=== PATIENT | female | born 1995 | race Caucasian/White ===

== ENCOUNTER → 2019-06-22 14:44 | Outpatient (BNVA) | payer MEDICAID, SELFPAY | PROVIDERS: Family Provider Internal Medicine; PCP Internal Medicine; Visit Provider Internal Medicine Rheumatology | DX: M05.79 Rheumatoid arthritis with rheumatoid factor of multiple sites without organ or systems involvement (principal); Z79.899 Other long term (current) drug therapy; Z79.52 Long term (current) use of systemic steroids | CPT/HCPCS: 99213 ==

== ENCOUNTER → 2019-08-02 08:37 | Outpatient (BNVA) | payer MEDICAID, SELFPAY | PROVIDERS: Family Provider Internal Medicine; PCP Internal Medicine; Visit Provider Nurse Practitioner Women's Health | DX: O99.519 Diseases of the respiratory system complicating pregnancy, unspecified trimester (principal); Z34.90 Encounter for supervision of normal pregnancy, unspecified, unspecified trimester; O09.891 Supervision of other high risk pregnancies, first trimester; O34.219 Maternal care for unspecified type scar from previous cesarean delivery; O99.321 Drug use complicating pregnancy, first trimester; Z86.19 Personal history of other infectious and parasitic diseases; M05.79 Rheumatoid arthritis with rheumatoid factor of multiple sites without organ or systems involvement; Z79.899 Other long term (current) drug therapy; O99.331 Smoking (tobacco) complicating pregnancy, first trimester; O99.340 Other mental disorders complicating pregnancy, unspecified trimester; F32.9 Major depressive disorder, single episode, unspecified; J45.909 Unspecified asthma, uncomplicated; Z3A.08 8 weeks gestation of pregnancy | CPT/HCPCS: 81003 ==

== ENCOUNTER → 2019-08-15 11:04 | Outpatient (BNVA) | payer MEDICAID, SELFPAY | PROVIDERS: Family Provider Internal Medicine; PCP Internal Medicine; Referring Provider Obstetrics & Gynecology; Visit Provider Obstetrics & Gynecology | DX: O09.891 Supervision of other high risk pregnancies, first trimester (principal); Z79.52 Long term (current) use of systemic steroids; F32.9 Major depressive disorder, single episode, unspecified; J45.909 Unspecified asthma, uncomplicated; M06.9 Rheumatoid arthritis, unspecified; O30.009 Twin pregnancy, unspecified number of placenta and unspecified number of amniotic sacs, unspecified trimester; O34.219 Maternal care for unspecified type scar from previous cesarean delivery; O99.321 Drug use complicating pregnancy, first trimester; O99.331 Smoking (tobacco) complicating pregnancy, first trimester; O99.340 Other mental disorders complicating pregnancy, unspecified trimester; O99.519 Diseases of the respiratory system complicating pregnancy, unspecified trimester; R21 Rash and other nonspecific skin eruption; Z86.19 Personal history of other infectious and parasitic diseases | CPT/HCPCS: 76801; 80053; 80307; 81003; 82950; 85027; 86592; 86762; 86803; 86850; 86900; 87086; 87340 ==

== ENCOUNTER → 2019-08-29 10:15 | Outpatient (BNVA) | payer MEDICAID, SELFPAY | PROVIDERS: Family Provider Internal Medicine; PCP Internal Medicine; Visit Provider Obstetrics & Gynecology | DX: O09.891 Supervision of other high risk pregnancies, first trimester (principal) | CPT/HCPCS: 81000; 87491; 87591 ==

== ENCOUNTER → 2019-09-25 10:35 | Outpatient (BNVA) | payer MEDICAID, SELFPAY | PROVIDERS: Family Provider Internal Medicine; PCP Internal Medicine; Visit Provider Obstetrics & Gynecology | DX: Z34.90 Encounter for supervision of normal pregnancy, unspecified, unspecified trimester (principal); O99.519 Diseases of the respiratory system complicating pregnancy, unspecified trimester | CPT/HCPCS: 81000 ==

== ENCOUNTER → 2019-10-24 08:08 | Outpatient (BNVA) | payer MEDICAID, SELFPAY | PROVIDERS: Family Provider Internal Medicine; PCP Internal Medicine; Visit Provider Obstetrics & Gynecology | DX: O09.891 Supervision of other high risk pregnancies, first trimester (principal); O99.321 Drug use complicating pregnancy, first trimester; D47.3 Essential (hemorrhagic) thrombocythemia | CPT/HCPCS: 80307; 81000; 85007; 85027 ==

== ENCOUNTER → 2019-11-21 10:53 | Outpatient (BNVA) | payer MEDICAID, SELFPAY | PROVIDERS: Family Provider Internal Medicine; PCP Internal Medicine; Visit Provider Obstetrics & Gynecology | DX: O99.519 Diseases of the respiratory system complicating pregnancy, unspecified trimester (principal); J45.909 Unspecified asthma, uncomplicated | CPT/HCPCS: 81000 ==

== ENCOUNTER → 2019-12-20 12:59 | Outpatient (BNVA) | payer MEDICAID, SELFPAY | PROVIDERS: Family Provider Internal Medicine; PCP Internal Medicine; Visit Provider Obstetrics & Gynecology | DX: O09.893 Supervision of other high risk pregnancies, third trimester (principal) | CPT/HCPCS: 81000; 82950; 85027 ==

== ENCOUNTER → 2019-12-31 13:09 | Outpatient (BNVA) | payer MEDICAID, SELFPAY | PROVIDERS: Family Provider Internal Medicine; PCP Internal Medicine; Visit Provider Obstetrics & Gynecology | DX: O09.893 Supervision of other high risk pregnancies, third trimester (principal); O99.340 Other mental disorders complicating pregnancy, unspecified trimester; F32.9 Major depressive disorder, single episode, unspecified; O30.043 Twin pregnancy, dichorionic/diamniotic, third trimester; O99.321 Drug use complicating pregnancy, first trimester; D47.3 Essential (hemorrhagic) thrombocythemia; Z30.2 Encounter for sterilization; O99.89 Other specified diseases and conditions complicating pregnancy, childbirth and the puerperium; M06.9 Rheumatoid arthritis, unspecified; Z86.19 Personal history of other infectious and parasitic diseases; O34.219 Maternal care for unspecified type scar from previous cesarean delivery; O99.519 Diseases of the respiratory system complicating pregnancy, unspecified trimester; J45.909 Unspecified asthma, uncomplicated; O99.331 Smoking (tobacco) complicating pregnancy, first trimester | CPT/HCPCS: 80307; 81000 ==

== ENCOUNTER → 2020-01-03 14:02 | Outpatient (BNVA) | payer MEDICAID, SELFPAY | PROVIDERS: Family Provider Internal Medicine; PCP Internal Medicine; Visit Provider Internal Medicine Rheumatology | DX: M05.79 Rheumatoid arthritis with rheumatoid factor of multiple sites without organ or systems involvement (principal); Z79.899 Other long term (current) drug therapy; O30.043 Twin pregnancy, dichorionic/diamniotic, third trimester; M25.461 Effusion, right knee; F17.210 Nicotine dependence, cigarettes, uncomplicated; Z79.52 Long term (current) use of systemic steroids; Z3A.00 Weeks of gestation of pregnancy not specified | CPT/HCPCS: 20610; 80500; 87070; 87075; 87205; 89050; 99214 ==

== ENCOUNTER → 2020-01-07 13:22 | Outpatient (BNVA) | payer MEDICAID, SELFPAY | PROVIDERS: Family Provider Internal Medicine; PCP Internal Medicine; Visit Provider Obstetrics & Gynecology | DX: Z34.90 Encounter for supervision of normal pregnancy, unspecified, unspecified trimester (principal); O30.043 Twin pregnancy, dichorionic/diamniotic, third trimester | CPT/HCPCS: 81000 ==

== ENCOUNTER → 2020-01-14 14:11 | Outpatient (BNVA) | payer MEDICAID, SELFPAY | PROVIDERS: Family Provider Internal Medicine; PCP Internal Medicine; Visit Provider Obstetrics & Gynecology | DX: Z34.90 Encounter for supervision of normal pregnancy, unspecified, unspecified trimester (principal) | CPT/HCPCS: 81000 ==

== ENCOUNTER → 2020-01-21 13:18 | Outpatient (BNVA) | payer MEDICAID, SELFPAY | PROVIDERS: Family Provider Internal Medicine; PCP Internal Medicine; Visit Provider Obstetrics & Gynecology | DX: O99.89 Other specified diseases and conditions complicating pregnancy, childbirth and the puerperium (principal); D47.3 Essential (hemorrhagic) thrombocythemia; M06.9 Rheumatoid arthritis, unspecified; Z86.19 Personal history of other infectious and parasitic diseases; O99.321 Drug use complicating pregnancy, first trimester; O99.331 Smoking (tobacco) complicating pregnancy, first trimester; O99.340 Other mental disorders complicating pregnancy, unspecified trimester; F32.9 Major depressive disorder, single episode, unspecified; O99.519 Diseases of the respiratory system complicating pregnancy, unspecified trimester; J45.909 Unspecified asthma, uncomplicated; O34.219 Maternal care for unspecified type scar from previous cesarean delivery | CPT/HCPCS: 81000 ==

== ENCOUNTER → 2020-01-22 10:58 | Outpatient (BNVA) | payer MEDICAID, SELFPAY | PROVIDERS: Family Provider Internal Medicine; PCP Internal Medicine; Visit Provider Internal Medicine Rheumatology | DX: M05.79 Rheumatoid arthritis with rheumatoid factor of multiple sites without organ or systems involvement (principal); O09.893 Supervision of other high risk pregnancies, third trimester; Z79.899 Other long term (current) drug therapy; M25.461 Effusion, right knee; Z3A.00 Weeks of gestation of pregnancy not specified | CPT/HCPCS: 20610; 99213; J1030 ==

== ENCOUNTER → 2020-01-28 14:54 | Outpatient (BNVA) | payer MEDICAID, SELFPAY | PROVIDERS: Family Provider Internal Medicine; PCP Internal Medicine; Visit Provider Obstetrics & Gynecology | DX: O09.893 Supervision of other high risk pregnancies, third trimester (principal); J45.909 Unspecified asthma, uncomplicated; D47.3 Essential (hemorrhagic) thrombocythemia; M06.9 Rheumatoid arthritis, unspecified; Z86.19 Personal history of other infectious and parasitic diseases; O34.219 Maternal care for unspecified type scar from previous cesarean delivery; F32.9 Major depressive disorder, single episode, unspecified; O30.043 Twin pregnancy, dichorionic/diamniotic, third trimester; O99.323 Drug use complicating pregnancy, third trimester; O34.211 Maternal care for low transverse scar from previous cesarean delivery; F12.90 Cannabis use, unspecified, uncomplicated; O99.343 Other mental disorders complicating pregnancy, third trimester; O99.333 Smoking (tobacco) complicating pregnancy, third trimester; F17.210 Nicotine dependence, cigarettes, uncomplicated; Z67.91 Unspecified blood type, Rh negative; Z3A.34 34 weeks gestation of pregnancy | CPT/HCPCS: 81000 ==

== ENCOUNTER → 2020-02-04 09:09 | Outpatient (BNVA) | payer MEDICAID, SELFPAY | PROVIDERS: Family Provider Internal Medicine; PCP Internal Medicine; Visit Provider Obstetrics & Gynecology | DX: O09.893 Supervision of other high risk pregnancies, third trimester (principal); Z86.19 Personal history of other infectious and parasitic diseases; D47.3 Essential (hemorrhagic) thrombocythemia; O99.89 Other specified diseases and conditions complicating pregnancy, childbirth and the puerperium; M06.9 Rheumatoid arthritis, unspecified; O34.219 Maternal care for unspecified type scar from previous cesarean delivery; J45.909 Unspecified asthma, uncomplicated; F32.9 Major depressive disorder, single episode, unspecified | CPT/HCPCS: 81000; 87081 ==

== ENCOUNTER → 2020-02-11 13:21 | Outpatient (BNVA) | payer MEDICAID, SELFPAY | PROVIDERS: Family Provider Internal Medicine; PCP Internal Medicine; Visit Provider Obstetrics & Gynecology | DX: O09.893 Supervision of other high risk pregnancies, third trimester (principal); M25.461 Effusion, right knee; Z79.899 Other long term (current) drug therapy; M05.79 Rheumatoid arthritis with rheumatoid factor of multiple sites without organ or systems involvement; D47.3 Essential (hemorrhagic) thrombocythemia; Z86.19 Personal history of other infectious and parasitic diseases; O99.333 Smoking (tobacco) complicating pregnancy, third trimester; O99.343 Other mental disorders complicating pregnancy, third trimester; F32.9 Major depressive disorder, single episode, unspecified; J45.909 Unspecified asthma, uncomplicated; O30.043 Twin pregnancy, dichorionic/diamniotic, third trimester; F17.210 Nicotine dependence, cigarettes, uncomplicated; F12.90 Cannabis use, unspecified, uncomplicated; O99.323 Drug use complicating pregnancy, third trimester; F41.9 Anxiety disorder, unspecified; Z3A.36 36 weeks gestation of pregnancy | CPT/HCPCS: 81000 ==

== ENCOUNTER 2020-02-20 09:00 | Outpatient (CLI) | payer MEDICAID, SELFPAY | END 2020-02-20 09:05 | disposition home or self-care (01) | LOC: LAB 01-14 18:34 | PROVIDERS: PCP Family Medicine; Visit Provider Obstetrics & Gynecology | DX: Z34.90 Encounter for supervision of normal pregnancy, unspecified, unspecified trimester (principal) | CPT/HCPCS: 81000 ==

== ENCOUNTER 2020-02-20 11:50 | Outpatient (CLI) | payer MEDICAID, SELFPAY ==
[2020-02-21 16:13] LABS: Coronavirus Lab Test PTC Negative
== END 2020-02-20 11:55 | disposition home or self-care (01) ==
LOC: OPOB 11:54
PROVIDERS: PCP Internal Medicine; Visit Provider Obstetrics & Gynecology
DX: O26.899 Other specified pregnancy related conditions, unspecified trimester (principal); Z3A.00 Weeks of gestation of pregnancy not specified; R10.9 Unspecified abdominal pain; Z20.828 Contact with and (suspected) exposure to other viral communicable diseases
CPT/HCPCS: 87635; 99211

== ENCOUNTER → 2020-02-22 08:51 | Outpatient (BNVA) | payer MEDICAID, SELFPAY | PROVIDERS: PCP Internal Medicine; Visit Provider Internal Medicine | DX: O09.893 Supervision of other high risk pregnancies, third trimester (principal); Z11.59 Encounter for screening for other viral diseases | CPT/HCPCS: 87635 ==

== ENCOUNTER 2020-02-24 16:36 | Inpatient (IN) | payer MEDICAID, SELFPAY ==
[2020-02-24] VITALS (8 sets, daily range): BP systolic 119–136; BP diastolic 72–84; PULSE 88–107; RESP 18; TEMP 36.8
[2020-02-24 18:09] LABS: Basophils # 0.1 10^3/uL (0.0-0.1); Basophils % 0.4 %; Eosinophils # 0.2 10^3/uL (0.0-0.8); Eosinophils % 1.2 %; Hematocrit 44.1 % (37.0-47.0); Hemoglobin 14.6 g/dL (11.5-15.3); Lymphocytes # 3.1 10^3/uL (0.8-4.8); Lymphocytes % 21.7 %; Mean Corpuscular HGB Conc 33.1 g/dL (30.0-36.0); Mean Corpuscular Hemoglobin 29.4 pg (28.0-34.0); Mean Corpuscular Volume 88.7 fL (81-99); Mean Platelet Volume 10.7 fL (7.4-10.4); Monocytes # 0.9 10^3/uL (0.2-0.9); Monocytes % 6.3 %; Neutrophils % 69.8 %; Nucleated Red Blood Cells % 0 %; Platelet Count 271 10^3/cmm (130-400); Red Blood Count 4.97 10^6/uL (4.1-5.3); Red Cell Distribution Width 14.7 % (12.1-15.1); White Blood Count 14.5 10^3/uL (4.0-10.0)
[2020-02-24] MEDS: fentaNYL 50 mcg/mL INJ 2mL IV (18:40)
[2020-02-24] MEDS: lactated ringers 1,000 ML 125 ML IV (18:41)
== END 2020-02-24 20:10 | disposition home or self-care (01) | DRG 833 ==
LOC: OPOB 16:43 → OBGYN 16:45 → OPOB 18:11 → OBGYN 18:11
PROVIDERS: Admitting Provider Obstetrics & Gynecology; PCP Internal Medicine; Visit Provider Obstetrics & Gynecology
DX: O30.009 Twin pregnancy, unspecified number of placenta and unspecified number of amniotic sacs, unspecified trimester (principal); Z3A.00 Weeks of gestation of pregnancy not specified
CPT/HCPCS: 85025; 86850; 86900; 99211; J3010

== ENCOUNTER 2020-02-25 05:10 | Inpatient (IN) | payer MEDICAID, SELFPAY ==
--- NOTE | 2020-02-20 10:04 | ANES.PREANE2 ---
Pre-Anesthetic Assessment Pre-Anesthetic Assessment: Height/Weight: Height 1.68 m Preop Diagnosis: IUP Proposed Procedure: Operation Date: 02/25/20 07:00 Proposed Procedures p Section Repeat With Tubal/97072 01125 Z34.90 Z98.891 Z30.2(Bilateral) - Nagi Casiano MD Familial anesthetic complications: morphine makes her itch Social: Social History: Tobacco Exam: Pre-Anes Outpt Exam: alert, oriented x 3, clear to auscultation bilaterally and regular rate & rhythm Airway: Cervical ROM: WNL MP: 1 Dentition: Chipped Pulmonary: Pulmonary: Asthma GI: GI: GERD Anesthetic Plan: ASA status: 2 Anesthesia: Regional (specify below) Risk of > 500 ml blood loss (7ml/kg in children): Yes, adequate IV access and fluids planned PFSH Anesthesia PFSH: Medical History Anxiety with depression Diagnosed in 2015 and has been on citalopram managed by her primary care provider Emely at [facility] Asthma Diagnosed as a child. It is usually controlled on albuterol as needed. She has used Advair a couple of times in the past but has not needed to use this since the age of 11. 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 Norman at [facility] [place] for PROM with breech presentation. ---->single layer closure with no extensions. 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
[2020-02-25] VITALS (19 sets, daily range): BP systolic 97–160; BP diastolic 58–89; PULSE 56–81; RESP 16–18; TEMP 36.4–36.8; O2SAT 94–99
[2020-02-25 05:57] LABS: Basophils # 0.1 10^3/uL (0.0-0.1); Basophils % 0.4 %; Eosinophils # 0.2 10^3/uL (0.0-0.8); Eosinophils % 1.5 %; Hemoglobin 14.8 g/dL (11.5-15.3); Lymphocytes # 3.1 10^3/uL (0.8-4.8); Lymphocytes % 20.4 %; Mean Corpuscular HGB Conc 32.9 g/dL (30.0-36.0); Mean Corpuscular Hemoglobin 29.2 pg (28.0-34.0); Mean Corpuscular Volume 88.8 fL (81-99); Mean Platelet Volume 10.6 fL (7.4-10.4); Monocytes % 6.3 %; Neutrophils % 70.9 %; Nucleated Red Blood Cells % 0 %; Platelet Count 271 10^3/cmm (130-400); Red Blood Count 5.07 10^6/uL (4.1-5.3); Red Cell Distribution Width 14.9 % (12.1-15.1)
[2020-02-25] MEDS: lactated ringers 1,000 ML 999 ML IV (06:06)
[2020-02-25] MEDS: famotidine 20 mg/2 mL INJ IVP (06:57)
[2020-02-25] MEDS: metoclopramide 5 mg/mL SDV 2 mL 10 MG IVP (06:57)
[2020-02-25] MEDS: citric acid-sodium citrate 30 mL UDC PO (06:58)
--- NOTE | 2020-02-25 07:02 | W.PM.OPSUD ---
Surgery/Procedure H&P Update DATE OF PROCEDURE: February 25, 2020 DATE H&P PERFORMED: 02/20/20 H&P UPDATE INFORMATION: I have reviewed H&P completed within last 30 days, I have examined patient prior to procedure, No changes to prior documentation and H&P is in [facility] [place] EMR on date indicated PREOP DIAGNOSIS: IUP PRIMARY INDICATION FOR PROCEDURE: twins , RCD PLANNED PROCEDURE: Operation Date: 02/25/20 07:00 Proposed Procedures p Section Repeat With Tubal/[id number] 09137 Z34.90 Z98.891 Z30.2(Bilateral) - Nagi Casiano MD
[2020-02-25] MEDS: methylergonovine 0.2 mg/mL INJ 1 mL IM (07:55)
--- NOTE | 2020-02-25 08:47 | P.OP_ITS ---
Operative Report Date of procedure: February 25, 2020 OPERATIVE REPORT Date of surgery: 02/25/2020 Date of dictation: 02/25/2020 Preoperative diagnosis: 25-year-old 2 para 1-0-0-1 at 38 weeks and 2 days, dichorionic diamniotic twin gestation, rheumatoid arthritis on chronic long-term steroids, asthma, herpes on acyclovir suppression, depression controlled on medication, thrombocythemia, request for sterilization, tobacco use in Postoperative diagnosis/findings: Same, normal tubes and ovaries bilaterally, twin A-baby girl-Shoshana weighing 6 pounds 0 ounces-20 730 with Apgars 8/9, clear fluid, cephalic. Twin B-Shane weighing 8 pounds 5 ounces-2505, 19-1/2 inches long Apgars 8/9, complete breech, clear fluid. Procedure done: Repeat low transverse delivery via Pfannenstiel incision with total salpingectomy for sterilization Specimens removed/disposition of specimens: Placenta and cord x2 sent to pathology, right and left fallopian tubes sent to pathology Surgeon: Dr. Nagi Norman assistant professor of spanish: Gretta Warren Anesthesia: Spinal anesthesia Estimated blood loss: 900 mL ml Intravenous fluids: 1300 mL of LR Urine output: 200 mL of clear urine at the end of procedure Medications:as per anesthesia Complications:none, patient was left to recovery in a stable condition. INDICATION FOR SURGERY: Ms. Gaston is a 25-year-old 2 para 1-0-0-1 with a dichorionic diamniotic twin gestation and previous delivery who desires repeat C- section and tubal ligation. She declined trial of labor. Prior to the surgery we again confirmed that she desired permanent sterilization.We discussed that a tubal ligation is a permanent procedure and that should she desire to have a reversal procedure the success rate of a reversal procedure is low. I also discussed the failure rate of tubal ligation is less than 1% and that should she find out she is after having the procedure, she needs to see an MEDICAL TRANSCRIPTION EDITOR immediately as her risk of having an ectopic is higher. She also understands that the regret rate is higher when people to choose permanent sterilization at a younger age. We also discussed the other forms of reversible contraceptions including an IUD, patch, OCP, nexplanon, Depo-Provera. She understands that she has other options but she wants to have her tubes tied. We discussed the surgical procedure total salpingectomy versus partial salpingectomy with me and reasoning behind this was reviewed with patient. She is absolutely certain she does not want anymore children and definitely wants to proceed with total salpingectomy at this time. She understands there is no chance for reversal with this procedure. PROCEDURE: After consent was obtained, patient was taken to the operating room where spinal anesthesia was placed without difficulty. She was placed supine on the table with a left lateral wedge. Altamirano catheter and SCDs were placed. Patient was given stress dose of steroids-50 mg of hydrocortisone and 2 g of Ancef and route to the operating room.. The abdomen was shaved and then prepped with duo prep. She was draped in a sterile fashion. After checking adequacy of anesthesia, a Pfannenstiel incision was made 2 cm above the pubic symphysis over her old incision. The incision was carried down to the fascia using the Bovie. The fasc ia was nicked in the midline and the fascial incision was extended laterally using curved Mayos. The inferior aspect of the fascia was grasped with lorna clamps and dissected off from the underlying rectus muscle. This was repeated again superiorly without any difficulty. The rectus muscle was . A lorena was made in the peritoneum and the peritoneal incision was carried inferiorly taking care to proceed in layers so as to avoid the bladder. The peritoneal incision was extended superiorly as well. No adhesions were noted from the uterus to the anterior abdominal wall. The uterus was noted to be rotated to the left. There was some adhesions in the area of the bladder to the lower uterine segment as expected with repeat . The bladder peritoneum was grasped with smooth forceps a bladder flap was created. The bladder blade was replaced thus protecting the bladder. A LOW TRANSVERSE UTERINE INCISION was made with a scalpel till the amniotic membrane was reached. The uterine incision was then extended laterally using bandage scissors. Amniotomy was done with Allis clamps and clear amniotic fluid was drained. The breech of baby boy be who was higher up was noted to be presenting and the breech was grasped and breech and legs were delivered without any difficulty as baby was in complete breech presentation. The head followed. No nuchal cord identified. The cord was clamped and cut and baby handed to the waiting legal director Dr. Montag. Second amniotic sac was noted and artificial rupture of membranes with Allis was done with clear fluid. The head of the baby A-female was brought up to the level of the incision and delivered with fundal pressure. The remainder of body followed without any difficulty. The nose and mouth were suctioned, the umbilical cord was clamped and cut and the baby was handed off to the waiting legal director, Dr. Marcelino. The placenta was delivered spontaneously with fundal massage. It was noted to be intact and inspected and noted to be complete with 2 separate membranes and sent to pathology. 2 clamps were placed on umbilical cord of baby A-female and one cord clamp was placed on umbilical cord for baby B-male. The uterus was exteriorized. The interior of the uterus was cleaned of all clot and debris and was noted to be boggy and a single dose of Methergine was given after which with uterine massage the fundus was noted to be florence well.. The uterine incision was closed with 0 Vicryl in a running interlocking manner. Good hemostasis and reapproximation was obtained. [id number] sutures were placed in areas of oozing. The abdomen was irrigated and the gutters were cleaned of clot and debris. Normal tubes and ovaries were noted bilaterally. Attention was turned towards the fallopian tubes and both tubes were identified and followed towards the fimbriated end. Using the abdominal Vuoyant, the mesosalpinx inferior to the fallopian tube was grasped clamped cauterized and then cut. This was done first on the right side in a sequential fashion until the cornual edge of the fallopian tube was reached and the entire fallopian tube was from the adnexa. Good hemostasis and sealed edges were noted. This was then done on the left side in a similar fashion taking care to grasp the mesosalpinx clamped cauterized and cut especially around vascular areas and saturated the entire left fallopian tube was removed. Good hemostasis was noted. The uterus was placed back into the abdomen and uterine incision was noted to be hemostatic. Area of tubal ligation was also inspected and was noted to be hemostatic. The peritoneum was closed with a 2-0 plain in a continuous stitch. The rectus muscle was reapproximated with 2-0 plain suture in a mattress stitch. Good hemostasis was noted in the rectus muscle layer. The fascia was inspected for any defects and none were found and the fascia was closed with 0 looped PDS in continuous stitch. The subcutaneous plane was then irrigated and hemostasis was obtained using the Bovie. The subcutaneous plane was then reapproximated using 2-0 plain suture in a continuous manner. The skin was then closed with 4-0 Monocryl in a subcuticular fashion. Good reapproximation and hemostasis was noted. Steri-Strips were applied. The incision was dressed with Telfa ,ABD and paper tape. The fundus was noted to be firm at the end of the procedure and excess blood was expressed from the vagina. The patient was left to recover in a stable condition. Pre-op Diagnosis: IUP
[2020-02-25] MEDS: dextrose 5%-lactated ringers 1,000 ML 125 ML IV (09:31)
--- NOTE | 2020-02-25 09:44 | PC.NURSE ---
Patient ambulated to OR room at this time
--- NOTE | 2020-02-25 10:05 | PC.NURSE ---
Patient moved up from PACU to PP room 205 at this time
--- NOTE | 2020-02-25 14:46 | PC.NURSE ---
This underwriter mortgage loan went in and spoke with mom regarding temperature regulation and glucose, parents were educated that infants needed to be wrapped up with clothes and a hat on at all times to keep the babies temperatures regulated. Parents were also instructed to feed the infants every 2 hours or on demand.
[2020-02-25] MEDS: hydrocortisone 100 mg/2 mL SDV 25 MG IVP ×2 (14:56→22:59)
[2020-02-25] MEDS: HYDROcodone-acetaminophen 5-325 mg Tablet PO (19:09)
[2020-02-25] MEDS: docusate sodium 100 mg Capsule PO (19:09)
[2020-02-25] MEDS: ferrous sulfate EC 325 mg Tablet PO (19:09)
[2020-02-25 21:01] LABS: Hematocrit 40.9 % (37.0-47.0); Hemoglobin 13.9 g/dL (11.5-15.3); Mean Corpuscular Hemoglobin 29.9 pg (28.0-34.0); Mean Platelet Volume 10.4 fL (7.4-10.4); Platelet Count 256 10^3/cmm (130-400); Red Blood Count 4.65 10^6/uL (4.1-5.3); Red Cell Distribution Width 14.4 % (12.1-15.1); White Blood Count 19.3 10^3/uL (4.0-10.0)
[2020-02-26] VITALS (7 sets, daily range): BP systolic 108–122; BP diastolic 71–78; PULSE 71–82; RESP 16; TEMP 36.4–36.6; O2SAT 94–95
[2020-02-26] MEDS: HYDROcodone-acetaminophen 5-325 mg Tablet PO ×3 (02:14→12:09)
[2020-02-26] MEDS: prenatal vitamin Capsule 1 CAP PO (07:33)
[2020-02-26] MEDS: hydrocortisone 100 mg/2 mL SDV 25 MG IVP (07:33)
[2020-02-26] MEDS: docusate sodium 100 mg Capsule PO ×2 (08:27→17:52)
--- NOTE | 2020-02-26 12:52 | ANE.PACU2 ---
Inpatient post-anesthesia follow up: Airway intact: Yes Vital signs: Temperature 97.9 F Pulse Rate 71 Respiratory Rate 16 Blood Pressure 118/72 Pulse Oximetry 94 Oxygen Delivery Me thod Room Air Oxygen Flow Rate Fraction of Inspir ed Oxygen Hydration adequate: Yes Nausea and vomiting: No Pain level: 4 Mental status: Baseline Additional Comments: no signs of infection at neuraxial site, no lower extremitiy weakness/numbness, no headaches, urinating well
[2020-02-26] MEDS: predniSONE 10 mg Tablet PO (15:55)
--- NOTE | 2020-02-26 18:02 | P.PN_ITS ---
Subjective Subjective: Interval history: SUBJECTIVE: Ms. Gaston is doing well today. She wants to get her IV out soon. She has been ambulating well passing flatus just recently and is looking forward to a regular diet. She denies nausea vomiting fever chills shortness of breath and chest pain patient denies any calf tenderness or leg swelling. She is breast- feeding and bonding well with her children without any problem. She has pain but it is well controlled with p.o. pain medication. OBJECTIVE/PHYSICAL EXAM: Gen.: No acute distress Heart: S1-S2 heard, regular rate and rhythm Lungs: Clear to auscultation bilaterally Abdomen: Soft, fundus firm below umbilicus, tenderness around incision. Incision: Clean dry and intact with Steri-Strips. Legs: No calf tenderness, trace bilateral pitting pedal edema. ASSESSMENT AND PLAN: 25-year-old 2 para 2-0-0-3 status post repeat delivery with total salpingectomy on 02/25/2020 -Doing well-continue routine postoperative care -Altamirano has been discontinued and she is voiding freely -Hemoglobin stable -Asthma stable on Advair-has not needed pro-air -Rheumatoid arthritis-completed stress dose of steroid and is back on 10 mg of p.o. steroids which we will continue postdelivery as well -Anticipate discharge home tomorrow if she continues to do well -Passed flatus-advance to regular diet -She desires her son to be circumcised and consents were signed today Vitals/I&O/Wt Last Vital Signs Temp 97.8 F 02/26/20 15:58 Pulse 72 02/26/20 15:58 Resp 16 02/26/20 15:58 BP 122/77 02/26/20 15:58 Pulse Ox 94 02/26/20 15:58 02/26/20 02/26/20 02/26/20 06:59 14:59 22:59 Output Total 1000 / 4550 Balance -1000 / -3250 Weight last 48 hrs Weight 192 lb Weight 6.773 oz Weight 192 lb Physical Exam Urinary Catheter Management^: Altamirano: Cath Placed During This Visit: yes, but has since been removed by the nurse Reason for Continuing Indwelling Catheter: Decision to DC Catheter Urinary Catheter Date of Insertion: 02/25/20 Urinary Catheter Time of Insertion: 07:15 Date Urinary Catheter Removed: 02/25/20 Time Urinary Catheter Discontinued: 20:45 Data : 02/25/20 20:30 Attestations Medical Necessity Statement*: Anticipate discharge home tomorrow as she needs to stay to recover from delivery Coding Level of Care Code Acute 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
[2020-02-27 04:15] VITALS: BP 118/75; PULSE 73; RESP 13; TEMP 36.7; O2SAT 96
--- NOTE | 2020-02-27 07:11 | P.DS_ITS ---
Discharge Providers Date of Admission: 02/25/20 05:10 Date of Discharge: February 27, 2020 Attending Provider at Admission: Nagi Casiano MD Attending Provider at Discharge: Nagi Casiano MD Primary Care Provider: Ashley Marcelino MD Reason for Visit Reason for Visit: due 02/24 Hospital Course Discharge Summary: Ms. Gaston is a 25-year-old 2 para 1-0-0-1 with a dichorionic diamniotic twin gestation and previous delivery who desires repeat and tubal ligation. She declined trial of labor. Prior to the surgery we again confirmed that she desired permanent sterilization.We discussed that a tubal ligation is a permanent procedure and that should she desire to have a reversal procedure the success rate of a reversal procedure is low. I also discussed the failure rate of tubal ligation is less than 1% and that should she find out she is after having the procedure, she needs to see an GAS SHOVEL OPERATOR immediately as her risk of having an ectopic is higher. She also understands that the regret rate is higher when people to choose permanent sterilization at a younger age. We also discussed the other forms of reversible contraceptions including an IUD, patch, OCP, nexplanon, Depo-Provera. She understands that she has other options but she wants to have her tubes tied. We discussed the surgical procedure total salpingectomy versus partial salpingectomy with me and reasoning behind this was reviewed with patient. She is absolutely certain she does not want anymore children and definitely wants to proceed with total salpingectomy at this time. She understands there is no chance for reversal with this procedure. HOSPITAL COURSE: She underwent an uncomplicated repeat delivery and tubal ligation on 02/25/2020. See operative report for details.. She did well on day 0 and was ambulating well, tolerating clear diet, voiding freely after catheter removal. She was breast-feeding without difficulty and bonding well with her children. She desired her son to be circumcised which was performed on day of life 1 without any difficulty.. Pain was well-controlled with by mouth pain medication. She denied nausea, vomiting, fever, chills, shortness of breath, leg pain. She had moderate vaginal bleeding. On day #1 she continued to do well with stable vital signs and stable hemoglobin at 11.8. She passed flatus was tolerating regular diet and had no other problems. Incision was clean dry and intact. She received IV hydrocortisone for the first 24 hours and was then switched to p.o. prednisone that she was taking prior to surgery.. She also received Advair during her hospitalization and had SCDs for DVT prophylaxis she was discharged home on day 2 in a stable condition, as she desired early discharge. Warning signs for endometritis, wound infection, mastitis, DVT/PE were reviewed with her. Post delivery activity restrictions were also reviewed with her at all her questions were answered to her satisfaction. Has had total salpingectomy for sterilization. -On day of discharge she showed me a small boil on her inner thigh that has been bothering her for the last 3 days--she was sent home with a prescription for Keflex to help this heal. No sign of abscess today and the boil measures 2 x 2 cm--right inner thigh. EXAM AT DISCHARGE: Gen.: No acute distress Heart: S1-S2 heard, regular rate and rhythm Lungs: Clear to auscultation bilaterally Abdomen: Soft, fundus firm below umbilicus, tenderness around incision. Incision: Clean dry and intact with Steri-Strips. Legs: No calf tenderness, +1 bilateral pitting pedal edema. CONDITION AT DISCHARGE: Stable Physical Exam Urinary Catheter Management^: Altamirano: Cath Placed During This Visit: yes, but has since been removed by the nurse Reason for Continuing Indwelling Catheter: Decision to DC Catheter Urinary Catheter Date of Insertion: 02/25/20 Urinary Catheter Time of Insertion: 07:15 Date Urinary Catheter Removed: 02/25/20 Time Urinary Catheter Discontinued: 20:45 Discharge Data Data Completed and Pending: Pending at discharge Category Date Time Status Pathology: Surgic al [PTH] Routine Pth 02/26/20 14:31 Ordered Vitals: Last Vital Signs Temp 98.0 F 02/27/20 04:15 Pulse 73 02/27/20 04:15 Resp 13 02/27/20 04:15 BP 118/75 02/27/20 04:15 Pulse Ox 96 02/27/20 04:15 Discharge Plan Discharge Patient Disposition: Home Condition: Stable Prescriptions: New hydrocodone-acetaminophen 5-325 mg tablet 1 tab PO Q6H Qty: 28 RF: 0 ibuprofen 800 mg tablet 800 mg PO Q8H Qty: 30 RF: 0 cephalexin [Keflex] 250 mg capsule 250 mg PO BID 7 Days Qty: 14 RF: 0 docusate sodium 100 mg Capsule 100 mg PO BID PRN (Reason: constipation) Qty: 30 RF: 0 Continued prenat.vits,gita,tuw-zrsw-skkka Tablet 1 tab PO DAILY RF: 0 ferrous sulfate 325 mg (65 mg iron) tablet,delayed release (DR/EC) 325 mg PO DAILY RF: 0 citalopram 10 mg tablet 10 mg PO DAILY Qty: 30 RF: 5 folic acid 400 mcg tablet 0.4 mg PO DAILY RF: 0 acetaminophen [Tylenol] 325 mg capsule 325 mg PO QID PRN (Reason: Pain) RF: 0 prednisone 5 mg tablet 10 mg PO DAILY Qty: 60 RF: 3 albuterol sulfate [ProAir HFA] 90 mcg/actuation HFA aerosol inhaler 2 puff INHALATION Q6H PRN (Reason: shortness of breath or wheezing) Qty: 8 RF: 0 fluticasone propion-salmeterol [Advair Diskus] 100-50 mcg/dose blister with device 1 inh INHALATION BID Qty: 60 RF: 0 Discontinued acyclovir 400 mg tablet 400 mg PO TID Qty: 63 RF: 0 Cimzia 400 mg/2 mL (200 mg/mL x 2) syringe kit 200 mg SUBCUT .EVERY OTHER WEEK Qty: 2 RF: 3 Discharge Orders: Discharge Order (Routine); Ordered 02/27/20 Ordered By: Nagi Casiano Referrals: Nagi Casiano MD [Physician] - 03/12/20 7:45 am (Your 2 week incision check/visit is scheduled on 03/12/2020 at 7:[address] Muñoz. Your 6 week visit is scheduled on 04/14/2020 at 9:[address] Muñoz.) Discharge Diet: Usual diet Patient Instructions: Iron Supplements (By mouth), Acetaminophen (By mouth), Albuterol (By breathing), Prednisone (By mouth), Acyclovir (By mouth), Vitamins (By mouth), Folic Acid (By mouth), Citalopram (By mouth), Fluticasone/Salmeterol (By breathing), Certolizumab (Injection), OB WHC, OB Discharge Report, OB Food/Drug Interaction Guide, OB Home Care, OB Proud Parent Packet Activity Restrictions/Additional Instructions: Pelvic rest for 6 weeks, no heavy lifting for 6 weeks Discharge Attestations Time Spent in Discharge Care*: greater than 30 min Quality Metrics Clinical Quality Measures During this hospital stay, did patient experience: None Coding Level of Care Code Acute Rim Turning Finisher for Chg Fwd History History History 3 Term 2 Miscarriages/Ectopic 1 0 Living Children 3 Other History: SABX 1 CDX 2 1---->2017-spontaneous miscarriage at 5 weeks-no D&C needed 2---->06/22/2017---primary low transverse delivery at 38 weeks and 6 days when patient presented with premature rupture of membranes and breech presentation. Performed by Dr. Muñoz at [facility] [place]. Baby girl, Jonny weighing 6 pounds 5 ounces. Rheumatoid arthritis was well controlled throughout the on steroids. 3----> 02/25/2020----> repeat low transverse delivery at 38 weeks and 2 days gestation for dichorionic diamniotic twin gestation at term performed by Dr. Muñoz at [facility] [place]-scheduled with total salpingectomy for sterilization. Baby girl---Shoshana weighing 6 pounds 0 ounces and baby boy Shane weighing 5 pounds 8 ounces [facility] GAS SHOVEL OPERATOR Medical History Anxiety with depression Diagnosed in 2016 and has been on citalopram managed by her primary care provider Emely at [facility] Asthma Diagnosed as a child. It is usually controlled on albuterol as needed. She has used Advair a couple of times in the past but has not needed to use this since the age of 11. 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 Muñoz at [facility] [place] for PROM with breech presentation. ---->single layer closure with no extensions. 02/25/2020--> repeat delivery with total salpingectomy for twin gestation by Dr. muñoz at [facility] [place] H/O lumpectomy (~2010) Left breast-- benign Status post tubal ligation 02/25/2020----total salpingectomy at time of second performed by Dr. Muñoz at [facility] [place]. 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
[2020-02-27 08:05] VITALS: PULSE 80; RESP 16; O2SAT 97
[2020-02-27 08:06] VITALS: PULSE 80
[2020-02-27] MEDS: prenatal vitamin Capsule 1 CAP PO (09:32)
[2020-02-27] MEDS: docusate sodium 100 mg Capsule PO (09:33)
[2020-02-27 09:36] VITALS: BP 118/79; PULSE 76; RESP 18; TEMP 36.7; O2SAT 98
[2020-02-27 11:25] VITALS: BP 115/72; PULSE 70; RESP 17; TEMP 36.7; O2SAT 98
[2020-02-27 11:36] VITALS: BP 115/72; PULSE 70; RESP 17; TEMP 36.7; O2SAT 98
--- NOTE | 2020-02-28 11:00 | PC.NURSE ---
THIS CUPROUS CHLORIDE HELPER RECEIVED CALL FROM DR. CARMONA THAT PATHOLOGY WAS CALLING ABOUT PLACENTA AND ASKED THAT I CONTACT THEM AND FIND OUT WHAT EXACTLY THEY NEED. THIS CUPROUS CHLORIDE HELPER CALLED AND THEY SAID THEY HAVE 2 SPECIMEN CONTAINERS DOWN THERE AND ONE IS TUBES AND THE OTHER LOOKS TO BE PLACENTAS. ORDER WAS CHANGED TO REFLECT THAT THERE WAS ONLY 2 SPECIMENS WHICH #1 WAS TUBES AND #2 WERE THE PLACENTAS. TOLD HM TO CALL BACK IF THIS WAS NOT WHAT HE NEEDED.
== END 2020-02-27 11:29 | disposition home or self-care (01) | DRG 784 ==
PROVIDERS: Admitting Provider Obstetrics & Gynecology; PCP Internal Medicine; Visit Provider Obstetrics & Gynecology
PROC: 10D00Z1 Extraction of Products of Conception, Low, Open Approach (ICD-10-PCS; CPT 59514; principal; 2020-02-25 07:00)
DX: O34.211 Maternal care for low transverse scar from previous cesarean delivery (principal); O98.32 Other infections with a predominantly sexual mode of transmission complicating childbirth; N85.8 Other specified noninflammatory disorders of uterus; Z3A.38 38 weeks gestation of pregnancy; Z37.2 Twins, both liveborn; O99.334 Smoking (tobacco) complicating childbirth; F17.210 Nicotine dependence, cigarettes, uncomplicated; O99.344 Other mental disorders complicating childbirth; F32.9 Major depressive disorder, single episode, unspecified; O30.043 Twin pregnancy, dichorionic/diamniotic, third trimester; A60.09 Herpesviral infection of other urogenital tract; Z30.2 Encounter for sterilization; O64.1XX2 Obstructed labor due to breech presentation, fetus 2
CPT/HCPCS: 12345; 36415; 51702; 58611; 59025; 59409; 85025; 85027; 86900; 88302; 88307; 94640; 94669; 96372; 96375; 98960; J0690; J1720; J2210; J2274; J2405; J2765; J3490; J3535; J7512

== ENCOUNTER → 2020-04-07 10:03 | Outpatient (BNVA) | payer MEDICAID, SELFPAY | PROVIDERS: Family Provider Internal Medicine; PCP Internal Medicine; Visit Provider Internal Medicine Rheumatology | DX: M05.79 Rheumatoid arthritis with rheumatoid factor of multiple sites without organ or systems involvement (principal); Z79.899 Other long term (current) drug therapy; M25.461 Effusion, right knee; F17.210 Nicotine dependence, cigarettes, uncomplicated; Z79.52 Long term (current) use of systemic steroids | CPT/HCPCS: 99214 ==

== ENCOUNTER 2020-04-07 11:25 | Outpatient (CLI) | payer MEDICAID, SELFPAY ==
[2020-04-07 13:09] LABS: Basophils # 0.1 10^3/uL (0.0-0.1); Basophils % 0.6 %; Eosinophils # 0.1 10^3/uL (0.0-0.8); Eosinophils % 0.7 %; Hematocrit 48.1 % (37.0-47.0); Hemoglobin 15.6 g/dL (11.5-15.3); Lymphocytes % 21.3 %; Mean Corpuscular HGB Conc 32.4 g/dL (30.0-36.0); Mean Corpuscular Hemoglobin 29.1 pg (28.0-34.0); Mean Corpuscular Volume 89.6 fL (81-99); Mean Platelet Volume 9.5 fL (7.4-10.4); Monocytes # 0.3 10^3/uL (0.2-0.9); Monocytes % 3.3 %; Neutrophils # 6.96 10^3/uL (1.8-7.7); Neutrophils % 73.9 %; Nucleated Red Blood Cells % 0 %; Platelet Count 367 10^3/cmm (130-400); Red Blood Count 5.37 10^6/uL (4.1-5.3); Red Cell Distribution Width 13.6 % (12.1-15.1); White Blood Count 9.4 10^3/uL (4.0-10.0)
[2020-04-07 13:26] LABS: Alanine Aminotransferase 20 U/L (0-33); Albumin Level 4.4 g/dL (3.5-5.2); Alkaline Phosphatase 137 IU/L (35-105); Aspartate Amino Transferase 16 U/L (0-32); C Reactive Protein 1.5 mg/L (0.0-4.9); Glomerular Filtration Rate 120.8 mL/min (90-130); Total Bilirubin 0.4 mg/dL (0.15-1.2); Total Protein 7.4 g/dL (6.6-8.7)
[2020-04-07 14:33] LABS: Erythrocyte Sedimentation Rate 15 mm/hr (0-15)
== END 2020-04-07 11:26 | disposition home or self-care (01) ==
LOC: LAB 11:27
PROVIDERS: PCP Internal Medicine; Visit Provider Internal Medicine Rheumatology
DX: Z79.899 Other long term (current) drug therapy (principal)
CPT/HCPCS: 36415; 80076; 82565; 85025; 85651; 86140

== ENCOUNTER → 2020-06-18 15:16 | Outpatient (BNVA) | payer BC, MEDICAID, SELFPAY | PROVIDERS: PCP Internal Medicine; Visit Provider Internal Medicine Rheumatology | DX: M05.79 Rheumatoid arthritis with rheumatoid factor of multiple sites without organ or systems involvement (principal); M25.461 Effusion, right knee; M25.561 Pain in right knee; Z79.899 Other long term (current) drug therapy; F17.210 Nicotine dependence, cigarettes, uncomplicated | CPT/HCPCS: 20610; 80500; 87070; 87075; 87205; 89050; 99214; J1030 ==

== ENCOUNTER → 2020-06-19 14:17 | Outpatient (BNVA) | payer BC, SELFPAY | PROVIDERS: PCP Internal Medicine; Visit Provider Obstetrics & Gynecology | DX: Z79.899 Other long term (current) drug therapy (principal); N94.10 Unspecified dyspareunia | CPT/HCPCS: 36415; 76830; 80076; 82565; 85025; 85651; 86140 ==

== ENCOUNTER → 2020-07-10 12:21 | Outpatient (BNVA) | payer BC, MEDICAID, SELFPAY | PROVIDERS: PCP Internal Medicine; Visit Provider Family Medicine | DX: J34.0 Abscess, furuncle and carbuncle of nose (principal) | CPT/HCPCS: 87070; 87205 ==

== ENCOUNTER → 2020-08-18 13:15 | Outpatient (BNVA) | payer BC, MEDICAID, SELFPAY | PROVIDERS: PCP Family Medicine; Visit Provider Obstetrics & Gynecology | DX: Z12.4 Encounter for screening for malignant neoplasm of cervix (principal) | CPT/HCPCS: 88175 ==

== ENCOUNTER → 2020-10-16 12:57 | Outpatient (BNVA) | payer BC, SELFPAY | PROVIDERS: PCP Family Medicine; Visit Provider Internal Medicine Rheumatology | DX: Z79.899 Other long term (current) drug therapy (principal); M05.79 Rheumatoid arthritis with rheumatoid factor of multiple sites without organ or systems involvement | CPT/HCPCS: 36415; 80076; 82565; 85025; 86140 ==

== ENCOUNTER → 2020-10-30 13:18 | Outpatient (BNVA) | payer BC, SELFPAY | PROVIDERS: PCP Family Medicine; Visit Provider Internal Medicine Rheumatology | DX: M05.79 Rheumatoid arthritis with rheumatoid factor of multiple sites without organ or systems involvement (principal); Z79.899 Other long term (current) drug therapy; M17.11 Unilateral primary osteoarthritis, right knee; M70.50 Other bursitis of knee, unspecified knee; Y93.9 Activity, unspecified; F17.210 Nicotine dependence, cigarettes, uncomplicated | CPT/HCPCS: 99214 ==

== ENCOUNTER → 2020-12-03 11:38 | Outpatient (BNVA) | payer BC, SELFPAY | PROVIDERS: PCP Family Medicine; Visit Provider Internal Medicine Rheumatology | DX: M05.79 Rheumatoid arthritis with rheumatoid factor of multiple sites without organ or systems involvement (principal); Z79.899 Other long term (current) drug therapy | CPT/HCPCS: 36415; 80076; 82565; 85025; 86140 ==

== ENCOUNTER → 2021-02-04 14:11 | Outpatient (BNVA) | payer BC, SELFPAY | PROVIDERS: PCP Family Medicine; Visit Provider Internal Medicine Rheumatology | DX: M05.79 Rheumatoid arthritis with rheumatoid factor of multiple sites without organ or systems involvement (principal); Z79.899 Other long term (current) drug therapy; Z79.52 Long term (current) use of systemic steroids; M17.11 Unilateral primary osteoarthritis, right knee; M70.50 Other bursitis of knee, unspecified knee; F17.210 Nicotine dependence, cigarettes, uncomplicated | CPT/HCPCS: 99214 ==

== ENCOUNTER → 2021-03-12 12:57 | Outpatient (BNVA) | payer BC, SELFPAY | PROVIDERS: PCP Family Medicine; Visit Provider Internal Medicine Rheumatology | DX: M05.79 Rheumatoid arthritis with rheumatoid factor of multiple sites without organ or systems involvement (principal); Z79.899 Other long term (current) drug therapy | CPT/HCPCS: 36415; 80076; 82565; 85025; 86140 ==

== ENCOUNTER → 2021-04-22 14:38 | Outpatient (BNVA) | payer BC, SELFPAY | PROVIDERS: PCP Family Medicine; Visit Provider Internal Medicine Rheumatology | DX: M05.79 Rheumatoid arthritis with rheumatoid factor of multiple sites without organ or systems involvement (principal); Z79.899 Other long term (current) drug therapy; Z79.52 Long term (current) use of systemic steroids; M17.11 Unilateral primary osteoarthritis, right knee; Z71.85 Encounter for immunization safety counseling; F17.210 Nicotine dependence, cigarettes, uncomplicated | CPT/HCPCS: 99214 ==

== ENCOUNTER → 2021-05-13 14:19 | Outpatient (BNVA) | payer BC, SELFPAY | PROVIDERS: PCP Family Medicine; Visit Provider Family Medicine | DX: R10.9 Unspecified abdominal pain (principal); M54.50 Low back pain, unspecified; M79.604 Pain in right leg; M77.50 Other enthesopathy of unspecified foot and ankle; F41.8 Other specified anxiety disorders; M25.571 Pain in right ankle and joints of right foot; M05.79 Rheumatoid arthritis with rheumatoid factor of multiple sites without organ or systems involvement | CPT/HCPCS: 81000 ==

== ENCOUNTER 2021-05-25 10:05 | Outpatient (RCR) | payer BC, SELFPAY | END 2021-06-12 23:59 | disposition home or self-care (01) | LOC: GPT 10:05 | PROVIDERS: PCP Family Medicine; Referring Provider Family Medicine; Visit Provider Family Medicine | DX: M54.50 Low back pain, unspecified (principal); M79.604 Pain in right leg; M77.50 Other enthesopathy of unspecified foot and ankle | CPT/HCPCS: 97110; 97162 ==

== ENCOUNTER → 2021-06-08 00:01 | Outpatient (BNVA) | payer BC, SELFPAY | PROVIDERS: PCP Family Medicine; Visit Provider Nurse Practitioner Family | DX: J06.9 Acute upper respiratory infection, unspecified (principal); Z20.822 Contact with and (suspected) exposure to COVID-19 | CPT/HCPCS: 87635 ==

== ENCOUNTER 2021-06-13 06:00 | Outpatient (RCR) | payer BC, SELFPAY | END 2021-07-13 23:59 | disposition home or self-care (01) | LOC: GPT 06:00 | PROVIDERS: PCP Family Medicine; Referring Provider Family Medicine; Visit Provider Family Medicine | DX: M54.50 Low back pain, unspecified (principal); M79.604 Pain in right leg; M77.50 Other enthesopathy of unspecified foot and ankle | CPT/HCPCS: 97110; 97140; G0283 ==

== ENCOUNTER → 2021-06-26 13:35 | Outpatient (BNVA) | payer BC, SELFPAY | PROVIDERS: PCP Family Medicine; Visit Provider Internal Medicine Rheumatology | DX: Z79.899 Other long term (current) drug therapy (principal); M05.79 Rheumatoid arthritis with rheumatoid factor of multiple sites without organ or systems involvement | CPT/HCPCS: 80076; 82565; 85025; 86140 ==

== ENCOUNTER → 2021-07-07 17:09 | Outpatient (BNVA) | payer BC, SELFPAY | PROVIDERS: PCP Family Medicine; Visit Provider Nurse Practitioner Family | DX: R09.81 Nasal congestion (principal) | CPT/HCPCS: 87635 ==

== ENCOUNTER 2021-07-14 06:00 | Outpatient (RCR) | payer BC, MEDICAID, SELFPAY | END 2021-08-10 23:59 | disposition home or self-care (01) | LOC: GPT 06:00 | PROVIDERS: PCP Family Medicine; Referring Provider Family Medicine; Visit Provider Family Medicine | DX: M54.50 Low back pain, unspecified (principal); M79.604 Pain in right leg; M77.50 Other enthesopathy of unspecified foot and ankle | CPT/HCPCS: 97110 ==

== ENCOUNTER → 2021-08-19 14:10 | Outpatient (BNVA) | payer BC, MEDICAID, SELFPAY | PROVIDERS: PCP Family Medicine; Visit Provider Internal Medicine Rheumatology | DX: M05.79 Rheumatoid arthritis with rheumatoid factor of multiple sites without organ or systems involvement (principal); M17.11 Unilateral primary osteoarthritis, right knee; Z79.899 Other long term (current) drug therapy; Z79.52 Long term (current) use of systemic steroids; Z71.85 Encounter for immunization safety counseling; R06.02 Shortness of breath | CPT/HCPCS: 82785; 86003; 99214 ==

== ENCOUNTER → 2021-09-07 13:22 | Outpatient (BNVA) | payer BC, MEDICAID, SELFPAY | PROVIDERS: PCP Family Medicine; Visit Provider Obstetrics & Gynecology | DX: Z12.4 Encounter for screening for malignant neoplasm of cervix (principal) | CPT/HCPCS: 88175 ==

== ENCOUNTER 2021-10-06 09:35 | Outpatient (CLI) | payer BC, MEDICAID, SELFPAY ==
--- NOTE | 2021-10-06 12:57 | PFTS_ITS ---
Date of Study:10/06/21 Date of Dictation: 10/08/2021 MECHANICS: Postbronchodilator forced vital capacity (FVC) is normal. Prebronchodilator FEV1 is moderately reduced which normalized post bronchodilation FEV1/FVC is reduced. There is significant response to bronchodilators FLOW VOLUME LOOP: Expiratory limb suggestive of airway obstruction . LUNG VOLUMES: Total lung capacity (TLC) is normal . Residual volume (RV) is increased. DIFFUSING CAPACITY FOR CARBON MONOXIDE:normal . INTERPRETATION: The spirometry is suggestive of moderate obstruction normalizing with bronchodilation There is significant response to bronchodilators. Lung volumes suggestive of air trapping Normal gas transfer. Constellation of findings suggestive of reversible obstructive airway disease like asthma. correlate clinically MTDD
== END 2021-10-06 09:36 | disposition home or self-care (01) ==
LOC: RT 09:36
PROVIDERS: PCP Family Medicine; Visit Provider Internal Medicine Critical Care Medicine
DX: J45.50 Severe persistent asthma, uncomplicated (principal)
CPT/HCPCS: 94060; 94726; 94729; J7611

== ENCOUNTER → 2021-12-24 14:29 | Outpatient (BNVA) | payer BC, MEDICAID, SELFPAY | PROVIDERS: PCP Family Medicine; Visit Provider Internal Medicine Rheumatology | DX: M05.79 Rheumatoid arthritis with rheumatoid factor of multiple sites without organ or systems involvement (principal); Z79.899 Other long term (current) drug therapy; Z79.52 Long term (current) use of systemic steroids; Z71.85 Encounter for immunization safety counseling | CPT/HCPCS: 36415; 80076; 82306; 82565; 84439; 84443; 85025; 86140; 99214 ==

== ENCOUNTER 2022-02-11 08:18 | Emergency (ER) | payer BC, MEDICAID, SELFPAY ==
[2022-02-11] VITALS (11 sets, daily range): BP systolic 98–121; BP diastolic 67–94; PULSE 113–137; RESP 12–24; TEMP 37.4–38.6; O2SAT 93–100; BMI 24.3
--- NOTE | 2022-02-11 08:21 | W.ED.GENADLT ---
HPI - General Adult General: Chief complaint: Nausea/Vomiting/Diarrhea Stated complaint: N/V/Headache Time Seen by Provider: 02/11/22 08:20 History of Present Illness: Ms. Gaston is a 26-year-old lady with complex past medical history including rheumatoid arthritis on immunomodulation presenting to the emergency department with generalized illness. She reports sudden onset of symptoms last night with multiple episodes of nausea, vomiting, headache, and intermittent abdominal discomfort. Emesis is nonbilious and nonbloody. She has had fevers at home as well. Overall course of symptoms has persisted. Intensity is moderate. Denies shortness of breath above baseline asthma and denies chest pain. No other specific changes in health, exacerbating, or alleviating factors identified. Onset (ago): hour(s) Severity: moderate Pain Consistency: constant Relieving factors: none Exacerbating factors: movement Associated symptoms: Reports headache(s), malaise, nausea and vomiting Review of Systems General: Reports: 10 or more systems reviewed and unremarkable except in HPI and below Const: Reports: malaise GI: Reports: nausea and vomiting Neuro: Reports: headache(s) PFSH ED PFSH: Medical History Anxiety with depression Diagnosed in 2016 and has been on citalopram managed by PMD. Does not have a psychiatrist/therapist Asthma Diagnosed as a child. It is usually with as needed albuterol, Advair --managed by economics instructor Dr. Moya [place] [facility] [place] High risk medication use No pertinent past medical history Denies diabetes, hypertension, seizures, DVT/PE PMD: Dr. Evans Osteoarthritis of right knee Seropositive rheumatoid arthritis of multiple sites Surgical History H/O section X 2 06/22/2017---primary low transverse delivery by Dr. Muñoz [place] [facility] [place] with breech presentation. ---->single layer closure with no extensions. 02/25/2020--> repeat delivery with total salpingectomy for twin gestation by Dr. muñoz at [facility] [place] H/O lumpectomy (~2010) Left breast-- benign Status post tubal ligation 02/25/2020----total salpingectomy at time of second performed by Dr. Muñoz at [facility] [place]. Pathology showed benign pathology of both tubes Family History Grandmother Family history of thyroid problem Maternal grandmother Heart disease Maternal grandmother Diabetes Maternal grandmother Grandfather Stroke Maternal granfather Heart disease Maternal grandfather Denies family history of Colon cancer Ovarian cancer Hyperlipidemia Breast cancer Hypertension Uterine cancer Social History Smoking and tobacco status: never smoked Female Reproductive History: Date of last menstrual period: 06/02/19 Physical Exam Const: COMMON NORMALS: alert GENERAL APPEARANCE: cooperative, well developed and ill appearing HENMT: COMMON NORMALS: normocephalic and atraumatic HEAD & SCALP: normocephalic and atraumatic THROAT: posterior oropharynx normal Eye: COMMON NORMALS: conjunctivae normal CONJUNCTIVA: Yes conjunctivae normal SCLERA: sclerae normal Neck/C-Spine: COMMON NORMALS: supple GENERAL: Yes trachea midline Resp: EFFORT & INSPECTION: Yes able to speak in complete sentences AUSCULTATION: wheezes Cardio: COMMON NORMALS: regular rhythm RATE: tachycardic RHYTHM: regular rhythm GI: COMMON NORMALS: Soft to palpation PALPATION: Yes Soft to palpation, Yes Tenderness to palpation present (GI), Yes Guarding due to palpation present (GI) and No Rigid due to palpation PERCUSSION: normal to percussion Extremity: GENERAL: Yes normal exam except as noted and No edema Neuro: COMMON NORMALS: moves all extremities SENSORIUM/ORIENTATION: Yes alert and No Orientation impaired Psych: COMMON NORMALS: mental status grossly normal and Normal thought process present THOUGHT PROCESS: Normal thought process present Course ED course: - Patient was seen and evaluated by me at bedside - Patient placed on cardiac monitors, IV access obtained - Initial evaluation notable for exam as above. No focal neurodeficits. Somewhat ill-appearing. - Labs and xrays personally interpreted by me - Fluids, analgesia, and antiemetic given. RT treatment ordered. - Labs notable for no leukocytosis, normal hemoglobin. Metabolic panel with mild hypokalemia. Negative hCG. No UTI. COVID-negative. - Imaging notable for no lobar consolidation or pneumothorax. Given symptoms as well as tachycardia in the context of baseline high risk medication use I feel that CT is needed. Discussed with patient. No focal inflammatory findings, free fluid in the pelvis slightly more than physiologic probably related right ruptured ovarian cyst. - Upon serial reexamination after treatment the patient was improved - Based on patient history, evaluation, and testing as interpreted the most likely cause of the patient's condition is unclear, some pain may be related to ruptured right ovarian cyst and remainder of symptoms may be viral. - The results of ED evaluation were discussed with the patient including prescriptions and/or symptomatic cares (if applicable) including appropriate and responsible use, followup plan, and return precautions. The patient verbalized understanding and felt safe for discharge. - Patient discharged in satisfactory condition. Note: Click bubbles or prepopulated sapp in note writing are used for assistance with data collection and billing and are inherently more limited than narrative and other text portions of this note. Please use narrative for additional clinical history and defer to narrative/free test for any case of contradictory information. If information appears in only free text or click bubble it should be considered present or absent as reported. Please contact note radio script writer for clarifications of clinical information or contradictory information. MDM is a brief summary, contradictory or erroneous seeming information should be clarified and full note should be reviewed. Vital Signs: Vital signs: Vital Signs Temperature 101.5 F H 02/11/22 14:21 Pulse Rate 124 H 02/11/22 14:21 Respiratory Rate 18 02/11/22 14:21 Blood Pressure 116/94 02/11/22 14:21 Pulse Oximetry 94 02/11/22 14:21 Oxygen Delivery Me thod 02/11/22 14:21 MDM - General Adult Medical Decision Making 27-year-old lady with history of high risk medication use due to recent arthritis presenting with sudden onset of generalized illness. No clear etiology identified on ED evaluation. Improved with treatment. Satisfactory for outpatient management with strict return precautions given. Medical Records I reviewed the patient's medical records. Lab Data I reviewed the patient's lab results. : 02/11/22 09:02 02/11/22 09:02 Radiology Impressions Chest X-Ray 02/11/22 09:18 IMPRESSION: Unremarkable chest radiograph. Abdomen/Pelvis CT 02/11/22 11:38 IMPRESSION: 1. Normal appendix. 2. No GI tract obstruction. 3. Free fluid in the pelvis is slightly more than physiologic. Probably related to a ruptured RIGHT ovarian cyst. Laboratory Results WBC 9.9 10^3/uL (4.0-10.0) 02/11/22 09:02 RBC 4.78 10^6/uL (4.1-5.3) 02/11/22 09:02 Hgb 14.5 g/dL (11.5-15.3) 02/11/22 09:02 Hct 44.5 % (37.0-47.0) 02/11/22 09:02 MCV 93.1 fl (81-99) 02/11/22 09:02 MCH 30.3 pg (28.0-34.0) 02/11/22 09:02 MCHC 32.6 g/dL (30.0-36.0) 02/11/22 09:02 RDW 13.0 % (12.1-15.1) 02/11/22 09:02 Plt Count 310 10^3/cmm (130-400) 02/11/22 09:02 MPV 10.4 fL (7.4-10.4) 02/11/22 09:02 Neut % (Auto) 83.9 % 02/11/22 09:02 Lymph % (Auto) 11.1 % 02/11/22 09:02 [place] % (Auto) 4.0 % 02/11/22 09:02 Eos % (Auto) 0.4 % 02/11/22 09:02 Baso % (Auto) 0.4 % 02/11/22 09:02 Neut # (Auto) 8.30 10^3/uL (1.8-7.7) H 02/11/22 09:02 Lymph # (Auto) 1.1 10^3/uL (0.8-4.8) 02/11/22 09:02 [place] # (Auto) 0.4 10^3/uL (0.2-0.9) 02/11/22 09:02 Eos # (Auto) 0.0 10^3/uL (0.0-0.8) 02/11/22 09:02 Baso # (Auto) 0.0 10^3/uL (0.0-0.1) 02/11/22 09:02 Nucleated RBC % (auto) 0 % 02/11/22 09:02 Nucleated RBCs # 0.0 /100WBC 02/11/22 09:02 Sodium 136 mmol/L (136-145) 02/11/22 09:02 Potassium 3.4 mmol/L (3.5-5.1) L 02/11/22 09:02 Chloride 100 mmol/L (98-107) 02/11/22 09:02 Carbon Dioxide 25 mmol/L (22-29) 02/11/22 09:02 Anion Gap 14.4 (5-19) 02/11/22 09:02 BUN 8 mg/dL (6-20) 02/11/22 09:02 Creatinine 0.7 mg/dL (0.5-0.9) 02/11/22 09:02 GFR Calculation 100.4 mL/min (90-130) 02/11/22 09:02 Glucose 83 mg/dL (65-115) 02/11/22 09:02 Calculated Osmolality 279 mOsm/kg (285-295) L 02/11/22 09:02 Lactate 1.0 mmol/L (0.5-2.2) 02/11/22 09:02 Calcium 8.8 mg/dL (8.5-10.5) 02/11/22 09:02 Total Bilirubin 0.7 mg/dL (0.15-1.2) 02/11/22 09:02 AST 26 U/L (0-32) 02/11/22 09:02 ALT 19 U/L (0-33) 02/11/22 09:02 Alkaline Phosphatase 104 U/L (35-105) 02/11/22 09:02 C-Reactive Protein 40.6 mg/L (0.0-4.9) H 02/11/22 09:02 Total Protein 7.1 g/dL (6.6-8.7) 02/11/22 09:02 Albumin 4.3 g/dL (3.5-5.2) 02/11/22 09:02 Globulin 2.8 g/dL (1.3-4.6) 02/11/22 09:02 Lipase 18 U/L (13-60) 02/11/22 09:02 Procalcitonin 0.15 ng/mL (0-0.5) 02/11/22 09:02 HCG, Qual Negative (Negative) 02/11/22 08:45 Urine Color Yellow (Yellow) 02/11/22 08:45 Urine Appearance Clear (CLEAR) 02/11/22 08:45 Urine pH 7 (5-7) 02/11/22 08:45 Ur Specific [place] 1.010 (1.005-1.030) 02/11/22 08:45 Urine Protein Trace (Negative) 02/11/22 08:45 Urine Glucose (UA) Norm (Normal) 02/11/22 08:45 Urine Ketones Negative (Negative) 02/11/22 08:45 Urine Blood Neg (Negative) 02/11/22 08:45 Urine Nitrate Negative (Negative) 02/11/22 08:45 Urine Bilirubin 1+ (Negative) H 02/11/22 08:45 Urine Urobilinogen Norm mg/dL (Negative) 02/11/22 08:45 Ur Leukocyte Esterase Trace (Negative) H 02/11/22 08:45 Urine RBC 0-4 /hpf (0-2) H 02/11/22 08:45 Urine WBC 0-4 /hpf (0-5) H 02/11/22 08:45 Ur Squamous Epith Cells 10-15 /hpf (0-5) H 02/11/22 08:45 Amorphous Sediment Not Reportable 02/11/22 08:45 Urine Bacteria Trace /hpf (NONE) 02/11/22 08:45 Nasal Influ A H1 2008 PCR Not detected (NOT DETECT) 02/11/22 09:14 Adenovirus (PCR) Not detected (NOT DETECT) 02/11/22 09:14 C. pneumoniae DNA (PCR) Not detected (NOT DETECT) 02/11/22 09:14 Coronavirus 229E (PCR) Not detected (NOT DETECT) 02/11/22 09:14 Human Metapneumovir PCR Not detected (NOT DETECT) 02/11/22 09:14 Influenza A (H1) PCR Not detected (NOT DETECT) 02/11/22 09:14 Influenza A (H3) PCR Not detected (NOT DETECT) 02/11/22 09:14 Influenza Type A (PCR) Not detected (NOT DETECT) 02/11/22 09:14 Influenza Type B (PCR) Not detected (NOT DETECT) 02/11/22 09:14 M. pneumoniae (PCR) Not detected (NOT DETECT) 02/11/22 09:14 Parainfluenza 1 (PCR) Not detected (NOT DETECT) 02/11/22 09:14 Parainfluenza 2 (PCR) Not detected (NOT DETECT) 02/11/22 09:14 Parainfluenza 3 (PCR) Not detected (NOT DETECT) 02/11/22 09:14 Parainfluenza 4 (PCR) Not detected (NOT DETECT) 02/11/22 09:14 RSV Type A (PCR) Not detected (NOT DETECT) 02/11/22 09:14 RSV Type B (PCR) Not detected (NOT DETECT) 02/11/22 09:14 Entero/Rhino (PCR) Not detected (NOT DETECT) 02/11/22 09:14 SARS-CoV-2 (PCR) Not detected (NOT DETECT) 02/11/22 09:14 Discharge Plan Discharge Patient Disposition: Home Clinical Impression: Acute febrile illness, Nausea & vomiting, Headache, Abdominal pain, Dehydration Condition: Stable Prescriptions: New ondansetron 4 mg tablet,disintegrating 4 mg PO Q8H PRN (Reason: nausea and vomiting) Qty: 15 0RF No Action fluticasone propion-salmeterol [Advair Diskus] 250-50 mcg/dose blister with device 1 inh inhalation BID 90 Days Qty: 180 2RF Spiriva with HandiHaler 18 mcg capsule, w/inhalation device 1 cap inhalation DAILY 30 Days Qty: 60 3RF Rx Instructions: puncture 1 cap using device; one dose = 2 inhalations leflunomide 20 mg tablet 20 mg PO DAILY Qty: 90 1RF pantoprazole 40 mg tablet,delayed release (DR/EC) 40 mg PO DAILY Qty: 90 1RF prednisone 5 mg tablet 5 mg PO DAILY Qty: 90 1RF sulfasalazine 500 mg tablet 0.5 g PO BID Qty: 180 1RF Rx Instructions: give with food (meal/snack) Xeljanz 5 mg tablet 5 mg PO BID Qty: 60 3RF albuterol sulfate [ProAir HFA] 90 mcg/actuation HFA aerosol inhaler 2 puff INHALATION Q6H PRN (Reason: shortness of breath or wheezing) Qty: 8 6RF citalopram 10 mg tablet 10 mg PO DAILY Qty: 30 5RF Advil 200 mg Tablet 200 mg PO Q6H PRN (Reason: Pain) Discharge Orders: Discharge ED (Routine); Ordered 02/11/22 Ordered By: Wade Peoples Referrals: Daniel Evans, [Primary Care Provider] - Discharge Diet: Advance as tolerated and Clear Liquid Discharge Activity: Increase activity as tolerated Patient Instructions: Acute Nausea and Vomiting (ED), Acute Abdominal Pain (ED), Abdominal Pain (ED), Opioid Safety Activity Restrictions/Additional Instructions: Thank you for visiting the emergency department. You were seen and evaluated for headache with nausea and vomiting. The exact cause of your symptoms is unclear though may be related to viral syndrome. Please follow-up with your primary care provider. Please return to the emergency department for worsening symptoms, any new neurologic symptoms, inability to tolerate oral intake, or anything else that you are concerned about and feel needs emergency department evaluation. Coding Level of Care Code ED Brass Cleaner for Barb Blancas
[2022-02-11] MEDS: ondansetron 2 mg/ML SDV 2 mL 4 MG IVP (08:54)
[2022-02-11] MEDS: morphine 4 mg/mL SDV 1 mL IVP (08:56)
--- NOTE | 2022-02-11 08:56 | ECG_ITS ---
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 Measurements Intervals [place] Rate: 130 P: 65 TN: 129 QRS: 65 QRSD: 78 T: 58 QT: 288 QTc: 424 Interpretive Statements SINUS TACHYCARDIA MINIMAL ST DEPRESSION [0.025+ mV ST DEPRESSION] ABNORMAL RHYTHM ECG No previous ECG available for comparison Electronically Signed On 02-12-2022 15:34:58 CDT by Gt Munoz M.D. [email or web address]
[2022-02-11 09:07] LABS: HCG Qualitative Urine. Negative (Negative)
[2022-02-11 09:18] LABS: Basophils % 0.4 %; Eosinophils % 0.4 %; Hematocrit 44.5 % (37.0-47.0); Hemoglobin 14.5 g/dL (11.5-15.3); Lymphocytes # 1.1 10^3/uL (0.8-4.8); Lymphocytes % 11.1 %; Mean Corpuscular HGB Conc 32.6 g/dL (30.0-36.0); Mean Corpuscular Hemoglobin 30.3 pg (28.0-34.0); Mean Corpuscular Volume 93.1 fl (81-99); Mean Platelet Volume 10.4 fL (7.4-10.4); Monocytes # 0.4 10^3/uL (0.2-0.9); Neutrophils % 83.9 %; Nucleated Red Blood Cells % 0 %; Platelet Count 310 10^3/cmm (130-400); Red Blood Count 4.78 10^6/uL (4.1-5.3); White Blood Count 9.9 10^3/uL (4.0-10.0)
--- NOTE | 2022-02-11 09:18 | XR_ITS ---
WS: [id number] Exam: XR chest 1V portable [id number] Date/Time of Exam: 02/11/2022 9:21 AM Reason For Exam: wheezing Comparison 08/19/2021. Findings: The lungs are clear and fully expanded. Costophrenic angles are sharp. No infiltrates. Bronchovascula r relief appears normal. Cardiac silhouette is unremarkable. Bony elements are intact. XR/XR chest 1V portable [id number] IMPRESSION: Unremarkable chest radiograph.
[2022-02-11 09:53] LABS: Alanine Aminotransferase 19 U/L (0-33); Albumin Level 4.3 g/dL (3.5-5.2); Alkaline Phosphatase 104 U/L (35-105); Aspartate Amino Transferase 26 U/L (0-32); Blood Urea Nitrogen 8 mg/dL (6-20); C Reactive Protein 40.6 mg/L (0.0-4.9); Calcium 8.8 mg/dL (8.5-10.5); Carbon Dioxide 25 mmol/L (22-29); Chloride 100 mmol/L (98-107); Globulin 2.8 g/dL (1.3-4.6); Glomerular Filtration Rate 100.4 mL/min (90-130); Glucose 83 mg/dL (65-115); Lipase 18 U/L (13-60); Osmolality Calculated 279 mOsm/kg (285-295); Sodium 136 mmol/L (136-145); Total Bilirubin 0.7 mg/dL (0.15-1.2); Total Protein 7.1 g/dL (6.6-8.7)
[2022-02-11 09:54] LABS: Anion Gap 14.4 (5-19); Potassium 3.4 mmol/L (3.5-5.1)
[2022-02-11 09:58] LABS: Procalcitonin 0.15 ng/mL (0-0.5)
[2022-02-11] MEDS: ipratropium-albuterol 3 mL Neb INHALATION (10:02)
[2022-02-11 10:23] LABS: Add Urine Microscopic? YES; Bilirubin Urine 1+ (Negative); Blood Urine Neg (Negative); Glucose Urine UA Norm (Normal); Ketones Urine Negative (Negative); Leukocyte Esterase Urine Trace (Negative); Nitrate Urine Negative (Negative); Protein Urine Trace (Negative); Urine Appearance Clear (CLEAR); Urine Color Yellow (Yellow); Urobilinogen Urine Norm (Negative); pH Urine 7 (5-7)
[2022-02-11 10:24] LABS: Add Urine Culture? No; Bacteria Urine TRACE /hpf; RBC Urine 0-4 /hpf (0-2); WBC Urine 0-4 /hpf (0-5)
[2022-02-11 11:10] LABS: Adenovirus Not Detected (NOT DETECT); Chlamydia Pneumoniae Not Detected (NOT DETECT); Coronavirus 229E,HKU1,NL63,OC4 Not Detected (NOT DETECT); Human Metapneumovirus Not Detected (NOT DETECT); Human Rhinovirus/Enterovirus Not Detected (NOT DETECT); Influenza A Not Detected (NOT DETECT); Influenza A H1 Not Detected (NOT DETECT); Influenza A H1-2009 Not Detected (NOT DETECT); Influenza A H3 Not Detected (NOT DETECT); Influenza B Not Detected (NOT DETECT); Mycoplasma Pneumoniae Not Detected (NOT DETECT); Parainfluenza Virus Type 1 Not Detected (NOT DETECT); Parainfluenza Virus Type 2 Not Detected (NOT DETECT); Parainfluenza Virus Type 3 Not Detected (NOT DETECT); Parainfluenza Virus Type 4 Not Detected (NOT DETECT); Respiratory Syncytial Virus A Not Detected (NOT DETECT); Respiratory Syncytial Virus B Not Detected (NOT DETECT); SARS-COV-2 Not Detected (NOT DETECT)
--- NOTE | 2022-02-11 11:38 | CT_ITS ---
WS: [id number] CT ABDOMEN AND PELVIS WITH CONTRAST HISTORY: abd pain, mid to epigastric, n/v TECHNIQUE: Imaging performed of the abdomen and pelvis with IV contrast. Single phase imaging of the abdomen. Coronal and sagittal reformats are submitted. All CT scans at [facility] use at [facility] one of these dose optimization techniques: automated exposure control; mA and/or kV adjustment per patient size (includes targeted exams where dose is matched to clinical indication); or iterative re construction. IV CONTRAST: Omnipaque 350; 80 mL IV. Oral contrast: No DLP: 492.57 mGy.cm COMPARISON: None available. Lower thorax: Lung bases are clear. Heart is normal size. No hiatal hernia. Liver/biliary system: Normal size with no intrahepatic dilatation. Gallbladder: Normal. No gallstones or wall thickening. No pericholecystic fluid. Pancreas: Normal size pancreas and pancreatic duct. No adjacent inflammation. Spleen: Normal size spleen. No mass or infarct. Adrenal glands: Normal. Right kidney: Normal. Left kidney: Normal. Aorta: Normal. Lymphadenopathy: None. Free fluid: There is a small amount of free fluid in the cul-de-sac. Slightly more than physiologic. GI tract: Stomach and small bowel are negative. Mild fecal retention throughout the colon. The append ix is normal. No obstruction. Abdominal wall: Unremarkable abdominal wall. No hernia. Pelvis: Small amount of free fluid in the pelvis. Uterus is midline and normal size. Bones: Unremarkable. CT/CT abdomen pelvis w con* [id number] IMPRESSION: 1. Normal appendix. 2. No GI tract obstruction. 3. Free fluid in the pelvis is slightly more than physiologic. Probably relate d to a ruptured RIGHT ovarian cyst.
[2022-02-11] MEDS: metoclopramide 5 mg/mL SDV 2 mL 10 MG IVP (11:51)
[2022-02-11] MEDS: diphenhydrAMINE 50 mg/mL SDV 1mL 25 MG IVP (11:52)
[2022-02-11] MEDS: iohexol 350 mg/mL 100 mL Btl IV (12:03)
[2022-02-11] MEDS: acetaminophen 500 mg Tablet 1000 MG PO (14:38)
== END 2022-02-11 14:51 | disposition home or self-care (01) ==
PROVIDERS: Emergency Provider Emergency Medicine; PCP Family Medicine
DX: R11.2 Nausea with vomiting, unspecified (principal); R51.9 Headache, unspecified; R10.9 Unspecified abdominal pain; E86.0 Dehydration; R50.9 Fever, unspecified; Z20.822 Contact with and (suspected) exposure to COVID-19
CPT/HCPCS: 36415; 71045; 74177; 80053; 81001; 81025; 83605; 83690; 84145; 85025; 86140; 87040; 87486; 87581; 87633; 93005; 94640; 96365; 96375; 99285; J1200; J2270; J2405; J2765; J3475; Q9967

== ENCOUNTER → 2022-03-04 13:56 | Outpatient (BNVA) | payer BC, MEDICAID, SELFPAY | PROVIDERS: PCP Family Medicine; Visit Provider Nurse Practitioner Family | DX: R30.0 Dysuria (principal) | CPT/HCPCS: 81003; 87077; 87086; 87184 ==

== ENCOUNTER 2022-04-30 12:02 | Outpatient (CLI) | payer BC, MEDICAID, SELFPAY ==
[2022-04-30 12:33] LABS: Basophils % 0.5 %; Eosinophils # 0.1 10^3/uL (0.0-0.8); Eosinophils % 1.3 %; Hematocrit 41.1 % (37.0-47.0); Hemoglobin 13.1 g/dL (11.5-15.3); Lymphocytes # 1.9 10^3/uL (0.8-4.8); Mean Corpuscular HGB Conc 31.9 g/dL (30.0-36.0); Mean Corpuscular Hemoglobin 30.6 pg (28.0-34.0); Mean Platelet Volume 9.7 fL (7.4-10.4); Monocytes # 0.9 10^3/uL (0.2-0.9); Monocytes % 10.5 %; Neutrophils % 64.2 %; Nucleated Red Blood Cells % 0 %; Platelet Count 420 10^3/cmm (130-400); Red Blood Count 4.28 10^6/uL (4.1-5.3); Red Cell Distribution Width 13.2 % (12.1-15.1); White Blood Count 8.3 10^3/uL (4.0-10.0)
[2022-04-30 12:56] LABS: Alanine Aminotransferase 17 U/L (0-33); Albumin Level 4.3 g/dL (3.5-5.2); Alkaline Phosphatase 87 U/L (35-105); Globulin 2.6 g/dL (1.3-4.6); Total Bilirubin 0.4 mg/dL (0.15-1.2); Total Protein 6.9 g/dL (6.6-8.7)
[2022-04-30 13:23] LABS: Aspartate Amino Transferase 19 U/L (0-32)
== END 2022-04-30 12:03 | disposition home or self-care (01) ==
LOC: LAB 12:05
PROVIDERS: PCP Family Medicine; Visit Provider Internal Medicine Rheumatology
DX: M05.79 Rheumatoid arthritis with rheumatoid factor of multiple sites without organ or systems involvement (principal); Z79.899 Other long term (current) drug therapy
CPT/HCPCS: 36415; 80076; 82565; 85025

== ENCOUNTER → 2022-05-11 08:47 | Outpatient (BNVA) | payer BC, MEDICAID, SELFPAY | PROVIDERS: PCP Family Medicine; Visit Provider Internal Medicine Rheumatology | DX: M19.072 Primary osteoarthritis, left ankle and foot (principal); M25.572 Pain in left ankle and joints of left foot | CPT/HCPCS: 73610 ==

== ENCOUNTER → 2022-05-12 10:28 | Outpatient (BNVA) | payer BC, MEDICAID, SELFPAY | PROVIDERS: PCP Family Medicine; Visit Provider Nurse Practitioner Family | DX: R50.9 Fever, unspecified (principal); J10.1 Influenza due to other identified influenza virus with other respiratory manifestations | CPT/HCPCS: 87400 ==

== ENCOUNTER 2022-06-02 07:05 | Outpatient (CLI) | payer BC, MEDICAID, SELFPAY ==
--- NOTE | 2022-06-02 07:15 | US_ITS ---
WS: [id number] ULTRASOUND BILATERAL BREAST HISTORY: N64.4 - Mastodynia COMPARISON: None available. TECHNIQUE: 2-D and Doppler. Mass described on the prior ultrasound from 2011 was surgically removed. There is a ovoid hypoechoic mass in the LEFT breast at 12:00, 3 cm from the nipple. This mass measures 10 x 10 x 4 mm. Very benig n in appearance and may be a small residual fibroadenoma or lymph node. This is not palpable. Otherwise ultrasound of each breast is negative. US/US breast BI limited* [id number] IMPRESSION: BI-RADS: 3-Probably Benign FOLLOW-UP: 6 Month Follow-up Recommend 6 month limited LEFT breast ultrasound follow-up. Benign appearing ma ss at 12:00. Favor fibroadenoma versus lymph node.
== END 2022-06-02 07:06 | disposition home or self-care (01) ==
LOC: RAD 07:06
PROVIDERS: PCP Family Medicine; Visit Provider Nurse Practitioner Family
DX: N64.4 Mastodynia (principal); Z87.898 Personal history of other specified conditions
CPT/HCPCS: 76642

== ENCOUNTER → 2022-06-15 14:45 | Outpatient (BNVA) | payer BC, MEDICAID, SELFPAY | PROVIDERS: PCP Family Medicine; Visit Provider Podiatrist Foot & Ankle Surgery | DX: M05.79 Rheumatoid arthritis with rheumatoid factor of multiple sites without organ or systems involvement (principal); M19.272 Secondary osteoarthritis, left ankle and foot | CPT/HCPCS: 73630 ==

== ENCOUNTER 2022-06-17 05:55 | Day surgery (SDC) | payer BC, MEDICAID, SELFPAY ==
[2022-06-16 13:10] VITALS: BMI 24.2
[2022-06-17] VITALS (13 sets, daily range): BP systolic 101–119; BP diastolic 68–85; PULSE 73–94; RESP 16–18; TEMP 36.1; O2SAT 93–100
--- NOTE | 2022-06-17 | XR_ITS ---
WS: [id number] Left foot, C-arm fluoroscopy views, 06/17/2022 Clinical Data: LEFT FOOT SURGERY/ TALONAVICULAR JOINT ARTHRODESIS CPT 02312 Comparison: Left foot, 06/15/2022 Findings: There is osteoarthritis of the talonavicular joint XR/XR foot LT 2V [id number] Impression: Osteoarthritis of the talonavicular joint.
[2022-06-17] MEDS: sodium chloride 0.9% 1,000 ML 30 ML IV (06:21)
[2022-06-17 06:40] LABS: OR HCG Qualitative Urine Negative (Negative)
--- NOTE | 2022-06-17 06:53 | P.HPUD_ITS ---
Surgery/Procedure H&P Update DATE OF PROCEDURE: June 17, 2022 DATE H&P PERFORMED: 05/21/22 CHANGES TO PREVIOUS DOCUMENTATION: No changes PREOP DIAGNOSIS: Left foot talonavicular joint arthritis PLANNED PROCEDURE: Operation Date: 06/17/22 07:00 Proposed Procedures p Left foot talonavicular joint arthrodesis [facility] 74065/M05.772(Left) - Osbaldo Ramon DPM
[2022-06-17] MEDS: ceFAZolin 2,000 MG in sodium chloride 0.9% (plus) 50 ML 100 MG IV (07:00)
--- NOTE | 2022-06-17 08:56 | P.ANESASSM_ITS ---
Pre-Anesthetic Assessment Height/Weight: Height 1.68 m Weight 68.039 kg Temp Pulse Resp BP Pulse Ox O2 Del Method 97 F L 94 18 117/79 96 06/17/22 06:12 06/17/22 06:12 06/17/22 06:12 06/17/22 06:12 06/17/22 06:12 06/17/22 06:12 Preop Diagnosis: Left foot talonavicular joint arthritis Operation Date: 06/17/22 07:00 Proposed Procedures p Left foot talonavicular joint arthrodesis CPT 71440/M05.772(Left) - Osbaldo Ramon DPM Familial anesthetic complications: none Was Beta René taken within 24 hours: N/A Was Clonidine taken within 24 hours: N/A Last intake: Intake Last Liquid Date 06/16/22 Last Liquid Time 21:00 Last Solid Date 06/16/22 Last Solid Time 21:00 Social No alcohol and No tobacco Exam alert, oriented x 3, clear to auscultation bilaterally and regular rate & rhythm Airway Submandibular: within normal limits Cervical ROM: within normal limits Mallampati: Class II Dentition: full Pulmonary Asthma GI Gastroesophageal Reflux Disease Metabolic chronic steroid Musc/skel Rheumatoid Arthritis Neuropsych Anxiety and Depression Anesthetic Plan ASA status: 3 Anesthesia: General and Regional (specify below) (left pop blk) Medications/Allergies Home Medications Medication Instructions Recorded Confirmed Last Taken Type fluticasone 250 mcg-salmeterol 50 1 inh inhalation BID 90 days #180 09/23/21 06/16/22 06/16/22 Rx mcg/dose blistr powdr for ea inhalation (Advair Diskus) tiotropium bromide 18 mcg capsule 1 cap inhalation DAILY 30 days #60 09/23/21 06/16/22 06/16/22 Rx with inhalation device (Spiriva inhalations with HandiHaler) ondansetron 4 mg disintegrating 4 mg PO Q8H PRN nausea and 02/11/22 06/16/22 Unknown Rx tablet vomiting #15 tabs citalopram 20 mg tablet 20 mg PO DAILY #90 tabs 03/23/22 06/16/22 06/16/22 Rx medical marijauna 1 pill PO QID PRN Pain 03/23/22 06/17/22 06/16/22 History leflunomide 20 mg tablet 20 mg PO DAILY #90 tabs 05/10/22 06/16/22 06/16/22 Rx pantoprazole 40 mg tablet,delayed 40 mg PO DAILY Chronic steroid #90 05/10/22 06/17/22 06/16/22 Rx release tabs prednisone 5 mg tablet 5 mg PO DAILY #90 tabs 05/10/22 06/16/22 06/16/22 Rx sulfasalazine 500 mg tablet See Rx Instructions PO BID #360 05/10/22 06/16/22 06/16/22 Rx tabs tofacitinib 5 mg tablet (Xeljanz) 5 mg PO BID #60 tabs 05/10/22 06/16/22 Unknown Rx DME: Walker #1 ea 06/15/22 06/15/22 Unknown Rx albuterol sulfate 90 mcg/actuation 2 puff inhalation Q6H PRN 06/16/22 06/17/22 06/17/22 04:10 History aerosol inhaler (ProAir HFA) Shortness Of Breath tramadol 50 mg tablet 50 mg PO Q6H PRN pain 7 days #28 06/17/22 Unknown Rx tabs Allergies Allergy/AdvReac Type Severity Reaction Status Date / Time morphine Allergy Intermediate ADR-Chest Verified 06/17/22 06:17 Pain hydrocodone Allergy Mild nausea Verified 06/17/22 06:17 Current Medications Generic Name Dose Route Start Last Admin Trade Name Freq PRN Reason Stop Dose Admin Sodium Chloride 1,000 mls @ 30 mls/hr 06/17/22 06:15 06/17/22 06:21 Sodium Chloride 0.9% IV 06/18/22 06:14 30 mls/hr .Q24H VIKTOR Administration PFSH Anesthesia Medical History Anxiety with depression Diagnosed in 2016 and has been on citalopram managed by PMD. Does not have a psychiatrist/therapist Asthma Diagnosed as a child. It is usually with as needed albuterol, Advair --managed by director medical Dr. Moya at [facility] [place] High risk medication use No pertinent past medical history Denies diabetes, hypertension, seizures, DVT/PE PMD: Dr. Evans Osteoarthritis of right knee Seropositive rheumatoid arthritis of multiple sites Surgical History H/O section X 2 06/22/2017---primary low transverse delivery by Dr. Muñoz at [facility] for PROM with breech presentation. ---->single layer closure with no extensions. 02/25/2020--> repeat delivery with total salpingectomy for twin gestation by Dr. muñoz at [facility] [place] H/O lumpectomy (~2010) Left breast-- benign Status post tubal ligation 02/25/2020----total salpingectomy at time of second performed by Dr. Muñoz at [facility] [place]. Pathology showed benign pathology of both tubes Family History Grandmother Family history of thyroid problem Maternal grandmother Heart disease Maternal grandmother Diabetes Maternal grandmother Grandfather Stroke Maternal granfather Heart disease Maternal grandfather Denies family history of Colon cancer Ovarian cancer Hyperlipidemia Breast cancer Hypertension Uterine cancer Social History Smoking and tobacco status: current every day smoker cigarettes Packs smoked per day: 1 Years cigarettes smoked: 9 [ Other cigarette details: Started at age 17] Female Reproductive History Date of last menstrual period: 06/12/22 Data Anesthesia Cardiac Studies: No Data to Display Anesthesia Procedures Nerve Block Nerve Block 1: Main Anesthesia: general anesthesia Time Out Performed: Yes Consent: requested by attending/covering physician, from patient, risks and benefits reviewed and patient agrees to proceed Nerve block location: popliteal (left) Anesthesia monitors applied: pulse oximetry, EKG, BP cuff and oxygen Nerve block position: supine Anesthetic Used: ropivicaine 0.5% Amount of anesthesia used (mL): 30 Ultrasound used to: recognize landmarks Nerve Stimulator Used?: No Interscalene/Femoral BLK: 4 stimuplex 21 g needle used for position and inplane approach Injection: neg aspiration of heme Patient Tolerated Procedure: well Complications: none
[2022-06-17] MEDS: fentaNYL 50 mcg/mL INJ 2mL IVP (09:25)
[2022-06-17] MEDS: meperidine 50 mg/mL INJ 12.5 MG IVP (09:45)
--- NOTE | 2022-06-17 15:11 | ANE.PACU2 ---
Inpatient post-anesthesia follow up: Airway intact: Yes Vital signs: Temperature 97 F Pulse Rate 85 Respiratory Rate 18 Blood Pressure 107/78 Pulse Oximetry 93 Oxygen Delivery Me thod Room Air Oxygen Flow Rate 8 Fraction of Inspir ed Oxygen Hydration adequate: Yes Nausea and vomiting: No Pain level: 2 Mental status: Baseline
--- NOTE | 2022-06-17 20:05 | P.OP_ITS ---
Operative Report Date of procedure: June 17, 2022 Pre-op diagnosis: Preop Diagnosis Left foot talonavicular joint arthritis Post-op diagnosis: Same Post-op findings: Extremely soft and yellowish discolored navicular suspicious for AVN of navicular Procedure done: Left foot isolated talonavicular joint arthrodesis CPT 59184 Implants: 1 dog bone plate and corresponding 3.5 locking screws and one 3.5 mm interfrag screw all from [place] Pathology: None Surgeon: Dr. Osbaldo Ramon, D.P.M. 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 The patient has had the aforementioned chief complaint for some time. Conservative treatment measures have been attempted and the patient has opted for surgical intervention at this time. A lengthy discussion regarding the procedure, including risks and complications has been had with the patient and is noted in the recent clinic note. Written and verbal consent have been obtained. All patient questions have been answered to the patient?s satisfaction. No written or verbal guarantees have been given or implied. The patient has been NPO since midnight. The history has been reviewed and the history and physical is current. The signed consent was confirmed and placed in the patient chart. Patient imaging has been reviewed and is consistent with the diagnosis. Under mild sedation, the patient was brought into the operating room and placed on the table in the supine position. IV antibiotics were given by the anesthesia team as preoperative surgical prophylaxis. General sedation was then performed by the anesthesia team. A popliteal/saphenous block was performed by the anesthesia department. A pneumatic tourniquet was then placed about the left thigh. The operative extremity was then prepped and draped in the usual fashion. The extremity was then elevated and exsanguinated before the tourniquet was inflated to 325 mmHg. After inflation, the following procedure was then performed. Attention was directed to the medial aspect of the left foot where a 6 cm incision was made over the dorsomedial aspect of the talonavicular joint. Dissection was carried down through subcutaneous and superficial fascia. Any bleeders were cauterized as necessary. Adjacent vital structures such as the posterior tibial tendon and neurovascular bundle were retracted inferiorly. Dissection was carried down to the level of the talonavicular joint capsule which was incised to reveal the talonavicular joint articulation. Using a [place] elevator blunt dissection was carried out to expose the articulation. The navicular was noted to be extremely soft during this dissection. The [place] elevator penetrated the navicular with little to no effort. An osteotome was used to further break up the talonavicular joint articulation to allow for adequate visualization and prep. Again, the navicular was noted to be extremely soft to the point that the medial portion of the navicular began to crumble. A lamina physician primary care sports medicine was inserted at the talonavicular joint articulation and used to distract the joint. Next, using combination of the osteotome and a curette the articular cartilage was removed from the talonavicular articulation. After prep, the lamina physician primary care sports medicine was removed and there was noted to be a void in the navicular. This void prevented the use of a standard marta bear plate. A dog bone plate was determined to be the best option at this point. It was positioned in the appropriate position and temporary fixated with olive wires. The bone void of the navicular was then filled with beast bone void filler from [place]. The plate was then fixated using 3.5 locking screws. Next a 3.5 mm interfrag screw was placed from proximal medial to distal lateral across the talonavicular joint articulation. Good positioning of the plate and screws was noted on C-arm imaging as well as clinically. The site was then irrigated with sterile saline before attention was directed to closure. Deep tissue was closed with 3-0 Vicryl followed by subcuticular closure with 4-0 Vicryl and skin closed with 4-0 nylon in horizontal mattress fashion. The tourniquet was let down good hyperemic response was noted to all digits of the left foot. Hemostasis was noted to be achieved. Incision was dressed with Xeroform, 4 x 4 gauze, Kerlix before being placed in a well-padded below the knee posterior splint. The patient tolerated the procedure and anesthesia well and without complication. The patient was transported from the operating room to the recovery room with vital signs stable and vascular status intact to all digits o f the left foot. The patient was given both written and verbal instructions to remain strict nonweightbearing to the operative extremity, to keep dressings/splint clean, dry and intact and to take pain medication as directed. The patient will follow-up in the outpatient setting at their scheduled appointment. The patient was discharged with my personal number and was instructed to call if any questions or issues should arise. They were discharged home once anesthesia criteria was met.
== END 2022-06-17 10:47 | disposition home or self-care (01) ==
PROVIDERS: Anesthesiology; PCP Family Medicine; Visit Provider Podiatrist Foot & Ankle Surgery
PROC: (CPT 28740; principal; 2022-06-17 07:00)
DX: M05.772 Rheumatoid arthritis with rheumatoid factor of left ankle and foot without organ or systems involvement (principal); K21.9 Gastro-esophageal reflux disease without esophagitis; Z79.52 Long term (current) use of systemic steroids; F17.210 Nicotine dependence, cigarettes, uncomplicated
CPT/HCPCS: 28740; 73620; 76000; 81025; 84703; C1713; C1762; J0690; J1100; J2175; J2250; J2405; J2704; J2795; J3010; J3490; J7030

== ENCOUNTER → 2022-07-02 13:57 | Outpatient (BNVA) | payer BC, MEDICAID, SELFPAY | PROVIDERS: PCP Family Medicine; Visit Provider Podiatrist Foot & Ankle Surgery | DX: M19.272 Secondary osteoarthritis, left ankle and foot (principal); M19.172 Post-traumatic osteoarthritis, left ankle and foot; M05.79 Rheumatoid arthritis with rheumatoid factor of multiple sites without organ or systems involvement | CPT/HCPCS: 73630 ==

== ENCOUNTER 2022-07-09 01:00 | Outpatient (CLI) | payer BC, MEDICAID, SELFPAY | END 2022-07-09 23:00 | disposition home or self-care (01) | LOC: SPT 07-16 06:59 | PROVIDERS: PCP Family Medicine; Visit Provider Podiatrist Foot & Ankle Surgery | DX: Z46.89 Encounter for fitting and adjustment of other specified devices (principal); M79.672 Pain in left foot | CPT/HCPCS: L4361 ==

== ENCOUNTER → 2022-07-20 15:02 | Outpatient (BNVA) | payer BC, MEDICAID, SELFPAY | PROVIDERS: PCP Family Medicine; Visit Provider Internal Medicine Rheumatology | DX: M05.79 Rheumatoid arthritis with rheumatoid factor of multiple sites without organ or systems involvement (principal); M17.11 Unilateral primary osteoarthritis, right knee; Z71.85 Encounter for immunization safety counseling; Z79.899 Other long term (current) drug therapy | CPT/HCPCS: 36415; 80076; 82565; 85025; 86140 ==

== ENCOUNTER → 2022-07-23 13:45 | Outpatient (BNVA) | payer BC, MEDICAID, SELFPAY | PROVIDERS: PCP Family Medicine; Visit Provider Podiatrist Foot & Ankle Surgery | DX: M19.272 Secondary osteoarthritis, left ankle and foot (principal); M19.90 Unspecified osteoarthritis, unspecified site; M05.79 Rheumatoid arthritis with rheumatoid factor of multiple sites without organ or systems involvement | CPT/HCPCS: 73630 ==

== ENCOUNTER → 2022-08-06 14:06 | Outpatient (BNVA) | payer BC, MEDICAID, SELFPAY | PROVIDERS: PCP Family Medicine; Visit Provider Podiatrist Foot & Ankle Surgery | DX: Z98.890 Other specified postprocedural states (principal); M19.272 Secondary osteoarthritis, left ankle and foot | CPT/HCPCS: 73630 ==

== ENCOUNTER → 2022-09-03 10:09 | Outpatient (BNVA) | payer BC, MEDICAID, SELFPAY | PROVIDERS: PCP Family Medicine; Visit Provider Podiatrist Foot & Ankle Surgery | DX: M79.672 Pain in left foot (principal); Z98.890 Other specified postprocedural states | CPT/HCPCS: 73630 ==

== ENCOUNTER → 2022-09-20 08:07 | Outpatient (BNVA) | payer BC, MEDICAID, SELFPAY | PROVIDERS: PCP Family Medicine; Visit Provider Podiatrist Foot & Ankle Surgery | DX: M79.672 Pain in left foot (principal); Z98.890 Other specified postprocedural states | CPT/HCPCS: 73610 ==

== ENCOUNTER 2022-09-24 22:53 | Inpatient (IN) | payer BC, SELFPAY ==
[2022-09-24 22:56] VITALS: BP 123/78; PULSE 111; RESP 22; TEMP 36.6; O2SAT 95; BMI 24.0
[2022-09-24] MEDS: ziprasidone 20 mg/mL SDV IM (23:39)
[2022-09-24] MEDS: LORazepam 2 mg Tablet PO (23:39)
--- NOTE | 2022-09-24 23:51 | PC.NURSE ---
Pt was digging nails into skin, per script developer. Dr. Kruse was notified and went and assessed the pt. New orders were received.
[2022-09-25] VITALS (7 sets, daily range): BP systolic 93–121; BP diastolic 59–85; PULSE 91–106; RESP 14–18; TEMP 36.6–36.7; O2SAT 92–98
[2022-09-25 00:17] LABS: Acetaminophen 7.6 ug/mL (10-30); Alanine Aminotransferase 13 U/L (0-33); Albumin Level 4.4 g/dL (3.5-5.2); Alkaline Phosphatase 94 U/L (35-105); Anion Gap 15.4 (5-19); Aspartate Amino Transferase 13 U/L (0-32); Blood Urea Nitrogen 7 mg/dL (6-20); Calcium 9.1 mg/dL (8.5-10.5); Carbon Dioxide 25 mmol/L (22-29); Chloride 100 mmol/L (98-107); Globulin 3.2 g/dL (1.3-4.6); Glomerular Filtration Rate 85.4 mL/min (90-130); Glucose 84 mg/dL (65-115); Osmolality Calculated 281 mOsm/kg (285-295); Potassium 3.4 mmol/L (3.5-5.1); Sodium 137 mmol/L (136-145); Total Bilirubin 0.3 mg/dL (0.15-1.2); Total Protein 7.6 g/dL (6.6-8.7)
[2022-09-25 00:22] LABS: Basophils # 0.1 10^3/uL (0.0-0.1); Basophils % 0.9 %; Eosinophils # 0.2 10^3/uL (0.0-0.8); Eosinophils % 1.6 %; Hematocrit 44.3 % (37.0-47.0); Hemoglobin 14.6 g/dL (11.5-15.3); Lymphocytes # 2.5 10^3/uL (0.8-4.8); Lymphocytes % 19.2 %; Mean Corpuscular Hemoglobin 30.2 pg (28.0-34.0); Mean Corpuscular Volume 91.5 fl (81-99); Mean Platelet Volume 10.2 fL (7.4-10.4); Monocytes # 1.1 10^3/uL (0.2-0.9); Monocytes % 8.8 %; Neutrophils # 8.85 10^3/uL (1.8-7.7); Neutrophils % 69.1 %; Nucleated Red Blood Cells % 0 %; Platelet Count 406 10^3/cmm (130-400); Red Blood Count 4.84 10^6/uL (4.1-5.3); Red Cell Distribution Width 12.9 % (12.1-15.1); White Blood Count 12.8 10^3/uL (4.0-10.0)
[2022-09-25 00:30] LABS: Alcohol Level < 10 mg/dL (0-10); Salicylate < 0.3 mg/dL (3-10)
[2022-09-25 00:37] LABS: HCG Qualitative Urine. Negative (Negative)
[2022-09-25 00:42] LABS: Add Urine Microscopic? NO; Charge for UA Resulting for Rev
[2022-09-25 00:47] LABS: Urine Appearance Clear (CLEAR); Urine Color Yellow (Yellow)
[2022-09-25 00:48] LABS: Bilirubin Urine Neg (Negative); Blood Urine Neg (Negative); Glucose Urine UA Norm (Normal); Ketones Urine Negative (Negative); Leukocyte Esterase Urine Negative (Negative); Nitrate Urine Negative (Negative); Protein Urine Neg (Negative); Specific Gravity, Urine 1.025 (1.005-1.030); Urobilinogen Urine Norm (Negative); pH Urine 5 (5-7)
[2022-09-25 01:14] LABS: Amphetamines Screen Urine Negative (Negative); Barbiturates Screen Urine Negative (Negative); Benzodiazepines Screen Urine Negative (Negative); Cocaine Screen Urine Negative (Negative); Opiate Screen Urine Negative (Negative); PCP Screen Urine Negative (Negative); THC Screen Urine Positive (Negative)
--- NOTE | 2022-09-25 02:33 | ED.C_ITS ---
HPI - Psych General: Chief Complaint: Psychiatric Symptoms Stated Complaint: SI Time Seen by Provider: 09/24/22 23:19 Source: patient History of Present Illness: 27-year-old female with a history of rheumatoid arthritis. She presents with psychological distress, feelings that she wants to harm herself, worsening depression. She denies any recent medical illness. She does have a history of rheumatoid arthritis as above. On my interview, she is repeatedly striking herself in the forehead, and raking her fingernails into her forearms. MD complaint: suicidal ideation and feels depressed Onset (ago): hour(s) Duration: getting worse History of same: No Relieving factors: none Exacerbating factors: other Context: significant life stressor Associated psychiatric symptoms: depression and suicidal ideation Associated symptoms: Reports depression and suicidal ideation; Deny auditory hallucinations, visual hallucinations or homicidal ideation Treatments prior to arrival: none If self harm: admits thoughts of self harm Review of Systems Const: Denies: fever(s), chills or body aches Eyes: Denies: change in vision Card: Denies: chest pain or palpitations Resp: Denies: dyspnea, productive cough, non-productive cough or wheezing GI: Denies: abdominal pain, nausea, vomiting, diarrhea or hematochezia : Denies: difficulty voiding Skin/Breast: Denies: rash Neuro: Denies: headache(s), weakness in extremities, dizziness or confusion Psych: Reports: depression and suicidal ideation; Denies: visual hallucinations, auditory hallucinations or homicidal ideation PFS ED PFSH: Medical History Anxiety with depression Diagnosed in 2016 and has been on citalopram managed by PMD. Does not have a psychiatrist/therapist Asthma Diagnosed as a child. It is usually with as needed albuterol, Advair --[place] report clerk [place] [facility] [place] risk medication use No pertinent past medical history Denies diabetes, hypertension, seizures, DVT/PE PMD: Dr. Evans Osteoarthritis of right knee Seropositive rheumatoid arthritis of multiple sites Surgical History H/O section X 2 06/22/2017---primary low transverse [place] Muñoz [place] [facility] [place]ch presentation. ---->single layer closure with no extensions. 02/25/2020--> repeat delivery with total salpingectomy for twin gestation by Dr. muñoz [place] [facility] [place] lumpectomy (~2010) Left breast-- benign Status post tubal ligation 02/25/2020----total salpingectomy at time of second performed by Dr. Muñoz [place] [facility] [place] Pathology showed benign pathology of both tubes Family History Grandmother Family history of thyroid problem Maternal grandmother Heart disease Maternal grandmother Diabetes Maternal grandmother Grandfather Stroke Maternal granfather Heart disease Maternal grandfather Denies family history of Colon cancer Ovarian cancer Hyperlipidemia Breast cancer Hypertension Uterine cancer Social History Smoking and tobacco status: current every day smoker cigarettes Packs smoked per day: 1 Years cigarettes smoked: 9 [ Other cigarette details: Started at age 17] Female Reproductive History: Date of last menstrual period: 09/11/22 Physical Exam Const: GENERAL APPEARANCE: cooperative; not ill appearing and not frail appearing ORIENTATION/CONSCIOUSNESS: Yes awake HENMT: COMMON NORMALS: normocephalic, atraumatic and Normal external nose present HEAD & SCALP: normocephalic and atraumatic FACE & SINUS: normal facial exam and face symmetric NOSE: Normal external nose present Eye: COMMON NORMALS: Equal, round and reactive pupils present and EOMs intact bilaterally PUPIL: Yes Equal, round and reactive pupils present Neck/C-Spine: GENERAL: Yes trachea midline Chest: CHEST: Yes Symmetrical chest wall rise Resp: COMMON NORMALS: normal respiratory effort, No retractions, No use of accessory muscles and clear to auscultation bilaterally AUSCULTATION: clear to auscultation bilaterally Cardio: COMMON NORMALS: regular rate and regular rhythm RATE: regular rate RHYTHM: regular rhythm GI: COMMON NORMALS: Normal to inspection, nondistended, normoactive bowel sounds present Extremity: COMMON NORMALS: no pedal edema Neuro: RICCO COMA SCALE: document GCS findings Ricco coma scale eye opening: Spontaneous Ricco coma scale verbal response: Orientated Ricco coma scale motor response: Obey commands [place] coma scale total score: 15 SENSORY EXAM: Yes extremities (intact) Psych: COMMON NORMALS: speech normal ATTITUDE: Yes agitated ACTIVITY/M OTOR BEHAVIOR: Yes psychomotor agitation, Yes fidgeting and Yes disorganized behavior SPEECH: Yes normal speech MOOD & AFFECT: Yes elevated mood THOUGHT PROCESS: disorganized Skin: COMMON NORMALS: no rashes or lesions noted GENERAL SKIN EXAM: no rashes or lesions noted Course Vital Signs: Vital signs: Vital Signs Temperature 98.0 F 09/25/22 02:07 Pulse Rate 105 H 09/25/22 02:07 Respiratory Rate 15 09/25/22 02:07 Blood Pressure 121/85 09/25/22 02:07 Pulse Oximetry 93 09/25/22 02:07 Oxygen Delivery Me thod Room Air 09/25/22 02:07 MDM - Psych Medical Decision Making Patient is medically stable. Spoke with psychiatry. She is willing to come in for evaluation and treatment. Drug screen and alcohol are negative. Laboratory is stable. She is given Geodon and Ativan in the emergency room with improvement in her agitation. Admission orders are written. Lab Data 09/24/22 23:55 09/24/22 23:55 Laboratory Results WBC 12.8 10^3/uL (4.0-10.0) H 09/24/22 23:55 RBC 4.84 10^6/uL (4.1-5.3) 09/24/22 23:55 Hgb 14.6 g/dL (11.5-15.3) 09/24/22 23:55 Hct 44.3 % (37.0-47.0) 09/24/22 23:55 MCV 91.5 fl (81-99) 09/24/22 23:55 MCH 30.2 pg (28.0-34.0) 09/24/22 23:55 MCHC 33.0 g/dL (30.0-36.0) 09/24/22 23:55 RDW 12.9 % (12.1-15.1) 09/24/22 23:55 Plt Count 406 10^3/cmm (130-400) H 09/24/22 23:55 MPV 10.2 fL (7.4-10.4) 09/24/22 23:55 Neut % (Auto) 69.1 % 09/24/22 23:55 Lymph % (Auto) 19.2 % 09/24/22 23:55 [place] % (Auto) 8.8 % 09/24/22 23:55 Eos % (Auto) 1.6 % 09/24/22 23:55 Baso % (Auto) 0.9 % 09/24/22 23:55 Neut # (Auto) 8.85 10^3/uL (1.8-7.7) H 09/24/22 23:55 Lymph # (Auto) 2.5 10^3/uL (0.8-4.8) 09/24/22 23:55 [place] # (Auto) 1.1 10^3/uL (0.2-0.9) H 09/24/22 23:55 Eos # (Auto) 0.2 10^3/uL (0.0-0.8) 09/24/22 23:55 Baso # (Auto) 0.1 10^3/uL (0.0-0.1) 09/24/22 23:55 Nucleated RBC % (auto) 0 % 09/24/22 23:55 Nucleated RBCs # 0.0 /100WBC 09/24/22 23:55 Sodium 137 mmol/L (136-145) 09/24/22 23:55 Potassium 3.4 mmol/L (3.5-5.1) L 09/24/22 23:55 Chloride 100 mmol/L (98-107) 09/24/22 23:55 Carbon Dioxide 25 mmol/L (22-29) 09/24/22 23:55 Anion Gap 15.4 (5-19) 09/24/22 23:55 BUN 7 mg/dL (6-20) 09/24/22 23:55 Creatinine 0.8 mg/dL (0.5-0.9) 09/24/22 23:55 GFR Calculation 85.4 mL/min (90-130) L 09/24/22 23:55 Glucose 84 mg/dL (65-115) 09/24/22 23:55 Calculated Osmolality 281 mOsm/kg (285-295) L 09/24/22 23:55 Calcium 9.1 mg/dL (8.5-10.5) 09/24/22 23:55 Total Bilirubin 0.3 mg/dL (0.15-1.2) 09/24/22 23:55 AST 13 U/L (0-32) 09/24/22 23:55 ALT 13 U/L (0-33) 09/24/22 23:55 Alkaline Phosphatase 94 U/L (35-105) 09/24/22 23:55 Total Protein 7.6 g/dL (6.6-8.7) 09/24/22 23:55 Albumin 4.4 g/dL (3.5-5.2) 09/24/22 23:55 Globulin 3.2 g/dL (1.3-4.6) 09/24/22 23:55 HCG, Qual Negative (Negative) 09/25/22 00:19 Urine Color Yellow (Yellow) 09/25/22 00:19 Urine Appearance Clear (CLEAR) 09/25/22 00:19 Urine pH 5 (5-7) 09/25/22 00:19 Ur Specific [place] 1.025 (1.005-1.030) 09/25/22 00:19 Urine Protein Neg (Negative) 09/25/22 00:19 Urine Glucose (UA) Norm (Normal) 09/25/22 00:19 Urine Ketones Negative (Negative) 09/25/22 00:19 Urine Blood Neg (Negative) 09/25/22 00:19 Urine Nitrate Negative (Negative) 09/25/22 00:19 Urine Bilirubin Neg (Negative) 09/25/22 00:19 Urine Urobilinogen Norm mg/dL (Negative) 09/25/22 00:19 Ur Leukocyte Esterase Negative (Negative) 09/25/22 00:19 Salicylates < 0.3 mg/dL (3-10) L 09/24/22 23:55 Urine Opiates Screen Negative ng/mL (Negative) 09/25/22 00:19 Acetaminophen 7.6 ug/mL (10-30) L 09/24/22 23:55 Ur Barbiturates Screen Negative ng/mL (Negative) 09/25/22 00:19 Ur Phencyclidine Scrn Negative ng/mL (Negative) 09/25/22 00:19 Ur Amphetamines Screen Negative ng/mL (Negative) 09/25/22 00:19 U Benzodiazepines Scrn Negative ng/mL (Negative) 09/25/22 00:19 Urine Cocaine Screen Negative ng/mL (Negative) 09/25/22 00:19 U Marijuana (THC) Screen Positive ng/mL (Negative) H 09/25/22 00:19 Ethyl Alcohol < 10 mg/dL (0-10) 09/24/22 23:55 Discharge Plan Discharge Patient Disposition: Admitted As Inpatient Admit Provider: Scot Vázquez Clinical Impression: Suicidal ideation Condition: Stable Coding Level of Care Code ED Project Asst for Barb Blancas
[2022-09-25] MEDS: predniSONE 10 mg Tablet 5 MG PO (09:46)
[2022-09-25] MEDS: citalopram 20 mg Tablet PO (09:46)
[2022-09-25] MEDS: pantoprazole DR 40 mg Tablet PO (09:47)
[2022-09-25] MEDS: budesonide 0.5 mg/2 mL Neb INHALATION (09:55)
[2022-09-25] MEDS: ipratropium 0.5 mg/2.5 mL Neb INHALATION (09:55)
[2022-09-25] MEDS: albuterol 2.5 mg/3 mL Neb INHALATION ×2 (09:55→12:45)
[2022-09-25] MEDS: NON-FORMULARY MEDICATION (Leflunomide 20 mg tablet) 20 EACH PO (11:13)
[2022-09-25] MEDS: hyDROXYzine 25 mg Capsule 50 MG PO ×2 (12:10→20:14)
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
[2022-09-25] MEDS: duloxetine 30 mg Capsule PO (14:22)
[2022-09-25] MEDS: nicotine 2 mg Gum BUCCAL (20:14)
[2022-09-25] MEDS: quetiapine 25 mg Tablet PO (20:14)
[2022-09-25] MEDS: OLANZapine 5 mg ODT PO (20:14)
[2022-09-26 06:00] VITALS: BP 108/72; PULSE 80; RESP 18; TEMP 36.8; O2SAT 96
[2022-09-26] MEDS: hyDROXYzine 25 mg Capsule 50 MG PO ×2 (07:42→20:05)
[2022-09-26] MEDS: predniSONE 10 mg Tablet 5 MG PO (08:06)
[2022-09-26] MEDS: NON-FORMULARY MEDICATION (Leflunomide 20 mg tablet) 20 EACH PO (08:06)
[2022-09-26] MEDS: nicotine 21 mg Patch 1 PATCH TRANSDERMA (08:07)
[2022-09-26] MEDS: pantoprazole DR 40 mg Tablet PO (08:07)
[2022-09-26] MEDS: duloxetine 30 mg Capsule PO (08:07)
[2022-09-26] MEDS: OLANZapine 5 mg ODT PO ×3 (08:16→20:55)
[2022-09-26] MEDS: diphenhydrAMINE 50 mg/mL SDV 1mL IM (08:47)
[2022-09-26] MEDS: haloperidol inj 5 mg/mL INJ 1 mL IM (08:48)
[2022-09-26] MEDS: LORazepam 2 mg/mL INJ 1 mL IM (08:48)
--- NOTE | 2022-09-26 08:55 | PC.NURSE ---
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 This RN attempted to distract the patient and sit in the floor with her, but she would say a few words to me and then start talking to herself again. Patient saying thing such as, I'm going to be just like my mom. This isn't fair. I'm sorry, I'm sorry, I'm sorry. There's a birthday constitution party on tuesday and I can't go. My daughter asks where I went. I can't take care of my kids. My son is autistic and he can't talk to me. He can't talk. My 2 year old isn't potty trained. I should have him potty trained by now. Patient's speech is very pressured and throughout our conversation she would slam her head with her fists. I attempted to redirect her hitting by giving her squishy balls to squeeze with each hand, which seemed to help a little although she continued to hit herself. Multiple attempts to redirect the patient were made, but she kept coming back to negative self take and self injurious behaviors. Benadryl 50mg IM was given in left deltoid and haldol 5 mg IM and ativan 2mg IM were given in the right deltoid.
[2022-09-26] MEDS: albuterol 2.5 mg/3 mL Neb INHALATION ×2 (09:19→16:07)
[2022-09-26] MEDS: ADVAIR 250/50 1 EACH PO (09:21)
[2022-09-26] MEDS: SPIRIVA 1 EACH INHALATION (09:21)
[2022-09-26 09:28] VITALS: PULSE 96; RESP 18; O2SAT 98
[2022-09-26 14:00] VITALS: BP 96/60; PULSE 111; RESP 18; TEMP 36.8; O2SAT 95
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
[2022-09-26 16:09] VITALS: PULSE 111; RESP 20; O2SAT 98
[2022-09-26 16:16] VITALS: PULSE 105
[2022-09-26] MEDS: nicotine 2 mg Gum BUCCAL ×2 (18:06→20:08)
[2022-09-26] MEDS: quetiapine 25 mg Tablet 50 MG PO (20:05)
[2022-09-26 20:12] VITALS: BP 103/68; PULSE 115; RESP 16; TEMP 36.6; O2SAT 94
[2022-09-27 06:00] VITALS: BP 101/67; PULSE 89; RESP 18; TEMP 36.6; O2SAT 97
[2022-09-27] MEDS: predniSONE 10 mg Tablet 5 MG PO (08:04)
[2022-09-27] MEDS: duloxetine 30 mg Capsule PO (08:04)
[2022-09-27] MEDS: pantoprazole DR 40 mg Tablet PO (08:04)
[2022-09-27] MEDS: NON-FORMULARY MEDICATION (Leflunomide 20 mg tablet) 20 EACH PO (08:05)
[2022-09-27] MEDS: OLANZapine 5 mg ODT PO (08:54)
[2022-09-27 09:04] VITALS: PULSE 112; RESP 20; O2SAT 95
[2022-09-27] MEDS: albuterol 2.5 mg/3 mL Neb INHALATION ×3 (09:04→19:28)
[2022-09-27] MEDS: budesonide 0.5 mg/2 mL Neb INHALATION ×2 (09:04→19:28)
[2022-09-27] MEDS: haloperidol 5 mg Tablet PO (09:49)
[2022-09-27] MEDS: nicotine 2 mg Gum BUCCAL ×4 (09:57→20:43)
--- NOTE | 2022-09-27 10:08 | PC.NURSE ---
Patient was in the dayroom, hitting her head with her hands. Patient seemed very agitated. Patient was talking rapidly and quietly, saying such things as I'm a failure for coming here. I can't control my emotions. This nurse attempted to redirect her. This nurse brought her squishy balls and encouraged patient to squeeze the stress balls instead of hitting self in head. Patient squeezed balls briefly before using them clenched in her fists to hit herself in the head. The hits were padded because of this. Administered Zyprexa 5mg ODT at 0854. Second nurse sat with patient for a while as a supportive person.
--- NOTE | 2022-09-27 10:15 | PC.NURSE ---
At about 0845, this nurse heard crying coming from this patient's room. Found patient sitting cross-legged on the floor, crying while hitting herself in her head. This nurse encouraged patient to use her squishing balls as way to distract herself from self-harm. Patient began vigorously squeezing the balls, while rocking back and forth. Patient told this nurse that she should be at home with her kids and that she was a failure for being here instead of at home. Attempted to redirect patient. Patient's crying slowed but began slapping and hitting self in head. This nurse asked patient if she would like some medication. Patient stated that yes, she probably needed something. This nurse had METEOROLOGY INSTRUCTOR come sit with patient while getting medication. Administered Haldol to patient at 0958. After sitting with patient for a few more minutes, patient calmed down somewhat. Patient felt ready to go to Group when the time came. Will continue to monitor patient closely.
[2022-09-27] MEDS: ibuprofen 600 mg Tablet PO ×2 (10:21→18:17)
[2022-09-27 11:51] VITALS: PULSE 104; RESP 20; O2SAT 95
[2022-09-27 14:00] VITALS: BP 106/70; PULSE 116; RESP 18; TEMP 36.7; O2SAT 95
[2022-09-27] MEDS: hyDROXYzine 25 mg Capsule 50 MG PO ×2 (17:09→20:30)
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
[2022-09-27 19:28] VITALS: PULSE 93; RESP 18; O2SAT 96
[2022-09-27 20:06] VITALS: BP 115/77; PULSE 87; RESP 18; TEMP 36.4; O2SAT 95
[2022-09-27] MEDS: quetiapine 100 mg Tablet PO (20:34)
[2022-09-28 06:00] VITALS: BP 113/74; PULSE 100; RESP 18; TEMP 36.7; O2SAT 92
[2022-09-28] MEDS: acetaminophen 325 mg Tablet 650 MG PO (06:59)
[2022-09-28] MEDS: predniSONE 10 mg Tablet 5 MG PO (07:34)
[2022-09-28] MEDS: duloxetine 60 mg Capsule PO (07:34)
[2022-09-28] MEDS: hyDROXYzine 25 mg Capsule 50 MG PO ×2 (07:34→13:03)
[2022-09-28] MEDS: pantoprazole DR 40 mg Tablet PO (07:34)
[2022-09-28] MEDS: NON-FORMULARY MEDICATION (Leflunomide 20 mg tablet) 20 EACH PO (07:35)
--- NOTE | 2022-09-28 07:40 | PC.NURSE ---
When assessing patient this morning, patient began crying. Patient rated anxiety 8/10 and depression 8/10. When asked if she wanted to hurt herself, patient replied a little bit . She stated that she would hurt herself by hitting herself in her head. She stated that she was depressed and anxious because her kids had to wake up this morning without her being there. Administered 50mg Vistaril PO to patient. Will continue to monitor.
[2022-09-28] MEDS: nicotine 4 mg lozenge MUCOUS MEM ×4 (08:27→20:36)
[2022-09-28 09:00] VITALS: PULSE 89; RESP 16; O2SAT 96
[2022-09-28] MEDS: budesonide 0.5 mg/2 mL Neb INHALATION (09:01)
[2022-09-28] MEDS: ADVAIR 250/50 1 EACH PO ×2 (09:01→19:51)
[2022-09-28] MEDS: OLANZapine 5 mg ODT PO (10:31)
--- NOTE | 2022-09-28 10:31 | PC.NURSE ---
PRN ZYPREXA ZYDIS 5 MG GIVEN PO PER PT C/O FURTHER ANXIETY/AGITATION. CURRENTLY PARTICIPATING IN GROUP THERAPY. HANDS SHAKING, PLEASANT WITH STAFF
[2022-09-28] MEDS: nicotine 2 mg Gum BUCCAL (11:26)
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
[2022-09-28 13:00] VITALS: PULSE 102; RESP 16; O2SAT 96
[2022-09-28 14:00] VITALS: BP 124/88; PULSE 122; RESP 16; TEMP 36.8; O2SAT 94
[2022-09-28] MEDS: ibuprofen 600 mg Tablet PO (16:33)
--- NOTE | 2022-09-28 16:34 | PC.NURSE ---
Gave patient 600mg Ibuprofen for foot pain related to a surgery in her past. Patient rated pain 5/10.
[2022-09-28] MEDS: albuterol 2.5 mg/3 mL Neb INHALATION (17:34)
[2022-09-28] MEDS: quetiapine 100 mg Tablet PO (19:35)
[2022-09-28] MEDS: quetiapine 25 mg Tablet 50 MG PO (19:35)
[2022-09-28 19:52] VITALS: PULSE 100; RESP 18; O2SAT 97
[2022-09-28 21:54] VITALS: BP 119/85; PULSE 91; RESP 18; TEMP 36.7; O2SAT 96
[2022-09-29 06:00] VITALS: BP 115/82; PULSE 99; RESP 20; TEMP 36.8; O2SAT 93
[2022-09-29] MEDS: duloxetine 60 mg Capsule PO (08:03)
[2022-09-29] MEDS: nicotine 4 mg lozenge MUCOUS MEM ×2 (08:03→12:44)
[2022-09-29] MEDS: pantoprazole DR 40 mg Tablet PO (08:03)
[2022-09-29] MEDS: ADVAIR 250/50 1 EACH PO (08:04)
[2022-09-29] MEDS: predniSONE 10 mg Tablet 5 MG PO (08:04)
[2022-09-29] MEDS: NON-FORMULARY MEDICATION (Leflunomide 20 mg tablet) 20 EACH PO (08:04)
[2022-09-29] MEDS: SPIRIVA 1 EACH INHALATION (08:04)
[2022-09-29 08:05] VITALS: PULSE 106; RESP 16; O2SAT 98
[2022-09-29] MEDS: ibuprofen 600 mg Tablet PO (08:05)
[2022-09-29] MEDS: hyDROXYzine 25 mg Capsule 50 MG PO (08:51)
[2022-09-29] MEDS: nicotine 2 mg Gum BUCCAL ×2 (09:54→14:39)
[2022-09-29 12:39] VITALS: PULSE 120; RESP 18; O2SAT 96
[2022-09-29] MEDS: OLANZapine 5 mg ODT PO (12:44)
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
[2022-09-29 15:46] VITALS: PULSE 116; RESP 18; O2SAT 95
--- NOTE | 2022-10-01 09:54 | PC.NURSE ---
Pt contacted NPU with questions regarding her seroquel prescriptions. Pt received only 45 tablets upon discharge. Orders show the pt was to be receiving 150 mg po twice a day, i.e., daily and at bedtime. Contacted the [facility] pharmacy for clarification. Reviewed discharge medication information with the pharmacy as well as the doctor's discharge summary. Pharmacy said the order would be put in for seroquel 150 mg po BID as the dosages were the same, there was no indication either dose was extended release, and her payor wouldn't pay for two prescriptions. This magazine writer called the patient back and explained what was to happen and suggested she contact the pharmacy to determine when any additional medication would be available. She verbalized her understanding.
== END 2022-09-29 16:02 | disposition home or self-care (01) | DRG 881 ==
LOC: ER 23:19 → NP 09-25 01:22
PROVIDERS: Admitting Provider Psychiatry & Neurology Psychiatry; Emergency Provider Emergency Medicine; PCP Family Medicine; Visit Provider Psychiatry & Neurology Psychiatry
DX: F32.9 Major depressive disorder, single episode, unspecified (principal); R45.851 Suicidal ideations; F41.1 Generalized anxiety disorder; J45.909 Unspecified asthma, uncomplicated; M05.9 Rheumatoid arthritis with rheumatoid factor, unspecified; F17.210 Nicotine dependence, cigarettes, uncomplicated; F43.10 Post-traumatic stress disorder, unspecified; F63.3 Trichotillomania
CPT/HCPCS: 36415; 80053; 80306; 80307; 81003; 81025; 85025; 94640; 96372; 97150; 97165; 99285; J1200; J1630; J2060; J3486; J7512; J7613; J7626; J7644

== ENCOUNTER → 2022-10-19 14:47 | Outpatient (BNVA) | payer BC, MEDICAID, SELFPAY | PROVIDERS: PCP Family Medicine; Visit Provider Internal Medicine Rheumatology | DX: M05.79 Rheumatoid arthritis with rheumatoid factor of multiple sites without organ or systems involvement (principal); Z79.899 Other long term (current) drug therapy; M17.11 Unilateral primary osteoarthritis, right knee; Z71.85 Encounter for immunization safety counseling | CPT/HCPCS: 36415; 80076; 82565; 85025; 86140 ==

== ENCOUNTER → 2022-11-01 13:40 | Outpatient (BNVA) | payer BC, SELFPAY | PROVIDERS: PCP Family Medicine; Visit Provider Nurse Practitioner | DX: Z79.899 Other long term (current) drug therapy (principal); F43.10 Post-traumatic stress disorder, unspecified; F12.90 Cannabis use, unspecified, uncomplicated; F17.200 Nicotine dependence, unspecified, uncomplicated; F15.11 Other stimulant abuse, in remission | CPT/HCPCS: 80061; 83036 ==

== ENCOUNTER → 2022-11-19 09:57 | Outpatient (BNVA) | payer BC, SELFPAY | PROVIDERS: PCP Family Medicine; Visit Provider Nurse Practitioner Family | DX: R30.9 Painful micturition, unspecified (principal); N39.0 Urinary tract infection, site not specified; R31.9 Hematuria, unspecified; L02.31 Cutaneous abscess of buttock | CPT/HCPCS: 81003; 87086 ==

== ENCOUNTER 2022-12-07 10:28 | Outpatient (CLI) | payer BC, MEDICAID, SELFPAY ==
--- NOTE | 2022-12-07 10:51 | US_ITS ---
WS: [id number] ULTRASOUND LEFT BREAST HISTORY: Six-month follow-up LEFT breast mass. COMPARISON: 06/02/2022, 11/03/2011 TECHNIQUE: 2-D and Doppler. In the LEFT breast at 12:00, 3 cm from the nipple is a hypoechoic mass without shadowing or increased vascularity. Mass is ovoid in shape measuring 0.9 x 0.4 x 1.1 cm. Very similar in appearance to the prior examination. US/US breast LT limited* [id number] IMPRESSION: BI-RADS: 3-Probably Benign FOLLOW-UP: 6 Month Follow-up Recommend additional 6 month follow-up LEFT breast mass. Stable and benign in a ppearance. Recommend continued 6 month ultrasound follow-up.
== END 2022-12-07 10:29 | disposition home or self-care (01) ==
PROVIDERS: PCP Family Medicine; Visit Provider Nurse Practitioner Family
DX: N63.25 Unspecified lump in the left breast, overlapping quadrants (principal)
CPT/HCPCS: 76642

== ENCOUNTER → 2022-12-17 15:58 | Outpatient (BNVA) | payer BC, MEDICAID, SELFPAY | PROVIDERS: PCP Family Medicine; Visit Provider Nurse Practitioner Family | DX: N23 Unspecified renal colic (principal) | CPT/HCPCS: 81003; 87086 ==

== ENCOUNTER → 2023-01-10 14:15 | Outpatient (BNVA) | payer BC, MEDICAID, SELFPAY | PROVIDERS: PCP Family Medicine; Visit Provider Nurse Practitioner Family | DX: D64.9 Anemia, unspecified (principal); N23 Unspecified renal colic | CPT/HCPCS: 80053; 81003; 85025 ==

== ENCOUNTER → 2023-04-26 13:29 | Outpatient (BNVA) | payer BC, SELFPAY | PROVIDERS: PCP Family Medicine; Visit Provider Podiatrist Foot & Ankle Surgery | DX: M79.672 Pain in left foot (principal); M25.572 Pain in left ankle and joints of left foot; M79.671 Pain in right foot; M25.571 Pain in right ankle and joints of right foot; M05.79 Rheumatoid arthritis with rheumatoid factor of multiple sites without organ or systems involvement; M17.11 Unilateral primary osteoarthritis, right knee; Z79.899 Other long term (current) drug therapy; Z71.85 Encounter for immunization safety counseling | CPT/HCPCS: 36415; 73630; 80076; 82565; 85025; 86140; 86480 ==

== ENCOUNTER → 2023-04-27 09:45 | Outpatient (BNVA) | payer BC, SELFPAY | PROVIDERS: PCP Family Medicine; Visit Provider Nurse Practitioner Women's Health | DX: N93.9 Abnormal uterine and vaginal bleeding, unspecified (principal); R87.610 Atypical squamous cells of undetermined significance on cytologic smear of cervix (ASC-US); R87.810 Cervical high risk human papillomavirus (HPV) DNA test positive; N89.8 Other specified noninflammatory disorders of vagina | CPT/HCPCS: 84439; 84443; 87624 ==

== ENCOUNTER → 2023-05-11 08:36 | Outpatient (BNVA) | payer BC, SELFPAY | PROVIDERS: PCP Family Medicine; Visit Provider Nurse Practitioner Women's Health | DX: N89.8 Other specified noninflammatory disorders of vagina (principal); N83.291 Other ovarian cyst, right side | CPT/HCPCS: 76830 ==

== ENCOUNTER 2023-05-11 15:33 | Emergency (ER) | payer BC, MEDICAID, SELFPAY ==
--- NOTE | 2023-05-11 15:42 | XRR_ITS ---
PROCEDURE INFORMATION: Exam: XR Chest Exam date and time: 05/11/2023 3:47 PM Age: 28 years old Clinical indication: Condition or disease; Lung condition and disease; Asthma; Severity not specified TECHNIQUE: Imaging protocol: Radiologic exam of the chest. Views: 1 view. COMPARISON: CR XR chest 1V portable [id number] 02/11/2022 9:25 AM FINDINGS: Lungs: Unremarkable. No consolidation. Pleural spaces: Unremarkable. No pleural effusion. No pneumothorax. Heart/Mediastinum: Unremarkable. No cardiomegaly. Bones/joints: Mild scoliosis with mild and moderate multilevel spondylosis. XR/XR chest 1V portable [id number] IMPRESSION: No acute disease.
[2023-05-11 15:55] VITALS: BP 145/80; PULSE 101; RESP 17; O2SAT 91; BMI 34.5
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
[2023-05-11] MEDS: LORazepam 2 mg Tablet PO (16:02)
[2023-05-11 16:36] LABS: Basophils # 0.1 10^3/uL (0.0-0.1); Basophils % 1.4 %; Hematocrit 40.9 % (36-47); Lymphocytes # 1.6 10^3/uL (0.8-4.8); Lymphocytes % 18.2 %; Mean Corpuscular Hemoglobin 30.1 pg (27-33); Mean Platelet Volume 10.2 fL (7.4-10.4); Monocytes # 0.6 10^3/uL (0.2-0.9); Neutrophils # 6.59 10^3/uL (1.8-7.7); Neutrophils % 73.2 %; Nucleated Red Blood Cells % 0 %; Platelet Count 348 10^3/cmm (157-399); Red Blood Count 4.35 10^6/uL (3.85-5.65); Red Cell Distribution Width 12.8 % (12.1-15.1); White Blood Count 9.01 10^3/uL (3.29-11.43)
[2023-05-11 16:50] LABS: HCG Qualitative Urine. Negative (Negative)
[2023-05-11 17:02] LABS: Alanine Aminotransferase 16 U/L (0-33); Albumin Level 4.7 g/dL (3.5-5.2); Alkaline Phosphatase 98 U/L (35-105); Anion Gap 12.9 (5-19); Aspartate Amino Transferase 15 U/L (0-32); Blood Urea Nitrogen 10 mg/dL (6-20); Calcium 9.3 mg/dL (8.5-10.5); Carbon Dioxide 25 mmol/L (22-29); Chloride 104 mmol/L (98-107); Globulin 2.7 g/dL (1.3-4.6); Glomerular Filtration Rate 98.9 mL/min (90-130); Glucose 63 mg/dL (65-115); Osmolality Calculated 283 mOsm/kg (285-295); Potassium 3.9 mmol/L (3.5-5.1); Sodium 138 mmol/L (136-145); Thyroid Stimulating Hormone 1.34 uIU/mL (0.27-4.20); Total Bilirubin 0.4 mg/dL (0.15-1.2); Total Protein 7.4 g/dL (6.6-8.7)
[2023-05-11 17:05] LABS: Acetaminophen < 5.0 ug/mL (10-30); Alcohol Level < 10 mg/dL (0-10); Salicylate < 0.3 mg/dL (3-10)
[2023-05-11] MEDS: ziprasidone 20 mg/mL SDV IM (18:10)
[2023-05-11] MEDS: water for injection-sterile 10 ML (18:13)
--- NOTE | 2023-05-11 18:30 | PC.NURSE ---
WHEN COMING UP TO CHECK ON PT, SHE WAS ROCKING BACK AND FORTH IN THE WOO RECLINER BY RM 9 AND CONTINUOUSLY PICKING AT HER L WRIST. UPON FURTHER EVALUATION, PT HAS A SUPERFICIAL LINEAR ABRASION ABOUT 2 INCHES IN LENGTH WITH SOME BLEEDING. PT STATES I AM JUST TRYING TO SLICE MY WRISTS WITH MY FINGERNAIL. PT ALSO HAS BRIGHT RED BLOOD UNDER THUMB FINGERNAIL ON R HAND. PT WRIST WRAPPED IN [place] AND ADVISED TO STOP PICKING AT HER WRIST. VERBALIZED UNDERSTANDING.
[2023-05-11 19:14] LABS: Influenza A by IFA negative (Negative); Influenza B by IFA negative (Negative)
[2023-05-11 19:15] LABS: SARS Covid-2 Antigen negative (Negative)
[2023-05-11 23:04] LABS: Add Urine Microscopic? NO; Charge for UA Resulting for Rev
[2023-05-11 23:15] LABS: Bilirubin Urine Neg (Negative); Blood Urine Neg (Negative); Glucose Urine UA Norm (Normal); Ketones Urine 1+ (Negative); Leukocyte Esterase Urine Negative (Negative); Nitrate Urine Negative (Negative); Protein Urine Neg (Negative); Specific Gravity, Urine 1.025 (1.005-1.030); Urine Appearance Cloudy (CLEAR); Urine Color Yellow (Yellow); Urobilinogen Urine Norm (Negative); pH Urine 5 (5-7)
[2023-05-11 23:16] LABS: Amphetamines Screen Urine Positive (Negative); Barbiturates Screen Urine Negative (Negative); Benzodiazepines Screen Urine Negative (Negative); Cocaine Screen Urine Negative (Negative); Opiate Screen Urine Negative (Negative); PCP Screen Urine Negative (Negative); THC Screen Urine Positive (Negative)
--- NOTE | 2023-05-12 00:34 | PC.NURSE ---
Patient spoke with Deysi at [facility]. Pt voiced concerns about insurance coverage.
[2023-05-12 07:42] VITALS: BP 117/59; PULSE 99; O2SAT 94
[2023-05-12] MEDS: acetaminophen 500 mg Tablet 1000 MG PO (08:57)
[2023-05-12 09:52] VITALS: PULSE 107; RESP 20; O2SAT 96
[2023-05-12] MEDS: albuterol 2.5 mg/3 mL Neb INHALATION (09:52)
--- NOTE | 2023-05-12 10:10 | PC.NURSE ---
Addendum entered by Franchesca Villa RN 05/12/23 10:12: [facility] SITTING IN FRONT OF DOOR TO ROOM. Original Note: PT STATED THAT SHE NEEDS A BREATHING TX FOR HER ASTHMA AND APPEARS ANXIOUS. DR HAWKINS NOTIFIED AND ORDERED ALBUTEROL TX. RESPIRATORY NOTIFIED AND GAVE TX. PT NOW RESTING IN BED AND CALM.
--- NOTE | 2023-05-12 12:00 | PC.NURSE ---
PT CALLED AND REQUESTED TO SPEAK WITH PT. PER CHARGE NURSE PT WAS ALLOWED TO SPEAK ON THE PHONE. PT WALKED OUT TO NURSES STATION PHONE IN FRONT OF ROOM 6 AND SPOKE ON THE PHONE FOR A FEW MOMENTS. PT BACK TO ROOM WITH NO INCIDENT.
[2023-05-12] MEDS: ziprasidone 20 mg/mL SDV IM (12:36)
[2023-05-12 14:00] VITALS: PULSE 84; O2SAT 95
--- NOTE | 2023-05-12 19:12 | PC.NURSE ---
Patient began making statements of wanting to leave facility to [facility]. This nurse and Dr Johnson were informed. 96-hour hold paperwork filled out and dye house helper were informed.
--- NOTE | 2023-05-12 19:40 | PC.NURSE ---
96 Hour Involuntary Hold Patient Rights have been presented to patient and a copy of the same has been given to her. Book Salesman Siomara Howard was present at bedside at the time of presentation.
[2023-05-12] MEDS: LORazepam 2 mg/mL INJ 1 mL IM (19:45)
== END 2023-05-12 22:15 ==
PROVIDERS: Emergency Medicine; Emergency Provider Emergency Medicine; PCP Family Medicine
DX: R45.851 Suicidal ideations (principal); Z11.52 Encounter for screening for COVID-19; F17.210 Nicotine dependence, cigarettes, uncomplicated
CPT/HCPCS: 36415; 71045; 80053; 80306; 80307; 81003; 81025; 84443; 85025; 87426; 87804; 94640; 96372; 99285; J2060; J3486; J7613

== ENCOUNTER 2023-06-07 12:47 | Outpatient (CLI) | payer BC, SELFPAY ==
--- NOTE | 2023-06-07 12:45 | US_ITS ---
WS: [id number] ULTRASOUND BREAST LEFT TECHNIQUE: Ultrasound left breast focused area of concern. CLINICAL INFORMATION: N63.20 - Unspecified lump in the left breast, unspecified... Prior remote histo ry of LEFT breast surgery with reported benign nodule removal COMPARISON: Ultrasound 12/07/2022 and 06/02/2022 and 2011 FINDINGS: Again seen is the ovoid hypoechoic breast nodule at the 12 o'clock position 3 cm from the nipple. Thi s is unchanged in appearance since the prior studies and measures approximately 10 x 5 x 10 mm. This is stable compared to 06/02/2022. This most likely represents a small residual fibroadenoma. Rec ommend additional 6-month follow-up until 2-year stability demonstrated. IMPRESSION: BI-RADS 3 probably benign US/US breast LT limited* [id number] Follow-up: 6-month follow-up ultrasound LEFT breast
== END 2023-06-07 12:48 | disposition home or self-care (01) ==
LOC: RAD 12:48
PROVIDERS: PCP Family Medicine; Visit Provider Nurse Practitioner Family
DX: N63.25 Unspecified lump in the left breast, overlapping quadrants (principal)
CPT/HCPCS: 76642

== ENCOUNTER → 2023-07-06 13:15 | Outpatient (BNVA) | payer OTHER, SELFPAY | PROVIDERS: PCP Family Medicine; Visit Provider Nurse Practitioner | DX: F41.1 Generalized anxiety disorder (principal); Z79.899 Other long term (current) drug therapy | CPT/HCPCS: 80061; 83036 ==

== ENCOUNTER 2023-07-26 13:52 | Outpatient (CLI) | payer BC, MEDICAID, SELFPAY ==
[2023-07-11 15:41] VITALS: BP 119/79; BMI 23.5
--- NOTE | 2023-07-26 13:56 | MRR_ITS ---
PROCEDURE INFORMATION: Exam: MR Pelvis Without and With Contrast; Uterus and Adnexa Exam date and time: 07/26/2023 2:20 PM Age: 28 years old Clinical indication: Abnormal findings; Abnormal imaging test; Prior surgery; Surgery date: 6+ months; Surgery type: C section x 2; Patient HX: Vaginal mass seen on a recent US transvaginal done on 05/11/23; Additional info: N89.8 - other specified noninflammatory disorders of vagina TECHNIQUE: Imaging protocol: Magnetic resonance imaging of the pelvis without and with contrast. Exam focused on the uterus and adnexa. Contrast material: MULTIHANCE; Contrast volume: 15 ml; Contrast route: INTRAVENOUS (IV); COMPARISON: 1. CT abdomen pelvis w con* [id number] 02/11/2022 12:01 PM 2. US transvaginal [id number] 05/11/2023 8:50 AM FINDINGS: Uterus: Focal defect at the anterior lower uterine segment in keeping with prior section. Otherwise normal contour and signal. Normal endometrium and junctional zone. Right ovary/adnexa: Ovary is normal in size. Normal follicles. Left ovary/adnexa: Ovary is normal in size. Normal follicles. Vagina: Tampon noted in the vaginal canal. Corresponding to the sonographic finding of concern arising from the right anterolateral vagina is a circumscribed ovoid 2.2 x 1.0 x 1.1 cm heterogeneously T1, T2 hyperintense cystic structure with mild peripheral postcontrast enhancement and thin enhancing partial septation inferiorly. No central postcontrast enhancement. Associated diffusion restriction. Intraperitoneal space: No free fluid. Soft tissues: Unremarkable. MR/MR pelvis wo/w con [id number] IMPRESSION: 2.2 cm cystic lesion arising from the right anterolateral vagina compatible with hemorrhagic versus proteinaceous Loi duct cyst. Peripheral enhancement may indicate inflammation/infection.
[2023-07-26] MEDS: gadobenate dimeglumine 20 mL vial IV (15:12)
== END 2023-07-26 13:53 | disposition home or self-care (01) ==
LOC: RAD 13:52
PROVIDERS: PCP Family Medicine; Visit Provider Obstetrics & Gynecology
DX: N89.8 Other specified noninflammatory disorders of vagina (principal)
CPT/HCPCS: 72197; A9577

== ENCOUNTER → 2023-08-18 13:00 | Outpatient (BNVA) | payer BC, SELFPAY ==
[2023-07-11 15:41] VITALS: BP 119/79; BMI 23.5
== END ==
PROVIDERS: PCP Family Medicine; Visit Provider Obstetrics & Gynecology
DX: R87.619 Unspecified abnormal cytological findings in specimens from cervix uteri (principal)
CPT/HCPCS: 81025; 88305

== ENCOUNTER → 2023-08-31 15:37 | Outpatient (BNVA) | payer BC, SELFPAY ==
[2023-07-11 15:41] VITALS: BP 119/79; BMI 23.5
== END ==
PROVIDERS: PCP Family Medicine; Visit Provider Nurse Practitioner Family
DX: Z20.5 Contact with and (suspected) exposure to viral hepatitis (principal); Z79.899 Other long term (current) drug therapy; M05.79 Rheumatoid arthritis with rheumatoid factor of multiple sites without organ or systems involvement
CPT/HCPCS: 80076; 82565; 85025; 86140; 86705; 86706; 86709; 86803; 87340

== ENCOUNTER 2023-12-08 10:31 | Outpatient (CLI) | payer BC, SELFPAY ==
[2023-07-11 15:41] VITALS: BP 119/79; BMI 23.5
--- NOTE | 2023-12-08 11:15 | US_ITS ---
WS: [id number] ULTRASOUND BREAST LEFT TECHNIQUE: Ultrasound left breast focused area of concern. CLINICAL INFORMATION: N63.20 - Unspecified lump in the left breast, unspecified... COMPARISON: May and November 2022 and May 2022 FINDINGS: Again seen is the ovoid hypoechoic breast nodule at the 12 o'clock position 3 cm from the nipple. T his is unchanged in appearance since the prior studies and measures approximately 1.1 x 1.1 x 0.4 cm. This is stable dating back to 06/02/2022. This most likely represents a small fibroadenoma. Recommend additional 6-month follow-up until 2-year stability demonstrated. US/US breast LT limited* [id number] IMPRESSION: BI-RADS 3 probably benign Follow-up: 6-month follow-up ultrasound.
== END 2023-12-08 10:32 | disposition home or self-care (01) ==
LOC: RAD 10:31
PROVIDERS: PCP Family Medicine; Visit Provider Nurse Practitioner Family
DX: N63.25 Unspecified lump in the left breast, overlapping quadrants (principal)
CPT/HCPCS: 76642

== ENCOUNTER → 2023-12-23 08:51 | Outpatient (BNVA) | payer BC, MEDICAID, SELFPAY ==
[2023-07-11 15:41] VITALS: BP 119/79; BMI 23.5
== END ==
PROVIDERS: PCP Family Medicine; Visit Provider Podiatrist Foot & Ankle Surgery
DX: T84.84XA Pain due to internal orthopedic prosthetic devices, implants and grafts, initial encounter; Y79.2 Prosthetic and other implants, materials and accessory orthopedic devices associated with adverse incidents; M96.0 Pseudarthrosis after fusion or arthrodesis; M79.672 Pain in left foot
CPT/HCPCS: 73630

== ENCOUNTER 2024-02-29 07:48 | Day surgery (SDC) | payer BC, MEDICAID, SELFPAY ==
[2023-07-11 15:41] VITALS: BP 119/79; BMI 23.5
[2024-02-24 14:10] VITALS: BP 119/79; BMI 23.5
[2024-02-29] VITALS (9 sets, daily range): BP systolic 109–142; BP diastolic 68–85; PULSE 85–112; RESP 16; TEMP 36.2–36.6; O2SAT 91–97; BMI 26.6
--- NOTE | 2024-02-29 | XR_ITS ---
WS: [id number] Left ankle, C-arm fluoroscopy views Clinical Data: OR PICS Comparison: Left foot, 12/23/2023 Findings: Dr. Ramon revised the fusion of the talus navicular joint. XR/XR ankle LT 2V [id number] Impression: Revision of talar navicular joint effusion.
--- NOTE | 2024-02-29 08:31 | ANES.PREANE2 ---
Pre-Anesthetic Assessment Height/Weight: Height 5 ft 6 in Weight 165 lb Temp Pulse Resp BP Pulse Ox O2 Del Method 97.3 F L 85 16 109/73 97 Room Air 02/29/24 08:22 02/29/24 08:22 02/29/24 08:22 02/29/24 08:22 02/29/24 08:22 02/29/24 08:22 Preop Diagnosis: Nonunion arthrodesis left foot, cruz woodson syndrome Operation Date: 02/29/24 09:25 Proposed Procedures p Hardware Removal deep left foot(Left) - Osbaldo Ramon DPM s Talonavicular Joint Fusion(Left) - Osbaldo Ramon DPM s Naviculocuneiform Fusion(Left) - JC Luque possible 1st Tarsometatarsal Joint Fusion(Left) - Osbaldo Ramon DPM Last intake: Intake Last Liquid Date 02/28/24 Last Liquid Time 23:00 Last Solid Date 02/28/24 Last Solid Time 23:00 Social Tobacco and No alcohol Exam alert, oriented x 3, clear to auscultation bilaterally and regular rate & rhythm Airway Submandibular: within normal limits Cervical ROM: within normal limits Mallampati: Class I Dentition: full Anesthetic Plan ASA status: 3 Anesthesia: General and Regional (specify below) Other: No prior issues with anesthesia NPO since midnight Patient has a history of asthma, controlled with inhalers Current smoker, nicotine and marijuana GERD on Protonix History of trichotillomania Labs 12/22/2023 reviewed chronic steroids, will give stress dose EKG showing sinus tachycardia Plan for general anesthesia with LMA and peripheral nerve block Medications/Allergies Home Medications Medication Instructions Recorded Confirmed Last Taken Type albuterol sulfate 2.5 mg/3 mL 2.5 mg (3 mL) inhalation Q6H #90 mL 01/21/23 02/28/24 02/29/24 Rx (0.083 %) solution for nebulization fluticasone 250 mcg-salmeterol 50 1 inh inhalation BID #60 ea 01/24/23 02/28/24 02/28/24 Rx mcg/dose blistr powdr for inhalation (Advair Diskus) tiotropium bromide 18 mcg capsule 1 cap inhalation DAILY #90 06/21/23 02/28/24 02/29/24 Rx with inhalation device (Spiriva inhalations with HandiHaler) olanzapine 5 mg disintegrating 5 mg PO BID PRN anxiety/agitation 10/14/23 02/28/24 02/28/24 Rx tablet #60 tabs leflunomide 20 mg tablet 20 mg PO DAILY #90 tabs 12/22/23 02/28/24 02/28/24 Rx prednisone 10 mg tablet 10 mg PO DAILY joint pain #90 tabs 12/22/23 02/28/24 02/28/24 Rx sulfasalazine 500 mg tablet 1 g (2 x 500 mg) PO BID #120 tabs 12/22/23 02/28/24 02/28/24 Rx duloxetine 60 mg capsule,delayed 60 mg PO .morning #30 caps 02/02/24 02/28/24 02/29/24 Rx release olanzapine 5 mg tablet (Zyprexa) 5 mg PO BEDTIME #30 tabs 02/02/24 02/28/24 02/28/24 Rx albuterol sulfate 90 mcg/actuation 2 puff inhalation Q6H PRN sob 02/28/24 02/28/24 02/28/24 History aerosol inhaler (Ventolin HFA) pantoprazole 40 mg tablet,delayed 40 mg PO DAILY #30 tabs 02/28/24 02/28/24 02/29/24 Rx release tofacitinib 5 mg tablet (Xeljanz) 5 mg PO BID 02/28/24 02/28/24 02/21/24 History Allergies Allergy/AdvReac Type Severity Reaction Status Date / Time morphine Allergy ADR-Itching Verified 02/29/24 08:08 [facility] Anesthesia Medical History Cannabis use disorder, moderate, in early remission Last use 07/10/23 Trichotillomania started in adult bhakta Nicotine dependence, other tobacco product, uncomplicated Post-traumatic stress disorder, chronic Mixed bipolar II disorder Generalized anxiety disorder Methamphetamine use disorder, mild, in early remission last use 07/10/23 Psychiatric care High risk medication use Osteoarthritis of right knee No pertinent past medical history Denies diabetes, hypertension, seizures, DVT/PE PMD: Dr. Evans Asthma Diagnosed as a child. It is usually with as needed albuterol, Advair --managed by restorative aide Dr. Moya at [facility] Seropositive rheumatoid arthritis of multiple sites Surgical History Status post tubal ligation 02/25/2020----[place] at time of second [place] [facility] [place] showed benign pathology of both tubes H/O section X 2 06/22/2017---primary low transverse [place]. [place] [facility] [place] with breech presentation. ---->single layer closure with no extensions. 02/25/2020--> repeat delivery with total salpingectomy for twin gestation [place] [facility] [place] (~[place]) Left breast-- benign Family History Grandmother Family history of thyroid problem Maternal grandmother Heart disease Maternal grandmother Diabetes Maternal grandmother Grandfather Stroke Maternal granfather Heart disease Maternal grandfather Denies family history of Colon cancer Ovarian cancer Hyperlipidemia Breast cancer Hypertension Uterine cancer Social History Smoking and tobacco/nicotine status: unknown if used tobacco/nicotine Female Reproductive History Para: 3 Spontaneous abortions: No Data Anesthesia Cardiac Studies: No Data to Display
[2024-02-29] MEDS: sodium chloride 0.9% 1,000 ML 30 ML IV (09:01)
--- NOTE | 2024-02-29 09:02 | P.HPUD_ITS ---
Surgery/Procedure H&P Update DATE OF PROCEDURE: February 29, 2024 DATE H&P PERFORMED: 02/17/24 H&P UPDATE INFORMATION: I have reviewed H&P completed within last 30 days, I have examined patient prior to procedure, No changes to prior documentation and H&P is in [facility] [place] EMR on date indicated PREOP DIAGNOSIS: Nonunion arthrodesis left foot, cruz woodson syndrome PLANNED PROCEDURE: Operation Date: 02/29/24 09:25 Proposed Procedures p Hardware Removal deep left foot(Left) - JC Luque Talonavicular Joint Fusion(Left) - JC Luque Naviculocuneiform Fusion(Left) - JC Luque possible 1st Tarsometatarsal Joint Fusion(Left) - Osbaldo Ramon DPM
[2024-02-29] MEDS: gabapentin 300 mg Capsule PO (09:19)
[2024-02-29] MEDS: acetaminophen 1,000 MG/100 ML PIGGYBACK 400 MG IV (09:24)
--- NOTE | 2024-02-29 09:45 | ANES.PROC ---
Anesthesia Procedures Procedure/Date: 02/29/24 Nerve Block ^: Nerve Block 1: Main Anesthesia: general anesthesia Time Out Performed: Yes Consent: requested by attending/covering physician and from patient Nerve block location: popliteal Anesthesia monitors applied: pulse oximetry, EKG, BP cuff and oxygen Nerve block position: supine Anesthetic Used: ropivicaine 0.5% Amount of anesthesia used (mL): 25 Ultrasound used to: recognize landmarks Nerve Stimulator Used?: Yes Interscalene/Femoral BLK: other needle (pjunk) and visualize local anesthetic spread Injection: neg aspiration of heme Patient Tolerated Procedure: well Complications: none Nerve Block 2: Main Anesthesia: general anesthesia Time Out Performed: Yes Consent: requested by attending/covering physician and from patient Nerve block location: adductor canal Anesthesia monitors applied: pulse oximetry, EKG, BP cuff and oxygen Nerve block position: supine Anesthetic Used: ropivicaine 0.5% Amount of anesthesia used (mL): 15 Ultrasound used to: recognize landmarks Nerve Stimulator Used?: No Interscalene/Femoral BLK: other needle (pjunk) and visualize local anesthetic spread Injection: neg aspiration of heme Patient Tolerated Procedure: well Complications: none
[2024-02-29] MEDS: ceFAZolin 2,000 mg SDV 2000 MG IVP (09:54)
--- NOTE | 2024-02-29 12:09 | W.PM.BPON ---
Date of procedure: 02/29/2024 Surgeon name: Dr. Osbaldo Ramon D.P.M. Shaping Machine Operator(s) name(s): Nigel Childers Procedure(s) performed: Hardware removal left ankle, talonavicular joint arthrodesis, naviculocuneiform joint arthrodesis Description of findings: Talonavicular joint arthritis, failed orthopedic hardware Estimated blood loss: 5 cc Tourniquet time: 1 Hour 55 minutes Specimen(s) removed: Orthopedic hardware left foot Post-operative diagnosis: Hardware failure, talonavicular joint arthritis
--- NOTE | 2024-02-29 13:11 | SUR.PHASEII ---
13:10 good capillary refill and ROM of left big toe.
--- NOTE | 2024-02-29 14:15 | ANE.PACU2 ---
Inpatient post-anesthesia follow up: Airway intact: Yes Vital signs: Temperature 97.8 F Pulse Rate 88 Respiratory Rate 16 Blood Pressure 124/68 Pulse Oximetry 94 Oxygen Delivery Me thod Room Air Oxygen Flow Rate Fraction of Inspir ed Oxygen Hydration adequate: Yes Nausea and vomiting: No Pain level: 1 Mental status: Baseline
--- NOTE | 2024-02-29 23:09 | PM.OP ---
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 Hardware removal left ankle CPT 76565 2. Talonavicular joint arthrodesis CPT 81616 3. Naviculocuneiform joint arthrodesis Implants: T plate from [employer] with corresponding locking and nonlocking screws with 4.0 fully threaded headless compression screw from [employer], bone allograft Specimens removed: None Surgeon: Dr. Osbaldo Ramon DPM Human Resources Services Specialist: Nigel Childers Estimated blood loss: 5 cc Tourniquet time: 1 hour 55 minutes Complications: None Patient is a 29-year-old female that has a history of failed talonavicular joint arthrodesis with hardware failure. The patient has had the aforementioned chief complaint for some time. Conservative treatment measures have been attempted and the patient has opted for surgical intervention at this time. A lengthy discussion regarding the procedure, including risks and complications has been had with the patient and is noted in the recent clinic note. Written and verbal consent have been obtained. All patient questions have been answered to the patient?s satisfaction. No written or verbal guarantees have been given or implied. The patient has been NPO since midnight. The history has been reviewed and the history and physical is current. The signed consent was confirmed and placed in the patient chart. Patient imaging has been reviewed and is consistent with the diagnosis. Under mild sedation, the patient was brought into the operating room and placed on the table in the supine position. IV antibiotics were given by the anesthesia team as preoperative surgical prophylaxis. General sedation was then performed by the anesthesiateam. A pneumatic tourniquet was then placed about the left thigh. The patient received a popliteal block by the anesthesia department. The operative extremity was then prepped and draped in the usual fashion. The extremity was then elevated and exsanguinated before the tourniquet was inflated to 325 mmHg. After inflation, the following procedure was then performed. Attention was directed to the medial aspect of the left foot where an 8 cm incision was made along the dorsal medial aspect overlying the talonavicular and naviculocuneiform joints. Dissection was carried down through subcutaneous and superficial fascia. Any bleeders were cauterized as necessary. Vital structures adjacent to the incision site were identified and retracted out of the operative field including medial marginal vein, tibialis anterior tendon and posterior tibial tendon. 15 blade was used to incise the joint capsule of the talonavicular joint and navicular cuneiform joint. The orthopedic hardware from the prior talonavicular joint arthrodesis was visualized and removed from the foot and passed from the operative field. The site was irrigated with copious amounts of sterile saline. Attention was then directed to the talonavicular joint. Using a combination of osteotome and curette and rongeur the talonavicular joint was prepped again for arthrodesis. Attention was then directed to the navicular cuneiform joint. Using a combination of osteotome, curette and rongeur the articular cartilage was removed in preparation for arthrodesis. Both arthrodesis sites were then irrigated with copious amounts of sterile saline. Next, both arthrodesis sites underwent fenestration. Bone allograft, demineralized bone matrix was then inserted into the arthrodesis site of the talonavicular joint and navicular cuneiform joint. Next, 4.0 headless compression screw was driven across the naviculocuneiform and talonavicular joint to compress the joint and provide stabilization. Next a T plate was placed dorsal medially spanning the talonavicular and naviculocuneiform joints. Good positioning of the plate and screws was confirmed on C-arm imaging as well as clinically. The site was again lightly irrigated with sterile saline before attention was directed to closure. Deep tissue was closed with 3-0 Vicryl followed by subcuticular closure with 4-0 Vicryl and skin was closed with 4-0 nylon in horizontal mattress fashion. Tourniquet was let down good hyperemic spots was noted to all digits of the left foot. Incision site was dressed with Xeroform, 4 x 4 gauze, Kerlix, Gold bandage. Patient was placed in cam boot. The patient tolerated the procedure and anesthesia well and without complication. The patient was transported from the operating room to the recovery room with vital signs stable and vascular status intact to all digits of the left foot. The patient was given both written and verbal instructions to remain nonweightbearing to the operative extremity, to keep dressings/splint clean, dry and intact and to take pain medication as directed. The patient will follow-up in the outpatient setting at their scheduled appointment. The patient was discharged with my personal number and was instructed to call if any questions or issues should arise. They were discharged home once anesthesia criteria was met.
== END 2024-02-29 14:15 | disposition home or self-care (01) ==
PROVIDERS: PCP Family Medicine; Visit Provider Podiatrist Foot & Ankle Surgery
PROC: (CPT 20680; principal; 2024-02-29 09:15)
PROC: (CPT 20680; 2024-02-29 09:15)
PROC: (CPT 28740; 2024-02-29 09:15)
PROC: (CPT 28740; 2024-02-29 09:15)
DX: T84.293A Other mechanical complication of internal fixation device of bones of foot and toes, initial encounter (principal); T84.84XA Pain due to internal orthopedic prosthetic devices, implants and grafts, initial encounter; Y82.8 Other medical devices associated with adverse incidents; J45.909 Unspecified asthma, uncomplicated; K21.9 Gastro-esophageal reflux disease without esophagitis; F17.210 Nicotine dependence, cigarettes, uncomplicated; Z79.52 Long term (current) use of systemic steroids; F41.1 Generalized anxiety disorder; M96.0 Pseudarthrosis after fusion or arthrodesis
CPT/HCPCS: 20680; 28730; 73600; 76000; C1713; J0131; J0690; J1200; J1720; J2250; J2405; J2704; J3010; J7030

== ENCOUNTER → 2024-03-28 14:46 | Outpatient (BNVA) | payer BC, SELFPAY ==
[2024-03-23 12:19] VITALS: BP 119/79; BMI 23.5
== END ==
PROVIDERS: PCP Family Medicine; Visit Provider Podiatrist Foot & Ankle Surgery
DX: M79.672 Pain in left foot (principal); T84.84XA Pain due to internal orthopedic prosthetic devices, implants and grafts, initial encounter; Y79.2 Prosthetic and other implants, materials and accessory orthopedic devices associated with adverse incidents; M96.0 Pseudarthrosis after fusion or arthrodesis
CPT/HCPCS: 73630

== ENCOUNTER → 2024-04-18 13:03 | Outpatient (BNVA) | payer BC, MEDICAID, SELFPAY ==
[2024-04-02 08:10] VITALS: BP 119/79; BMI 23.5
== END ==
PROVIDERS: PCP Family Medicine; Visit Provider Podiatrist Foot & Ankle Surgery
DX: M79.672 Pain in left foot (principal); Z98.890 Other specified postprocedural states
CPT/HCPCS: 73630

== ENCOUNTER → 2024-04-30 12:53 | Outpatient (BNVA) | payer BC, MEDICAID, SELFPAY ==
[2024-04-02 08:10] VITALS: BP 119/79; BMI 23.5
== END ==
PROVIDERS: PCP Family Medicine; Visit Provider Podiatrist Foot & Ankle Surgery
DX: M79.672 Pain in left foot (principal)
CPT/HCPCS: 73630

== ENCOUNTER 2024-05-01 19:13 | Observation (INO) | payer BC, MEDICAID, SELFPAY ==
[2024-04-02 08:10] VITALS: BP 119/79; BMI 23.5
[2024-04-23 11:39] LABS: Bilirubin Urine Negative (Negative); Blood Urine Negative (Negative); Glucose Urine UA Negative (Normal); Ketones Urine Negative (Negative); Leukocyte Esterase Urine Negative (Negative); Nitrate Urine Negative (Negative); Protein Urine Negative (Negative); Specific Gravity, Urine 1.018 (1.005-1.030); Urine Appearance Clear (CLEAR); Urine Color Dark Yellow (Yellow); Urobilinogen Urine 0.2 mg/dL (Negative); pH Urine 5.5 (5-7)
[2024-04-23 11:40] LABS: Basophils # 0.1 10^3/uL (0.0-0.1); Eosinophils # 0.3 10^3/uL (0.0-0.8); Eosinophils % 2.8 %; Hematocrit 38.7 % (36-47); Lymphocytes # 2.9 10^3/uL (0.8-4.8); Lymphocytes % 25.8 %; Mean Corpuscular HGB Conc 31.3 g/dL (30-55); Mean Corpuscular Hemoglobin 28.7 pg (27-33); Mean Corpuscular Volume 91.7 fl (85-98); Mean Platelet Volume 9.8 fL (7.4-10.4); Monocytes # 0.9 10^3/uL (0.2-0.9); Monocytes % 8.1 %; Neutrophils # 6.97 10^3/uL (1.8-7.7); Neutrophils % 61.8 %; Nucleated Red Blood Cells % 0 %; Platelet Count 418 10^3/cmm (157-399); Red Blood Count 4.22 10^6/uL (3.85-5.65); Red Cell Distribution Width 14.1 % (12.1-15.1); White Blood Count 11.26 10^3/uL (3.29-11.43)
--- NOTE | 2024-04-23 11:41 | P.ANESASSM_ITS ---
Pre-Anesthetic Assessment Height/Weight: Height 1.68 m Preop Diagnosis: vaginal cyst Operation Date: 05/01/24 09:45 Proposed Procedures p Excision Mass/Lesion/Cyst Vaginal Cyst 59891, N89.8(Not Applicable) - Clive Buenrostro MD Was Beta René taken within 24 hours: N/A Was Clonidine taken within 24 hours: N/A Social Tobacco Vaps Exam alert, oriented x 3, clear to auscultation bilaterally and regular rate & rhythm Airway Submandibular: within normal limits Cervical ROM: within normal limits Mallampati: Class II Dentition: full History/ROS No significant history except as noted and No significant complaints Pulmonary Asthma CV/HEM None reported None reported Hepatic None reported GI Gastroesophageal Reflux Disease Metabolic None reported Musc/skel Rheumatoid Arthritis Neuropsych Anxiety and Bipolar Anesthetic Plan ASA status: 3 Anesthesia: Anesthesia Evaluation and General Risk of > 500 ml blood loss (7ml/kg in children): No Medications/Allergies Home Medications Medication Instructions Recorded Confirmed Last Taken Type fluticasone 250 mcg-salmeterol 50 1 inh inhalation BID #60 ea 01/24/23 04/23/24 04/22/24 Rx mcg/dose blistr powdr for inhalation (Advair Diskus) tiotropium bromide 18 mcg capsule 1 cap inhalation DAILY #90 06/21/23 04/23/24 04/22/24 Rx with inhalation device (Spiriva inhalations with HandiHaler) leflunomide 20 mg tablet 20 mg PO DAILY #90 tabs 12/22/23 04/23/24 04/22/24 Rx prednisone 10 mg tablet 10 mg PO DAILY joint pain #90 tabs 12/22/23 04/23/24 04/23/24 Rx sulfasalazine 500 mg tablet 1 g (2 x 500 mg) PO BID #120 tabs 12/22/23 04/23/24 04/22/24 Rx albuterol sulfate 90 mcg/actuation 2 puff inhalation Q6H PRN sob 02/28/24 04/23/24 02/28/24 History aerosol inhaler (Ventolin HFA) pantoprazole 40 mg tablet,delayed 40 mg PO DAILY #30 tabs 02/28/24 04/23/24 04/22/24 Rx release tofacitinib 5 mg tablet (Xeljanz) 5 mg PO BID 02/28/24 04/23/24 04/22/24 History duloxetine 60 mg capsule,delayed 60 mg PO .morning #30 caps 04/10/24 04/23/24 04/23/24 Rx release olanzapine 5 mg tablet (Zyprexa) 5 mg PO BEDTIME #30 tabs 04/10/24 04/23/24 04/22/24 Rx albuterol sulfate 2.5 mg/3 mL 2.5 mg inhalation Q6H PRN 04/23/24 04/23/24 04/22/24 History (0.083 %) solution for nebulization Shortness Of Breath Or Wheezing Allergies Allergy/AdvReac Type Severity Reaction Status Date / Time morphine Allergy ADR-Itching Verified 04/23/24 08:29 [facility] Anesthesia Medical History Cannabis use disorder, moderate, in early remission Last use 07/10/23 Trichotillomania started in adult bhakta Nicotine dependence, other tobacco product, uncomplicated Post-traumatic stress disorder, chronic Mixed bipolar II disorder Generalized anxiety disorder Methamphetamine use disorder, mild, in early remission last use 07/10/23 Psychiatric care High risk medication use Osteoarthritis of right knee No pertinent past medical history Denies diabetes, hypertension, seizures, DVT/PE PMD: Dr. Evans Asthma Diagnosed as a child. It is usually with as needed albuterol, Advair --managed by building architectural designer Dr. Moya at [facility] [place] Seropositive rheumatoid arthritis of multiple sites Surgical History Status post tubal ligation 02/25/2020----total salpingectomy at time of second performed by Dr. Muñoz at [facility] [place]. Pathology showed benign pathology of both tubes H/O section X 2 06/22/2017---primary low transverse delivery by Dr. Muñoz at [facility] [place] PROM with breech presentation. ---->single layer closure with no extensions. 02/25/2020--> repeat delivery with total salpingectomy for twin gestation by Dr. muñoz at [facility] [place] H/O lumpectomy (~2010) Left breast-- benign Family History Grandmother Family history of thyroid problem Maternal grandmother Heart disease Maternal grandmother Diabetes Maternal grandmother Grandfather Stroke Maternal granfather Heart disease Maternal grandfather Denies family history of Colon cancer Ovarian cancer Hyperlipidemia Breast cancer Hypertension Uterine cancer Social History Smoking and tobacco/nicotine status: unknown if used tobacco/nicotine Female Reproductive History Date of last menstrual period: 04/23/24 Para: 3 Spontaneous abortions: No Data Anesthesia 04/23/24 11:29 04/23/24 11:29 Short CBC 04/23/24 Range/Units 11:29 WBC 11.26 (3.29-11.43) 10^3/uL Hgb 12.10 (11.27-16.99) g/dL Hct 38.7 (36-47) % MCV 91.7 (85-98) fl Plt Count 418 H (157-399) 10^3/cmm Neut % (Auto) 61.8 % Neut # (Auto) 6.97 (1.8-7.7) 10^3/uL Urine 04/23/24 Range/Units 11:14 Urine Color Dark yellow A (Yellow) Urine Appearance Clear (CLEAR) Urine pH 5.5 (5-7) Ur Specific [place] 1.018 (1.005-1.030) Urine Protein Negative (Negative) Urine Glucose (UA) Negative (Normal) Urine Ketones Negative (Negative) Urine Nitrate Negative (Negative) Urine Bilirubin Negative (Negative) Ur Leukocyte Esterase Negative (Negative) Cardiac Studies: 2 No Data to Display
[2024-04-23 11:47] LABS: Add Urine Microscopic? YES; Bacteria Urine None Seen /hpf; Hyaline Casts Urine 0-4 /lpf; RBC Urine 0-2 /hpf (0-2); Squamous Epithelial Cell Urine 0-5 /hpf (0-5); WBC Urine 0-5 /hpf (0-5)
[2024-04-23 12:01] LABS: Alanine Aminotransferase 22 U/L (0-33); Albumin Level 3.9 g/dL (3.5-5.2); Alkaline Phosphatase 110 U/L (35-105); Anion Gap 12.5 (5-19); Aspartate Amino Transferase 14 U/L (0-32); Blood Urea Nitrogen 12 mg/dL (6-20); Calcium 8.6 mg/dL (8.5-10.5); Carbon Dioxide 25 mmol/L (22-29); Chloride 106 mmol/L (98-107); Globulin 2.2 g/dL (1.3-4.6); Glomerular Filtration Rate 98.3 mL/min (90-130); Glucose 108 mg/dL (65-115); Osmolality Calculated 290 mOsm/kg (285-295); Potassium 3.5 mmol/L (3.5-5.1); Sodium 140 mmol/L (136-145); Total Bilirubin 0.2 mg/dL (0.15-1.2); Total Protein 6.1 g/dL (6.6-8.7)
[2024-05-01] VITALS (16 sets, daily range): BP systolic 94–115; BP diastolic 59–86; PULSE 72–97; RESP 14–32; TEMP 36.1–36.4; O2SAT 92–98; BMI 27.4
[2024-05-01] MEDS: scopolamine 1.5 Patch 1 PATCH TRANSDERMA (11:16)
[2024-05-01] MEDS: sodium chloride 0.9% 500 ML IV (11:17)
[2024-05-01 11:21] LABS: OR HCG Qualitative Urine Negative (Negative)
--- NOTE | 2024-05-01 14:37 | P.ANESUD_ITS ---
Pre-Anesthetic Update Pre-Anesthetic Assessment: Date of Surgery/Procedure: 05/01/24 Preop Nicky gnosis: vaginal cyst Proposed Procedure: Operation Date: 05/01/24 15:10 Proposed Procedures p Excision Mass/Lesion/Cyst Vaginal Cyst 22983, N89.8(Not Applicable) - Clive Buenrostro MD Any changes to Pre-Anesthetic Assessment?: No Last Intake: Intake Last Liquid Date 04/30/24 Last Liquid Time 22:00 Last Solid Date 04/30/24 Last Solid Time 22:00 Labs Last 48hrs: Blood Bank 05/01/24 10:35 Blood Type O Positive Rho(D) Type Rh positive Antibody Screen Negative Vitals: Temperature 97.1 F L 05/01/24 10:32 Temperature Source Temporal Artery S can 05/01/24 10:32 Pulse Rate 97 05/01/24 10:32 Respiratory Rate 17 05/01/24 10:32 Blood Pressure 113/86 05/01/24 10:32 Blood Pressure Magali n 95 05/01/24 10:32 Pulse Oximetry 96 05/01/24 10:32 Oxygen Delivery Me thod Room Air 05/01/24 10:32 Exam: Pre-Anes Outpt Exam: alert, oriented x 3, clear to auscultation bilaterally and regular rate & rhythm Cardiac Studies: No Data to Display
[2024-05-01] MEDS: acetaminophen 500 mg Tablet PO (14:55)
[2024-05-01] MEDS: sodium chloride 0.9% 1,000 ML 30 ML IV (14:56)
--- NOTE | 2024-05-01 15:19 | W.PM.OPSUD ---
Surgery/Procedure H&P Update DATE OF PROCEDURE: May 01, 2024 DATE H&P PERFORMED: 04/23/24 H&P UPDATE INFORMATION: I have reviewed H&P completed within last 30 days, I have examined patient prior to procedure and No changes to prior documentation PREOP DIAGNOSIS: vaginal cyst PLANNED PROCEDURE: Operation Date: 05/01/24 15:10 Proposed Procedures p Excision Mass/Lesion/Cyst Vaginal Cyst 51878, N89.8(Not Applicable) - Clive Buenrostro MD
[2024-05-01] MEDS: ceFAZolin 2,000 mg SDV 2000 MG IVP (16:47)
[2024-05-01] MEDS: lidocaine-epi 1% PF 1:200,000 30 mL SDV INJECTION (17:26)
[2024-05-01] MEDS: tranexamic acid 1,000 mg/10mL SDV 1000 MG IV (17:51)
--- NOTE | 2024-05-01 18:12 | P.OP_ITS ---
Operative Report Date of procedure: May 01, 2024 Pre-op diagnosis: Vaginal cyst/abscess Post-op diagnosis: same Procedure done: Excision vaginal abcess Specimens removed/disposition: Vaginal cystic mass. Pathology: Vaginal abcess vs Phylicia gland abcess Surgeon: Clive Buenrostro MD Estimated blood loss (mL): 600 IV fluids (mL): 1,500 Complications: Bleeding Findings: vaginal abcess Procedure: After a bimanual examination to determine the extent of the vaginal cyst. The patient was placed in dorsal lithothomy position. She was then prep and draped in normal sterile fashion. The labia were retracted with the L[place] Start retractor and the introitus of the Vagina was exposed. An incision was made over the mucosa of the vagina over the cystic mass down to the wall of themass at right side. The wall of the mass was incised and the content of the cyst hilton cuated small amount of liquor puris. A culture was taken. Then the enlarged mass was grasped with Allis clamps. A small Metzenbaum scissors is used to lyse the filmy adhesions between the wall of the cystic mass and the overlying vaginal mucosa and subcutaneous tissue of the vagina. An Allis clamp is placed on the wall of the cyst. The wall is retracted to allow adequate dissection and identification of the blood supply to the mass from branches of the pudendal artery. The last few filmy adhesions to the gland are incised with Metzenbaum scissors, and the cystic mass is removed. Care was taken to meticulous hemostasis throughout the bed of the cystic mass/gland with electrocoagulation and suture ligation. The bed of the cistic mass closed with interrupted 3-0 absorbable suture to eliminate space. The closure of the vaginal mucosa is close with interrupted 3-0 Vicryl suture. Sponge, lap, needle, and instrument counts were correct times three. The patient was taken to the recovery room, awake and in stable condition.
[2024-05-01] MEDS: fentaNYL 50 mcg/mL INJ 2mL IVP (18:36)
[2024-05-01] MEDS: ondansetron 2 mg/ML SDV 2 mL 4 MG IVP (19:00)
--- NOTE | 2024-05-01 19:15 | ANE.PACU2 ---
Inpatient post-anesthesia follow up: Airway intact: Yes Vital signs: Temperature 97.6 F Pulse Rate 100 Respiratory Rate 16 Blood Pressure 94/64 Pulse Oximetry 97 Oxygen Delivery Me thod Room Air Oxygen Flow Rate 2 Fraction of Inspir ed Oxygen Hydration adequate: Yes Nausea and vomiting: No Pain level: 1 Mental status: Baseline
--- NOTE | 2024-05-01 19:22 | PC.NURSE ---
1916 - Accepted Aliya - BP 89/57 map 67 - pulse 76 - 93% temp 97.5
[2024-05-01] MEDS: dextrose 5%-lactated ringers 1,000 ML 125 ML IV (19:54)
[2024-05-01] MEDS: ketorolac 30 mg/mL INJ IVP (19:55)
[2024-05-01] MEDS: sulfaSALAzine 500 mg Tablet 1000 MG PO (19:55)
[2024-05-01] MEDS: OLANZapine 5 mg TABLET PO (19:55)
[2024-05-01] MEDS: docusate sodium 100 mg Capsule PO (19:55)
[2024-05-01] MEDS: HYDROcodone-acetaminophen 5-325 mg Tablet PO (21:11)
[2024-05-01 22:15] LABS: Hematocrit 29.2 % (36-47)
[2024-05-01] MEDS: albuterol 2.5 mg/3 mL Neb INHALATION (22:37)
[2024-05-01] MEDS: budesonide 0.5 mg/2 mL Neb INHALATION (22:37)
[2024-05-02 00:15] VITALS: BP 102/60; PULSE 108; RESP 16; TEMP 36.8; O2SAT 95
[2024-05-02] MEDS: ketorolac 30 mg/mL INJ IVP ×2 (01:50→08:17)
[2024-05-02 03:50] VITALS: PULSE 70; RESP 16; O2SAT 96
[2024-05-02] MEDS: albuterol 2.5 mg/3 mL Neb INHALATION (03:50)
[2024-05-02] MEDS: dextrose 5%-lactated ringers 1,000 ML 125 ML IV (03:51)
[2024-05-02 04:24] VITALS: BP 100/54; PULSE 84; RESP 17; TEMP 36.8; O2SAT 95
[2024-05-02 06:57] LABS: Hematocrit 27.1 % (36-47); Mean Corpuscular Volume 93.4 fl (85-98); Mean Platelet Volume 9.6 fL (7.4-10.4); Platelet Count 355 10^3/cmm (157-399); Red Cell Distribution Width 14.9 % (12.1-15.1); White Blood Count 12.46 10^3/uL (3.29-11.43)
[2024-05-02 07:25] VITALS: BP 94/64; PULSE 83; RESP 17; TEMP 36.4; O2SAT 98
[2024-05-02] MEDS: HYDROcodone-acetaminophen 5-325 mg Tablet PO (08:17)
[2024-05-02] MEDS: sulfaSALAzine 500 mg Tablet 1000 MG PO (08:17)
[2024-05-02] MEDS: duloxetine 60 mg Capsule PO (08:17)
[2024-05-02] MEDS: predniSONE 10 mg Tablet PO (08:17)
[2024-05-02] MEDS: docusate sodium 100 mg Capsule PO (08:17)
[2024-05-02] MEDS: pantoprazole DR 40 mg Tablet PO (08:17)
[2024-05-02 08:40] VITALS: PULSE 100; RESP 16; O2SAT 97
--- NOTE | 2024-05-02 09:56 | PC.CHAP ---
Pastoral Care Encounter/Spiritual Assessment Type of Contact [] Declined cable lacer visit [] Patient/Family/Request visit [] Outpatient visit [] Follow-up visit [] Physician referral [] Code/Alert [x] Routine visit [] Staff referral [] Actively dying [] Patient sleeping [] Family support [] [] Out of room [] Palliative care [] [] Receiving care in room [] Pre-surgical visit [] Trauma [] Long length of stay [] ICU visit [] Other: Relational/Emotional Strength [x] Patient feels connected with others/family/visitors/staff [] Distress [] Loneliness/isolation [] Abandonment Spirituality of Patient [x] Person of Ariadna [] Attends Synagogue of their Ariadna [x] Believes in Prayer [] Reads Bible or Jain materials [] There are Spiritual issues to be addressed [employer] Hand Interventions [x] Prayer [x] Active listening [] Non-anxious presence [x] Spiritual/emotional support [] Crisis/trauma care [] Spiritual counseling [] Bereavement support [] Provided bereavement packet [] Provided Bible/devotional materials [] Provided toy/stuffed animal, coloring book to patient or family member [] Provided Communion [] Anointing/Rankin [] Salvation [x Completed spiritual assessment [] Other: Impact on Illness or Injury [] Angry [] Fearful [] Anxious [] Often cries [] Exhaustion [] Unable to work [] Unable to attend buddhist [] Unable to walk/stand [] Unable to read [] Unable to drive [] Unable to eat/drink [] Unable to sleep [] Unable to be with family [] Patient intubated [] Other: Summary Time spent with patient 5 min
--- NOTE | 2024-05-02 10:32 | PM.OBGYDC ---
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 Gaston 29-year-old female with a history of right side vaginal cystic mass for 8 year. She was admitted for vaginal cyst/mass excision. The procedure was performed and complicated by bleeding. She was admitted for observation overnight. Overnight observation was uneventful. She is afebrile and hemodynamically stable. Tolerating diet well. Ambulating without difficulty. She was counseled regarding pelvic rest for 6 weeks (no sex, no tampons, no vaginal douches). Return to the emergency room if any fever, increased bleeding or pain. Physical Exam Narrative: GA: Alert and oriented ?3. HEENT: WNL. Heart: Regular rate and rhythm. Lungs: Clear to auscultation bilaterally. Abdomen: Bowel sounds present, nontender. BUSINESS SUPPORT PROFESSIONAL: spotting bleeding. Extremities: No edema, no cyanosis, no calves pain. History History History 3 Term 2 0 Miscarriages/Ectopic 1 Living Children 3 Discharge Data Studies Completed and Pending Pending at discharge Category Date Time Status Pathology: Surgical [PTH] Routine Pth 05/01/24 18:25 Received Laboratory Results WBC 12.46 10^3/uL (3.29-11.43) H 05/02/24 06:43 RBC 2.90 10^6/uL (3.85-5.65) L 05/02/24 06:43 Hgb 8.40 g/dL (11.27-16.99) L 05/02/24 06:43 Hct 27.1 % (36-47) L 05/02/24 06:43 MCV 93.4 fl (85-98) 05/02/24 06:43 MCH 29.0 pg (27-33) 05/02/24 06:43 MCHC 31.0 g/dL (30-55) 05/02/24 06:43 RDW 14.9 % (12.1-15.1) 05/02/24 06:43 Plt Count 355 10^3/cmm (157-399) 05/02/24 06:43 MPV 9.6 fL (7.4-10.4) 05/02/24 06:43 Neut % (Auto) 61.8 % 04/23/24 11:29 Lymph % (Auto) 25.8 % 04/23/24 11:29 Dixon % (Auto) 8.1 % 04/23/24 11:29 Eos % (Auto) 2.8 % 04/23/24 11:29 Baso % (Auto) 1.0 % 04/23/24 11:29 Neut # (Auto) 6.97 10^3/uL (1.8-7.7) 04/23/24 11:29 Lymph # (Auto) 2.9 10^3/uL (0.8-4.8) 04/23/24 11:29 Dixon # (Auto) 0.9 10^3/uL (0.2-0.9) 04/23/24 11:29 Eos # (Auto) 0.3 10^3/uL (0.0-0.8) 04/23/24 11:29 Baso # (Auto) 0.1 10^3/uL (0.0-0.1) 04/23/24 11:29 Nucleated RBC % (auto) 0 % 04/23/24 11:29 Nucleated RBCs # 0.0 /100WBC 04/23/24 11:29 Sodium 140 mmol/L (136-145) 04/23/24 11:29 Potassium 3.5 mmol/L (3.5-5.1) 04/23/24 11:29 Chloride 106 mmol/L (98-107) 04/23/24 11:29 Carbon Dioxide 25 mmol/L (22-29) 04/23/24 11:29 Anion Gap 12.5 (5-19) 04/23/24 11:29 BUN 12 mg/dL (6-20) 04/23/24 11:29 Creatinine 0.7 mg/dL (0.5-0.9) 04/23/24 11:29 GFR Calculation 98.3 mL/min (90-130) 04/23/24 11:29 Glucose 108 mg/dL (65-115) 04/23/24 11:29 Calculated Osmolality 290 mOsm/kg (285-295) 04/23/24 11:29 Calcium 8.6 mg/dL (8.5-10.5) 04/23/24 11: Total Bilirubin 0.2 mg/dL (0.15-1.2) 04/23/24 11:29 AST 14 U/L (0-32) 04/23/24 11:29 ALT 22 U/L (0-33) 04/23/24 11:29 Alkaline Phosphatase 110 U/L (35-105) H 04/23/24 11:29 Total Protein 6.1 g/dL (6.6-8.7) L 04/23/24 11:29 Albumin 3.9 g/dL (3.5-5.2) 04/23/24 11:29 Globulin 2.2 g/dL (1.3-4.6) 04/23/24 11:29 Urine Color Dark yellow (Yellow) A 04/23/24 11:14 Urine Appearance Clear (CLEAR) 04/23/24 11:14 Urine pH 5.5 (5-7) 04/23/24 11:14 Ur Specific [place] 1.018 (1.005-1.030) 04/23/24 11:14 Urine Protein Negative (Negative) 04/23/24 11:14 Urine Glucose (UA) Negative (Normal) 04/23/24 11:14 Urine Ketones Negative (Negative) 04/23/24 11:14 Urine Blood Negative (Negative) 04/23/24 11:14 Urine Nitrate Negative (Negative) 04/23/24 11:14 Urine Bilirubin Negative (Negative) 04/23/24 11:14 Urine Urobilinogen 0.2 mg/dL (Negative) 04/23/24 11:14 Ur Leukocyte Esterase Negative (Negative) 04/23/24 11:14 Urine RBC 0-2 /hpf (0-2) 04/23/24 11:14 Urine WBC 0-5 /hpf (0-5) 04/23/24 11:14 Ur Squamous Epith Cells 0-5 /hpf (0-5) 04/23/24 11:14 Amorphous Sediment Not Reportable 04/23/24 11:14 Urine Bacteria None seen /hpf (NONE) 04/23/24 11:14 Hyaline Casts 0-4 /lpf H 04/23/24 11:14 Urine HCG, Qual Negative (Negative) 05/01/24 10:25 Blood Type O Positive 05/01/24 10:35 Rho(D) Type Rh positive 05/01/24 10:35 Antibody Screen Negative 05/01/24 10:35 Vitals Last Vital Signs Temp 97.6 F 05/02/24 07:25 Pulse 100 05/02/24 08:40 Resp 16 05/02/24 08:40 BP 94/64 05/02/24 07:25 Pulse Ox 97 05/02/24 08:40 O2 Del Method Room Air 05/02/24 08:40 O2 Flow Rate 2 05/01/24 20:58 Results Labs OB ([facility]): Blood Type O Positive 05/01/24 Antibody Screen Negative 05/01/24 Hct 27.1 % (36-47) L 05/02/24 Hgb 8.40 g/dL (11.27-16.99) L 05/02/24 Rho(D) Type Rh positive 05/01/24 Plt Count 355 10^3/cmm (157-399) 05/02/24 Hep Bs Antigen Non-reactive (Nonreactive) 08/31/23 Hep B Core Total Ab Non-reactive (Nonreactive) 08/31/23 Hep Bs Antibody < 3.5 (11.5-1000) L 08/31/23 Hepatitis C Antibody Non-reactive (Nonreactive) 08/31/23 TSH 1.34 uIU/mL (0.27-4.20) 05/11/23 Free T4 1.11 ng/dL (0.82-1.77) 04/27/23 Hemoglobin A1c 3.9 % (4.0-6.0) L 07/06/23 HCG, Qual Negative (Negative) 08/18/23 Urine Opiates Screen Negative ng/mL (Negative) 05/11/23 Ur Barbiturates Screen Negative ng/mL (Negative) 05/11/23 Ur Phencyclidine Scrn Negative ng/mL (Negative) 05/11/23 Ur Amphetamines Screen Positive ng/mL (Negative) H 05/11/23 U Benzodiazepines Scrn Negative ng/mL (Negative) 05/11/23 Urine Cocaine Screen Negative ng/mL (Negative) 05/11/23 U Marijuana (THC) Screen Positive ng/mL (Negative) H 05/11/23 Micro Urine Specimen 12/17/22 Pap Smear Interpret See note A 11/15/23 Discharge Plan Discharge Patient Disposition: Home Condition: Stable Prescriptions: New hydrocodone-acetaminophen 5-325 mg tablet 1 tab PO Q4H PRN (Reason: pain) Qty: 20 0RF acetaminophen 325 mg capsule 325 mg PO Q4H PRN (Reason: fever or pain) Qty: 60 0RF docusate sodium [Colace] 100 mg capsule 100 mg PO BID Qty: 60 0RF ibuprofen 800 mg tablet 800 mg PO TID PRN (Reason: pain) Qty: 60 0RF acetaminophen 325 mg capsule 325 mg PO Q4H PRN (Reason: fever or pain) Qty: 60 0RF ferrous sulfate [Iron (ferrous sulfate)] 325 mg (65 mg iron) tablet 325 mg PO BID Qty: 60 0RF ibuprofen 800 mg tablet 800 mg PO TID PRN (Reason: pain) Qty: 60 0RF Continued prednisone 10 mg tablet 10 mg PO DAILY Qty: 90 1RF sulfasalazine 500 mg tablet 1 g PO BID Qty: 120 5RF Rx Instructions: give with food (meal/snack) leflunomide 20 mg tablet 20 mg PO DAILY Qty: 90 1RF duloxetine 60 mg capsule,delayed release(DR/EC) 60 mg PO .morning Qty: 30 3RF Rx Instructions: Take one capsule every morning olanzapine [Zyprexa] 5 mg tablet 5 mg PO BEDTIME Qty: 30 3RF Rx Instructions: Take one tablet at bedtime fluticasone propion-salmeterol [Advair Diskus] 250-50 mcg/dose blister with device 1 inh inhalation BID Qty: 60 4RF Spiriva with HandiHaler 18 mcg capsule, w/inhalation device 1 cap inhalation DAILY Qty: 90 4RF Rx Instructions: puncture 1 cap using device; one dose = 2 inhalations pantoprazole 40 mg tablet,delayed release (DR/EC) 40 mg PO DAILY Qty: 30 3RF albuterol sulfate 2.5 mg /3 mL (0.083 %) solution for nebulization 2.5 mg inhalation Q6H PRN (Reason: Shortness Of Breath Or Wheezing) albuterol sulfate [Ventolin HFA] 90 mcg/actuation HFA aerosol inhaler 2 puff inhalation Q6H PRN (Reason: sob) Rx Instructions: INHALE TWO PUFFS EVERY 6 HOURS NEEDED FOR SHORTNESS OF BREATH or wheezing Xeljanz 5 mg tablet 5 mg PO BID Rx Instructions: TAKE ONE TABLET BY MOUTH TWICE DAILY Discharge Orders: Discharge Order (Routine); Ordered 05/02/24 Ordered By: Clive Buenrostro Referrals: Clive Buenrostro MD [Physician] - 1 week Discharge Diet: Usual diet Discharge Activity: Limit activity as instructed Patient Instructions: Acute Wound Care (DC), Post Anesthesia Care Activity Restrictions/Additional Instructions: 1. Please call [facility] on next working day to make your post-operative appointment in 2 weeks. 2. Please stay home until you come back to the clinic on first post-hospatilization check up. 3. Please follow instructions on your medications CAREFULLY. 4. If you have abdominal incision, do not cover it unless dressing is necessary because of drainage. OK to shower, but avoid bath. Leave steri-strips until they fall off. If they are still on one week after surgery, you may remove them. 5. If you had vaginal surgery or vaginal repair, Dr. Buenrostro may instruct you to take SITZ bath. 6. Yellow, blood tinged odorous vaginal discharge is usually normal after hysterectomy or vaginal surgeries. 7. No SEXUAL INTERCOURSE, tampons, or douches until you are completely released from the post-operative care. 8. Avoid constipation by eating right and maybe using some Metamucil or Milk of Magnesia. 9. All prescription refills are given during the working hours. Please do no wait till it runs out. Call the clinic at [phone] before your medication runs out. The clinic will get in touch with your doctor to prescribe medications if necessary. 10. Please remain within 40 mile radius from our hospital because emergencies do happen now and then during the post-operative period. 11. If you have stairs at home, take one step at a time slowly and minimize the number of trips. It helps to stay in one floor for the next few days. No lifting except what you can lift by one hand until you are released from the post-operative care. 12. Driving is discouraged until you are well healed. It may be 3-4 weeks before you feel strong enough to drive. You should be able to turn and look through the rear window without pain and you should be able to push the brake pedal very hard without pain before you drive. No fast rules, but SAFETY should be your primary concern. DO NOT drive if you are on sedating medications such as narcotics. 13. Call the clinic (during working hours) to make urgent appointment or go to the Emergency room, if any of the following occurs: i. Vaginal bleeding becomes heavy, more than a period. ii. Incision becomes red and sore, or drains pus. iii. Your TEMPERATURE is over 100.4F or you have chill. iv. IV site becomes red and swollen (a little ``knot?? is usually OK) v. Persistent nausea and vomiting vi. Persistent constipation or diarrhea vii. Rash or allergic reaction to medications. Discharge Attestations THERMAL CUTTER HELPER Time Spent in Discharge Care*: greater than 30 min Coding Level of Care Code Acute Code for Chg Fwd
[2024-05-02 10:43] VITALS: BP 94/64; PULSE 83; RESP 17; TEMP 36.4; O2SAT 98
--- NOTE | 2024-05-02 10:50 | PC.NURSE ---
Discharge Note Patient discharged to home via private vehicle accompanied by . Discharge instructions reviewed with patient and/or human resources representative. Mobile pharmacy medications and/or prescriptions provided. Belongings/home medications returned.
== END 2024-05-02 11:39 | disposition home or self-care (01) ==
LOC: MEDSURG 19:14
PROVIDERS: Anesthesiology; Admitting Provider Obstetrics & Gynecology; PCP Family Medicine; Visit Provider Obstetrics & Gynecology
PROC: (CPT 57135; principal; 2024-05-01 15:00)
DX: N89.8 Other specified noninflammatory disorders of vagina (principal); J45.909 Unspecified asthma, uncomplicated; K21.9 Gastro-esophageal reflux disease without esophagitis; F41.1 Generalized anxiety disorder; M05.8A Other rheumatoid arthritis with rheumatoid factor of other specified site
CPT/HCPCS: 57135; 36415; 80053; 81001; 81025; 85014; 85018; 85025; 85027; 86850; 86900; 88304; 94640; G0378; J0131; J0690; J1100; J1885; J2250; J2405; J2704; J3010; J7030; J7040; J7121; J7512; J7613; J7626

== ENCOUNTER → 2024-05-15 16:09 | Outpatient (BNVA) | payer BC, SELFPAY ==
[2024-04-02 08:10] VITALS: BP 119/79; BMI 23.5
== END ==
PROVIDERS: PCP Family Medicine; Visit Provider Podiatrist Foot & Ankle Surgery
DX: M79.672 Pain in left foot (principal); Z98.890 Other specified postprocedural states
CPT/HCPCS: 73630

== ENCOUNTER → 2024-07-13 14:42 | Outpatient (BNVA) | payer BC, SELFPAY ==
[2024-04-02 08:10] VITALS: BP 119/79; BMI 23.5
== END ==
PROVIDERS: PCP Family Medicine; Visit Provider Nurse Practitioner Family
DX: R50.9 Fever, unspecified (principal)
CPT/HCPCS: 87071; 87400; 87426; 87880

== ENCOUNTER → 2024-07-23 15:30 | Outpatient (BNVA) | payer BC, SELFPAY ==
[2024-04-02 08:10] VITALS: BP 119/79; BMI 23.5
== END ==
PROVIDERS: PCP Family Medicine; Visit Provider Family Medicine
DX: M05.79 Rheumatoid arthritis with rheumatoid factor of multiple sites without organ or systems involvement (principal); N63.20 Unspecified lump in the left breast, unspecified quadrant; R59.1 Generalized enlarged lymph nodes; Z79.899 Other long term (current) drug therapy; R79.89 Other specified abnormal findings of blood chemistry; D64.9 Anemia, unspecified
CPT/HCPCS: 80053; 80061; 82607; 82728; 82746; 83550; 84439; 84443; 85025; 85651; 86140

== ENCOUNTER 2024-07-27 11:59 | Outpatient (CLI) | payer BC, MEDICAID, SELFPAY ==
[2024-04-02 08:10] VITALS: BP 119/79; BMI 23.5
--- NOTE | 2024-07-27 12:00 | CT_ITS ---
WS: [id number] CT chest w con* [id number] HISTORY: R22.30 - Localized swelling, mass and lump, unspecified u... TECHNIQUE: Axial imaging performed through the thorax. Coronal and sagittal reformats are submitted. All CT scans at [facility] use at least one of these dose optimization techniques: automated exposure control; mA and/or kV adjustment per patient size (includes targeted exams where dose is matched to clinical indication); or iterative reconstruction. CONTRAST: Omnipaque 350; 100 mL IV. DLP: 320.06 mGy.cm COMPARISON: None available. Lungs and central airway: Normal. Pleura: Normal. No pleural effusion. Heart and pericardium: Normal size heart with no pericardial effusion. Mediastinum and nathan: No mediastinum or hilar adenopathy. Vessels: Normal size aortic and pulmonary artery. No coronary artery calcifications. LEFT vertebral artery arises directly from the aorta. Chest wall and lower neck: Focal inflammatory mass with thick wall and enhancement in the RIGHT axilla. This corresponds to the palpable abnormality. Mass measures 3.0 x 1.9 cm with central necrosis. There is adjacent soft tissue inflammation and stranding. There are a few additional small lymph nodes. This inflammatory mass extends to involve the dermis and subcutaneous soft tissue. Upper abdomen: Focal fatty sparing along the falciform ligament. Osseous structures: No destructive process. CT/CT chest w con* [id number] IMPRESSION: 1. Inflammatory mass with thick wall and necrotic center in the RIGHT axilla m easures 3.0 x 1.9 cm. This corresponds to the palpable abnormality. Favor this is most likely an epidermoid cyst/sebaceous cyst which has become infected. Not typical for hidradenitis suppurativa. Differential does include abnormal lymph node. Close follow-up with antibiotics. Percutaneous biopsy is not typically p erformed for epidermoid or sebaceous cyst. 2. If the infection does not resolve with antibiotics surgical excision may be necessary as these can be difficult to treat. 3. The remaining chest CT is negative.
[2024-07-27] MEDS: iohexol 350 mg/mL 500 mL Btl (per mL) IV (12:24)
== END 2024-07-27 12:00 | disposition home or self-care (01) ==
LOC: RAD 12:01
PROVIDERS: PCP Family Medicine; Visit Provider Family Medicine
DX: N63.31 Unspecified lump in axillary tail of the right breast (principal); R93.5 Abnormal findings on diagnostic imaging of other abdominal regions, including retroperitoneum; R59.0 Localized enlarged lymph nodes
CPT/HCPCS: 71260

== ENCOUNTER → 2024-08-24 10:14 | Outpatient (BNVA) | payer OTHER, SELFPAY ==
[2024-04-02 08:10] VITALS: BP 119/79; BMI 23.5
== END ==
PROVIDERS: PCP Family Medicine; Visit Provider Nurse Practitioner Psychiatric/Mental Health
DX: F41.1 Generalized anxiety disorder (principal); F33.1 Major depressive disorder, recurrent, moderate; Z79.899 Other long term (current) drug therapy
CPT/HCPCS: 80061; 83036

== ENCOUNTER 2025-03-19 13:47 | Emergency (ER) | payer BC, MEDICAID, SELFPAY ==
[2024-08-27 16:00] VITALS: BP 130/88; BMI 28.5
[2025-03-19 13:50] VITALS: BP 132/88; PULSE 95; TEMP 36.8; O2SAT 99; BMI 26.9
--- NOTE | 2025-03-19 14:53 | XR_ITS ---
WS: [id number] Left foot, 4 views, 03/19/2025 Clinical Data: pain Comparison: Left foot, 05/15/2024 Findings: The long orthopedic screw has retreated from its location. The screw did and in the talonavicular articulation but now its proximal portion is bulging the skin and the distal portion of the screw resides only in the first cuneiform. The medial plate crossing the articulation between the talus, navicular and medial cuneiform remains in the same position fixed with small orthopedic screws. 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 XR/XR foot LT min 3V* [id number] Impression: 1. Movement of long orthopedic screw such that its proximal portion now bulges the medial skin of the left foot. 2. No change in medial plate extending from the talus to the first cuneiform. 3. No change in sclerosis of tarsal navicular.
[2025-03-19 14:57] VITALS: BP 121/78; PULSE 92; RESP 16; O2SAT 98
[2025-03-19 15:00] VITALS: PULSE 90; RESP 16; O2SAT 99
--- NOTE | 2025-03-19 15:09 | CTR_ITS ---
PROCEDURE INFORMATION: Exam: CT Head Without Contrast Exam date and time: 03/19/2025 3:39 PM Age: 30 years old Clinical indication: Speech disturbance; Slurred speech; New onset slurred speech x3 days wo trauma. TECHNIQUE: Imaging protocol: Computed tomography of the head without contrast. Axial, coronal and sagittal reformatted images were created and reviewed. Radiation optimization: All CT scans at this facility use at least one of these dose optimization techniques: automated exposure control; mA and/or kV adjustment per patient size (includes targeted exams where dose is matched to clinical indication); or iterative reconstruction. COMPARISON: No relevant prior studies available. RADIATION DOSE METRICS: Total DLP (mGy-cm): 1093.44 FINDINGS: Brain: No CT evidence of acute intracranial hemorrhage or acute territorial infarction. No significant mass effect or midline shift. Basal cisterns patent. Cerebral ventricles: Normal in size and configuration. Paranasal sinuses: Unremarkable. No fluid levels. Mastoid air cells: Grossly unremarkable. Bones: Unremarkable. No acute fracture. Soft tissues: Grossly unremarkable. CT/CT head wo con* [id number] IMPRESSION: No CT evidence of acute intracranial pathology.
--- NOTE | 2025-03-19 15:12 | W.ED.EXTPRO ---
HPI - Extremity Problem General: Chief complaint: Extremity Problem,Nontraumatic Stated complaint: Left foot pain slurred speech Time Seen by Provider: 03/19/25 14:53 History of Present Illness: 30-year-old female presents emergency room primarily complaining of left foot pain. She also states she had slurred speech last couple days since she ran out of her prednisone. She has no other deficits she is able to move all of her extremities no difficulty with vision or balance. A year ago she had an open reduction internal fixation of a foot fracture with Dr. Ramon now she has tenting of the skin in the area where the surgery was done. Has not had any fever sweats or chills. Associated symptoms: Deny chest pain, fever(s) or rash Related Data Home Medications ?Medication ?Instructions ?Recorded ?Confirmed albuterol sulfate 2.5 mg/3 mL 2.5 mg inhalation Q6H PRN 04/23/24 03/19/25 (0.083 %) solution for nebulization Shortness Of Breath Or Wheezing Previous Rx's ?Medication ?Instructions ?Recorded fluticasone 250 mcg-salmeterol 50 1 inh inhalation BID #60 ea 01/24/23 mcg/dose blistr powdr for inhalation (Advair Diskus) tiotropium bromide 18 mcg capsule 1 cap inhalation DAILY #90 06/21/23 with inhalation device (Spiriva inhalations with HandiHaler) acetaminophen 325 mg capsule 325 mg PO Q4H PRN fever or pain 05/02/24 #60 caps ibuprofen 800 mg tablet 800 mg PO TID PRN pain #60 tabs 05/02/24 cyclobenzaprine 10 mg tablet 10 mg PO TID PRN muscle spasm #30 06/20/24 tabs leflunomide 20 mg tablet 20 mg PO DAILY #90 tabs 07/23/24 albuterol sulfate 90 mcg/actuation See Rx Instructions .Route 08/09/24 aerosol inhaler (Ventolin HFA) .COMPLEX #18 grams duloxetine 60 mg capsule,delayed 60 mg PO .morning #30 caps 11/09/24 release olanzapine 5 mg disintegrating 5 mg PO DAILY PRN 11/09/24 tablet anxiety/agitation #60 tabs olanzapine 5 mg tablet 5 mg PO BEDTIME #30 tabs 11/09/24 potassium chloride 10 mEq 10 meq PO DAILY 30 days #30 tabs 11/23/24 tablet,extended release cephalexin 750 mg capsule 750 mg PO BID abscess #14 caps 12/04/24 pantoprazole 40 mg tablet,delayed 40 mg PO DAILY #30 tabs 01/21/25 release sulfasalazine 500 mg tablet See Rx Instructions .Route 01/21/25 .COMPLEX #120 tabs tofacitinib 5 mg tablet (Xeljanz) 5 mg PO BID #60 tabs 01/21/25 cephalexin 500 mg capsule 500 mg PO TID 7 days #21 caps 03/19/25 prednisone 5 mg tablet 5 mg PO DAILY #10 tabs 03/19/25 Allergies Allergy/AdvReac Type Severity Reaction Status Date / Time morphine Allergy ADR-Itching Verified 03/19/25 13:56 Review of Systems Const: Denies: fever(s) or chills Card: Denies: chest pain Resp: Denies: dyspnea GI: Denies: abdominal pain : Denies: dysuria, urinary frequency or urinary urgency Musc: Denies: neck pain or back pain Skin/Breast: Denies: rash PFSH ED PFSH: Medical History Abscess of axilla, right Cannabis use disorder, moderate, in sustained remission, dependence last use 07/10/23 Methamphetamine use disorder, moderate, in sustained remission, dependence last use 07/10/23 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 Evans Asthma Diagnosed as a child. It is usually with as needed albuterol, Advair --managed by boatbuilder wood Dr. Moya at [facility] Seropositive rheumatoid arthritis of multiple sites Surgical History Status post tubal ligation 02/25/2020----total salpingectomy at time of second performed by Dr. Muñoz at [facility]. Pathology showed benign pathology of both tubes H/O section X 2 06/22/2017---primary low transverse delivery by Dr. Muñoz at [facility] for PROM with breech presentation. ---->single layer closure with no extensions. 02/25/2020--> repeat delivery with total salpingectomy for twin gestation by Dr. muñoz at [facility] H/O lumpectomy (~2010) Left breast-- benign Family History Grandmother Family history of thyroid problem Maternal grandmother Heart disease Maternal grandmother Diabetes Maternal grandmother Grandfather Stroke Maternal granfather Heart disease Maternal grandfather Denies family history of Colon cancer Ovarian cancer Hyperlipidemia Breast cancer Hypertension Uterine cancer Social History Smoking and tobacco/nicotine status: current every day tobacco/nicotine user cigarettes [ Other cigarette details: 1cigarette a week] and e-cigarettes E-Cigarette Details: e-cigarette and with nicotine E-cig/vape details: 1500 puff goes through it in a week or so Quit status (tobacco/nicotine): not considering quitting Second hand smoke exposure: Yes Alcohol intake: former Former alcohol use details: 9 months since last drink Substance/Drug Use: current Other substance/drug use details: End of June 2024 Adopted: No Caregiver/support person: No Lives independently: Yes Household members: spouse and children Housing: Manufactured/Mobile home Marital status: Marital status details: 8 years Number of children: 3 Number of grandchildren: 0 Highest education level completed: Associate Degree: Occupational, Technical, Vocational Program 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 service: No Current occupational status: employed Current occupation: [employer] Current occupational exposures/hazards: No Pets and animals: Yes Pets & animals: farm animals Farm Animals: chicken/turkey/other poultry Leisure activites: other Leisure activities details: watch TV, crafting Sexually active: Yes Do you think of yourself as: Straight/Heterosexual Current gender identity: Female Ariadna/Zoroastrian: None Special ariadna needs: No Agree to transfusion: Yes Female Reproductive History: Para: 3 Spontaneous abortions: No Physical Exam Const: GENERAL APPEARANCE: cooperative ORIENTATION/CONSCIOUSNESS: Yes awake, Yes oriented to person, Yes oriented to place and Yes oriented to time HENMT: COMMON NORMALS: normocephalic, atraumatic and hearing grossly normal bilaterally HEAD & SCALP: normocephalic and atraumatic Resp: COMMON NORMALS: normal respiratory effort, No retractions, No use of accessory muscles and clear to auscultation bilaterally AUSCULTATION: clear to auscultation bilaterally Cardio: COMMON NORMALS: regular rate, regular rhythm and No murmurs present (Cardio) RATE: regular rate RHYTHM: regular rhythm GI: COMMON NORMALS: Soft to palpation and No hepatosplenomegaly present AUSCULTATION: Yes normoactive bowel sounds PALPATION: Yes Soft to palpation, No Tenderness to palpation present (GI), No Guarding due to palpation present (GI) and Yes No hepatosplenomegaly present Extremity: OTHER: Left foot has attempted skin with overlying skin devascularized. Corresponds to prominent screw that has backed out of the tarsal bones. Neuro: SENSORIUM/ORIENTATION: Yes oriented to person, Yes oriented to place and Yes oriented to time Skin: COMMON NORMALS: no rashes or lesions noted GENERAL SKIN EXAM: no rashes or lesions noted Course Vital Signs: Vital signs: Vital Signs Temperature 98.2 F 03/19/25 13:50 Pulse Rate 90 03/19/25 17:06 Respiratory Rate 16 03/19/25 17:06 Blood Pressure 112/82 03/19/25 16:40 Pulse Oximetry 98 03/19/25 17:06 Oxygen Delivery Me thod Room Air 03/19/25 13:50 MDM - Extremity (Nontraumatic) Medical Decision Making CT of the head negative there is no further findings of neurologic deficits. Patient is reporting weakness and intermittent slurring of her words. I would not finding any other neurologic deficits on this may be due to adrenal insufficiency from her stopping prednisone treatment 10 mg she tells me for a number of years and recently just stopped because her prescription ran out. Concerned that this may also be part of why she had the screw orthopedic screw in her foot back out if she is beginning to get osteoporosis she relates having been on the steroids for years. We did contact Dr. Vazquez she was kind enough to come to the emergency room and remove the screw at the bedside. He asked that we discharge patient home on Keflex which she did. Will start the patient on prednisone at 5 mg/day encouraged her to follow-up with her primary care doctor or her lan support specialist as soon as possible to discuss whether or not she is retitrated back up or titrate off of the prednisone. Medical Records I reviewed the patient's medical records. Lab Data I reviewed the patient's lab results. 03/19/25 15:34 03/19/25 16:36 Radiology Impressions Foot X-Ray 03/19/25 14:53 Impression: 1. Movement of long orthopedic screw such that its proximal portion now bulges the medial skin of the left foot. 2. No change in medial plate extending from the talus to the first cuneiform. 3. No change in sclerosis of tarsal navicular. Head CT 03/19/25 15:09 IMPRESSION: No CT evidence of acute intracranial pathology. Laboratory Results WBC 8.42 10^3/uL (3.29-11.43) 03/19/25 15:34 RBC 4.62 10^6/uL (3.85-5.65) 03/19/25 15:34 Hgb 13.40 g/dL (11.27-16.99) 03/19/25 15:34 Hct 42.7 % (36-47) 03/19/25 15:34 MCV 92.4 fl (85-98) 03/19/25 15:34 MCH 29.0 pg (27-33) 03/19/25 15:34 MCHC 31.4 g/dL (30-55) 03/19/25 15:34 RDW 15.2 % (12.1-15.1) H 03/19/25 15:34 Plt Count 362 10^3/cmm (157-399) 03/19/25 15:34 MPV 10.3 fL (7.4-10.4) 03/19/25 15:34 Neut % (Auto) 71.0 % 03/19/25 15:34 Lymph % (Auto) 15.1 % 03/19/25 15:34 [place] % (Auto) 6.7 % 03/19/25 15:34 Eos % (Auto) 5.7 % 03/19/25 15:34 Baso % (Auto) 1.1 % 03/19/25 15:34 Neut # (Auto) 5.99 10^3/uL (1.8-7.7) 03/19/25 15:34 Lymph # (Auto) 1.3 10^3/uL (0.8-4.8) 03/19/25 15:34 [place] # (Auto) 0.6 10^3/uL (0.2-0.9) 03/19/25 15:34 Eos # (Auto) 0.5 10^3/uL (0.0-0.8) 03/19/25 15:34 Baso # (Auto) 0.1 10^3/uL (0.0-0.1) 03/19/25 15:34 Nucleated RBC % (auto) 0 % 03/19/25 15:34 Nucleated RBCs # 0.0 /100WBC 03/19/25 15:34 Sodium 144 mmol/L (136-145) 03/19/25 16:36 Potassium 4.1 mmol/L (3.5-5.1) 03/19/25 16:36 Chloride 108 mmol/L (98-107) H 03/19/25 16:36 Carbon Dioxide 28 mmol/L (22-29) 03/19/25 16:36 Anion Gap 12.1 (5-19) 03/19/25 16:36 BUN 8 mg/dL (6-20) 03/19/25 16:36 Creatinine 0.6 mg/dL (0.5-0.9) 03/19/25 16:36 GFR Calculation 116.6 mL/min (90-130) 03/19/25 16:36 Glucose 79 mg/dL (65-115) 03/19/25 16:36 Calculated Osmolality 295 mOsm/kg (285-295) 03/19/25 16:36 Calcium 9.2 mg/dL (8.5-10.5) 03/19/25 16:36 Total Bilirubin 0.3 mg/dL (0.15-1.2) 03/19/25 16:36 AST 5 U/L (0-32) 03/19/25 16:36 ALT 15 U/L (0-33) 03/19/25 16:36 Alkaline Phosphatase 91 U/L (35-105) 03/19/25 16:36 C-Reactive Protein 3.0 mg/L (0.0-4.9) 03/19/25 16:36 Total Protein 7.1 g/dL (6.6-8.7) 03/19/25 16:36 Albumin 4.1 g/dL (3.5-5.2) 10/07/25 16:36 Globulin 3.0 g/dL (1.3-4.6) 03/19/25 16:36 Random Cortisol Cancelled 03/19/25 15:34 All radiology interpretation(s) finalized by discharge Discharge Plan Discharge Patient Disposition: Home Clinical Impression: Foreign body in foot Qualifiers: Encounter type: initial encounter Laterality: left Qualified Code(s): S90.852A - Superficial foreign body, left foot, initial encounter Condition: Stable Prescriptions: New cephalexin 500 mg capsule 500 mg PO TID 7 Days Qty: 21 0RF prednisone 5 mg tablet 5 mg PO DAILY Qty: 10 0RF No Action olanzapine 5 mg tablet,disintegrating 5 mg PO DAILY PRN (Reason: anxiety/agitation) Qty: 60 3RF Rx Instructions: May take one tablet daily as needed for severe anxiety/agitation duloxetine 60 mg capsule,delayed release(DR/EC) 60 mg PO .morning Qty: 30 6RF Rx Instructions: Take one capsule every morning olanzapine 5 mg tablet 5 mg PO BEDTIME Qty: 30 6RF Rx Instructions: Take one tablet at bedtime cyclobenzaprine 10 mg tablet 10 mg PO TID PRN (Reason: muscle spasm) Qty: 30 0RF leflunomide 20 mg tablet 20 mg PO DAILY Qty: 90 1RF lidocaine-epinephrine 2 %-1:100,000 solution 4 ml Infiltration ONCE Qty: 4 0RF cephalexin 750 mg capsule 750 mg PO BID Qty: 14 0RF fluticasone propion-salmeterol [Advair Diskus] 250-50 mcg/dose blister with device 1 inh inhalation BID Qty: 60 4RF Spiriva with HandiHaler 18 mcg capsule, w/inhalation device 1 cap inhalation DAILY Qty: 90 4RF Rx Instructions: puncture 1 cap using device; one dose = 2 inhalations albuterol sulfate [Ventolin HFA] 90 mcg/actuation HFA aerosol inhaler See Rx Instructions .ROUTE .COMPLEX Qty: 18 4RF Dose Instruction: INHALE TWO PUFFS EVERY 6 HOURS NEEDED FOR SHORTNESS OF BREATH or wheezing Rx Instructions: INHALE TWO PUFFS EVERY 6 HOURS NEEDED FOR SHORTNESS OF BREATH or wheezing potassium chloride 10 mEq tablet extended release 10 meq PO DAILY 30 Days Qty: 30 3RF sulfasalazine 500 mg tablet See Rx Instructions .ROUTE .COMPLEX Qty: 120 1RF Dose Instruction: TAKE 2 TABLETS BY MOUTH TWICE DAILY. take with food/snack Rx Instructions: TAKE 2 TABLETS BY MOUTH TWICE DAILY. take with food/snack Xeljanz 5 mg tablet 5 mg PO BID Qty: 60 1RF Rx Instructions: TAKE ONE TABLET BY MOUTH TWICE DAILY pantoprazole 40 mg tablet,delayed release (DR/EC) 40 mg PO DAILY Qty: 30 1RF albuterol sulfate 2.5 mg /3 mL (0.083 %) solution for nebulization 2.5 mg inhalation Q6H PRN (Reason: Shortness Of Breath Or Wheezing) ibuprofen 800 mg tablet 800 mg PO TID PRN (Reason: pain) Qty: 60 0RF acetaminophen 325 mg capsule 325 mg PO Q4H PRN (Reason: fever or pain) Qty: 60 0RF Discharge Orders: Discharge ED (Routine); Ordered 03/19/25 Ordered By: Donn Schmidt Referrals: Stew Koch DO [Primary Care Provider, Family Practice] Patient Instructions: Opioid Safety, Pain Management, Patient Portal & Jay Jay Instructions Activity Restrictions/Additional Instructions: Thank you [facility] choosing [facility] healthcare needs today. It is very important that you follow up as instructed or that you return to the Emergency Department should you have concerns or if your condition changes or worsens in any way. Emergency department visits are focused on emergent conditions, in some cases you may require further evaluation on an outpatient basis. You were seen in the emergency room with complaint of eye orthopedic screw protruding in the arch of your left foot. We contacted actually she came to the ER and removed this in the emergency room. He also complained about weakness and difficulty with speech intermittently. This been going on for several days CT of your head did not show any acute findings suspect this may be related to your sudden stopping of your prednisone. We did give you prednisone to take 5 mg once daily for the next 10 days you should follow-up with your physician that to see whether or not you should continue this and at what dose. (Please note that included in your discharge packet is information concerning opioid safety and pain management. 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
[2025-03-19 15:36] VITALS: BP 136/88; PULSE 91; RESP 16; O2SAT 97
[2025-03-19 16:16] LABS: Hematocrit 42.7 % (36-47); Hemoglobin 13.40 g/dL (11.27-16.99); Mean Corpuscular HGB Conc 31.4 g/dL (30-55); Mean Corpuscular Hemoglobin 29.0 pg (27-33); Mean Corpuscular Volume 92.4 fl (85-98); Nucleated Red Blood Cells % 0 %; Platelet Count 362 10^3/cmm (157-399); Red Blood Count 4.62 10^6/uL (3.85-5.65); White Blood Count 8.42 10^3/uL (3.29-11.43)
[2025-03-19 16:40] VITALS: BP 112/82; PULSE 82; RESP 16; O2SAT 100
--- NOTE | 2025-03-19 16:41 | PM.CONSULT ---
Providers/Reason For Consult Consulting Physician/Specialty*: Dr. Osbaldo Ramon, [facility].P.M./podiatry Reason for Consult*: Failure orthopedic hardware left foot Primary Care Provider: Stew Koch, DO History of Present Illness History of Present Illness Ayla Gaston is a 30 year old female Medications/Allergies Home Medications ?Medication ?Instructions ?Recorded ?Confirmed ?Last Taken ?Type fluticasone 250 mcg-salmeterol 50 1 inh inhalation BID #60 ea 01/24/23 03/19/25 04/22/24 Rx mcg/dose blistr powdr for inhalation (Advair Diskus) tiotropium bromide 18 mcg capsule 1 cap inhalation DAILY #90 06/21/23 03/19/25 04/22/24 Rx with inhalation device (Spiriva inhalations with HandiHaler) albuterol sulfate 2.5 mg/3 mL 2.5 mg inhalation Q6H PRN 04/23/24 03/19/25 04/22/24 History (0.083 %) solution for nebulization Shortness Of Breath Or Wheezing acetaminophen 325 mg capsule 325 mg PO Q4H PRN fever or pain 05/02/24 03/19/25 Unknown Rx #60 caps ibuprofen 800 mg tablet 800 mg PO TID PRN pain #60 tabs 05/02/24 03/19/25 Unknown Rx cyclobenzaprine 10 mg tablet 10 mg PO TID PRN muscle spasm #30 06/20/24 03/19/25 Unknown Rx tabs leflunomide 20 mg tablet 20 mg PO DAILY #90 tabs 07/23/24 03/19/25 Unknown Rx albuterol sulfate 90 mcg/actuation See Rx Instructions .Route 08/09/24 03/19/25 Unknown Rx aerosol inhaler (Ventolin HFA) .COMPLEX #18 grams duloxetine 60 mg capsule,delayed 60 mg PO .morning #30 caps 11/09/24 03/19/25 Unknown Rx release olanzapine 5 mg disintegrating 5 mg PO DAILY PRN 11/09/24 03/19/25 Unknown Rx tablet anxiety/agitation #60 tabs olanzapine 5 mg tablet 5 mg PO BEDTIME #30 tabs 11/09/24 03/19/25 Unknown Rx potassium chloride 10 mEq 10 meq PO DAILY 30 days #30 tabs 11/23/24 03/19/25 Unknown Rx tablet,extended release cephalexin 750 mg capsule 750 mg PO BID abscess #14 caps 12/04/24 03/19/25 Unknown Rx pantoprazole 40 mg tablet,delayed 40 mg PO DAILY #30 tabs 01/21/25 03/19/25 Unknown Rx release sulfasalazine 500 mg tablet See Rx Instructions .Route 01/21/25 03/19/25 Unknown Rx .COMPLEX #120 tabs tofacitinib 5 mg tablet (Xeljanz) 5 mg PO BID #60 tabs 01/21/25 03/19/25 Unknown Rx Allergies Allergy/AdvReac Type Severity Reaction Status Date / Time morphine Allergy ADR-Itching Verified 03/19/25 13:56 PFSH Acute PFSH: Medical History Abscess of axilla, right Cannabis use disorder, moderate, in sustained remission, dependence last use 07/10/23 Methamphetamine use disorder, moderate, in sustained remission, dependence last use 07/10/23 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 Evans Asthma Diagnosed as a child. It is usually with as needed albuterol, Advair --managed by microfilm machine operator Dr. Moya at [facility] Seropositive rheumatoid arthritis of multiple sites Surgical History Status post tubal ligation 02/25/2020----total salpingectomy at time of second performed by Dr. Muñoz at [facility]. Pathology showed benign pathology of both tubes H/O section X 2 06/22/2017---primary low transverse delivery by Dr. Muñoz at [facility] for PROM with breech presentation. ---->single layer closure with no extensions. 02/25/2020--> repeat delivery with total salpingectomy for twin gestation by Dr. muñoz at [facility] H/O lumpectomy (~2010) Left breast-- benign Family History Grandmother Family history of thyroid problem Maternal grandmother Heart disease Maternal grandmother Diabetes Maternal grandmother Grandfather Stroke Maternal granfather Heart disease Maternal grandfather Denies family history of Colon cancer Ovarian cancer Hyperlipidemia Breast cancer Hypertension Uterine cancer Social History Smoking and tobacco/nicotine status: current every day tobacco/nicotine user cigarettes [ Other cigarette details: 1cigarette a week] and e-cigarettes E-Cigarette Details: e-cigarette and with nicotine E-cig/vape details: 1500 puff goes through it in a week or so Quit status (tobacco/nicotine): not considering quitting Second hand smoke exposure: Yes Alcohol intake: former Former alcohol use details: 9 months since last drink Substance/Drug Use: current Other substance/drug use details: End of June 2024 Adopted: No Caregiver/support person: No Lives independently: Yes Household members: spouse and children Housing: Manufactured/Mobile home Marital status: Marital status details: 8 years Number of children: 3 Number of grandchildren: 0 Highest education level completed: Associate Degree: Occupational, Technical, Vocational Program 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 service: No Current occupational status: employed Current occupation: [employer] Current occupational exposures/hazards: No Pets and animals: Yes Pets & animals: farm animals Farm Animals: chicken/turkey/other poultry Leisure activites: other Leisure activities details: watch TV, crafting Sexually active: Yes Do you think of yourself as: Straight/Heterosexual Current gender identity: Female Ariadna/Orthodoxy: None Special ariadna needs: No Agree to transfusion: Yes Female Reproductive History: Para: 3 Spontaneous abortions: No Vitals/I&O/Wt Last Vital Signs Temp 98.2 F 03/19/25 13:50 Pulse 82 03/19/25 16:40 Resp 16 03/19/25 16:40 BP 112/82 03/19/25 16:40 Pulse Ox 100 03/19/25 16:40 O2 Del Method Room Air 03/19/25 13:50 Weight last 48 hrs Weight 172 lb Data 03/19/25 15:34 Micro: Microbiology 03/19/25 15:36 Blood Culture - Preliminary Blood SPECIMEN COLLECTED 03/19/25 15:34 Blood Culture - Preliminary Blood SPECIMEN COLLECTED A&P PDMP PDMP Reviewed: Not Reviewed Coding Level of Care Code Acute Code for Chg Fwd
[2025-03-19 17:06] VITALS: PULSE 90; RESP 16; O2SAT 98
[2025-03-19 17:07] LABS: Alanine Aminotransferase 15 U/L (0-33); Albumin Level 4.1 g/dL (3.5-5.2); Alkaline Phosphatase 91 U/L (35-105); Anion Gap 12.1 (5-19); Blood Urea Nitrogen 8 mg/dL (6-20); Calcium 9.2 mg/dL (8.5-10.5); Carbon Dioxide 28 mmol/L (22-29); Chloride 108 mmol/L (98-107); Creatinine Clr Calc Pharmacy 146.1966; Globulin 3.0 g/dL (1.3-4.6); Glucose 79 mg/dL (65-115); Osmolality Calculated 295 mOsm/kg (285-295); Potassium 4.1 mmol/L (3.5-5.1); Sodium 144 mmol/L (136-145); Total Protein 7.1 g/dL (6.6-8.7)
[2025-03-19 17:16] LABS: Aspartate Amino Transferase 5 U/L (0-32)
[2025-03-19] MEDS: HYDROcodone-acetaminophen 5-325 mg Tablet 1 TAB PO (17:26)
[2025-03-20 22:37] LABS: Bacillus cereus group Not Detected (NOT DETECT); Bacillus subtillis group Not Detected (NOT DETECT); Corynebacterium Not Detected (NOT DETECT); Cutibacterium acnes (P.acnes) Not Detected (NOT DETECT); Enterococcus faecalis Not Detected (NOT DETECT); Enterococcus faecium Not Detected (NOT DETECT); Listeria Not Detected (NOT DETECT); Micrococcus Not Detected (NOT DETECT); Pan Candida Not Detected (NOT DETECT); Pan Gram-Negative Not Detected (NOT DETECT); Staphylococcus epidermidis Not Detected (NOT DETECT); Staphylococcus lugdunensis Not Detected (NOT DETECT); Staphylococcus species Not Detected (NOT DETECT); Streptococcus anginosus group Not Detected (NOT DETECT); Streptococcus pyogenes Not Detected (NOT DETECT); Streptococcus species Not Detected (NOT DETECT)
== END 2025-03-19 17:36 | disposition home or self-care (01) ==
PROVIDERS: Emergency Provider Family Medicine; PCP Family Medicine
DX: S90.852A Superficial foreign body, left foot, initial encounter (principal); F17.210 Nicotine dependence, cigarettes, uncomplicated; W45.8XXA Other foreign body or object entering through skin, initial encounter
CPT/HCPCS: 36415; 70450; 73630; 80053; 80307; 81000; 82533; 85025; 86140; 87040; 87077; 87086; 87150; 87184; 87205; 99284; J9999

== ENCOUNTER → 2025-04-16 11:24 | Outpatient (BNVA) | payer BC, MEDICAID, SELFPAY ==
[2024-08-27 16:00] VITALS: BP 130/88; BMI 28.5
== END ==
PROVIDERS: PCP Family Medicine; Visit Provider Podiatrist Foot & Ankle Surgery
DX: M79.672 Pain in left foot (principal); Z98.890 Other specified postprocedural states; L08.9 Local infection of the skin and subcutaneous tissue, unspecified; M62.838 Other muscle spasm
CPT/HCPCS: 73630

== ENCOUNTER 2025-04-16 12:12 | Outpatient (CLI) | payer BC, MEDICAID, SELFPAY ==
[2024-08-27 16:00] VITALS: BP 130/88; BMI 28.5
[2025-04-16 12:34] LABS: Hematocrit 42.1 % (36-47); Hemoglobin 13.50 g/dL (11.27-16.99); Mean Corpuscular HGB Conc 32.1 g/dL (30-55); Mean Corpuscular Hemoglobin 28.6 pg (27-33); Mean Corpuscular Volume 89.2 fl (85-98); Nucleated Red Blood Cells % 0 %; Platelet Count 364 10^3/cmm (157-399); Red Blood Count 4.72 10^6/uL (3.85-5.65); White Blood Count 6.04 10^3/uL (3.29-11.43)
[2025-04-16 13:01] LABS: Alanine Aminotransferase 24 U/L (0-33); Albumin Level 4.5 g/dL (3.5-5.2); Alkaline Phosphatase 97 U/L (35-105); Aspartate Amino Transferase 21 U/L (0-32); Globulin 2.9 g/dL (1.3-4.6); Total Protein 7.4 g/dL (6.6-8.7)
== END 2025-04-16 12:13 | disposition home or self-care (01) ==
LOC: LAB 12:12
PROVIDERS: PCP Family Medicine; Visit Provider Internal Medicine Rheumatology
DX: M05.79 Rheumatoid arthritis with rheumatoid factor of multiple sites without organ or systems involvement (principal)
CPT/HCPCS: 80076; 82565; 85025; 85651; 86140